=== PATIENT | female | born 1940 | race Caucasian/White ===

== ENCOUNTER 2016-10-02 08:35 | Emergency (ER) | payer OTHER ==
[~2016-10-02] VITALS: Ht 160 cm; Wt 60.5 kg
[~2016-10-02 08:35] MED LIST: CALC-354 PO; OMEG10007 PO; VITA400C15 PO
[2016-10-02 08:39] VITALS: PULSE 110; TEMP 36.5; O2SAT 97; Ht 160 cm; Wt 60.5 kg
[2016-10-02] MEDS ORDERED: VITA1TAB4 PO (09:39)
[2016-10-02] MEDS ORDERED: CINN1CAP2 PO (09:41)
[2016-10-02] MEDS ORDERED: ASPI81TA28 PO (09:42)
[2016-10-02] MEDS ORDERED: MULT-506 PO (09:42)
[2016-10-02 10:16] LABS: BASO % 0.1 %; BASO ABS # 0.01 K/uL (0-0.2); COMPLETE YES; EOS % 0.8 %; HEMATOCRIT 39.7 % (37-47); IG% 0.1 %; LYMPH % 15.5 %; LYMPH ABS # 1.24 K/uL (1.2-3.4); MEAN CELL VOLUME 89.8 fL (80-100); MEAN CORPUSCULAR HEMOGLOBIN 29.9 pg (25-34); MEAN CORPUSCULAR HGB CONC 33.2 g/dl (32-36); MEAN PLATELET VOLUME 9.7 fL (7.4-10.4); MONO % 8.8 %; NEUT % 74.7 %; PLATELET COUNT 236 K/uL (130-400); RED BLOOD COUNT 4.42 M/uL (4.2-5.4); WHITE BLOOD COUNT 7.98 K/uL (4.8-10.8)
[2016-10-02 10:24] LABS: PROTHROMBIN TIME (PATIENT) 10.5 SECONDS (9.0-12.0)
[2016-10-02 10:36] LABS: BUN/CREATININE RATIO 21.9 (10-20); C-REACTIVE PROTEIN 1.18 mg/dl (0-0.29); CALCIUM 9.6 mg/dl (8.5-10.1); POTASSIUM 4.1 mmol/L (3.5-5.1)
[2016-10-02 10:38] LABS: ALB/GLOB RATIO 1.1 (0.9-2)
--- NOTE | 2016-10-02 10:49 | DIAGNOSTIC IMAGING REPORT ---
LEFT KNEE 3 VIEWS CLINICAL HISTORY: LEFT, POPLITEAL RASH AND PAIN X WEEKS pain COMPARISON: None. DISCUSSION: Considerable degenerative change all major joint compartments. Reactive osteophytic change throughout. There is no significant joint effusion. There is no fracture or dislocation. IMPRESSION: Considerable degenerative change. No acute process. Electronically signed by: Ortega Borjas M.D. 10/02/2016 10:48 AM Dictated Date/Time: 10/02/2016 10:33 AM
[2016-10-02 11:43] LABS: LYME DISEASE AB IGM NEG (NEG)
[2016-10-02 11:47] LABS: LYME DISEASE AB IGG POS (NEG)
[2016-10-02] MEDS ORDERED: CEFTRIAXONE SOD INJ 1 GM ADDVIAL IV STA (11:58)
[2016-10-02] MEDS ORDERED: DOXY100C76 PO (12:29)
--- NOTE | 2016-10-02 12:29 | EMERGENCY ROOM VISIT NOTE ---
History First contact with patient: 08:52 Chief Complaint: KNEEPAIN Stated Complaint: LEFT KNEE History of Present Illness Patient is a 76-year-old white female who presents emergency department for evaluation of a red rash behind her left knee. She's had symptoms for about 2 or 3 weeks. She states it was initially a small, round, red rash, which has progressively enlarged, and is wrapping around medially and laterally towards the anterior aspect of the knee. She notes that it is warm, and slightly swollen. She has a history of chronic knee pain, with a remote history of a knee sprain a couple of years ago, but denies any increase in pain. She denies any fever or chills. She is outside in her garden a lot. Her is presently being treated for Lyme disease. She denies any nausea, vomiting, chest pain, shortness of breath, other joint pain or swelling, fever, chills or other skin rashes. She reports that her tetanus is up-to-date. She reports that she can still walk and bend and bear weight on the leg normally. She denies any other joint pain or swelling. Review of Systems Review of systems as per HPI. All other systems reviewed were negative. 10 systems reviewed. Past Medical/Surgical History Medical Problems: (1) Abdominal pain (2) Diabetes Surgical Problems: (1) History of ventral hernia repair Electronic medical records are reviewed and summarized as above/below. See Problem List. Social History Smoking Status: Never Smoker Marital Status: Housing Status: lives with family Occupation Status: retired Current/Historical Medications Scheduled Aspirin (Aspirin Ec), 81 MG PO DAILY Calcium Carbonate-Cholecalcife (Caltrate 600+D), 1 TAB PO DAILY Cinnamon (Cinnamon), 500 MG PO DAILY Doxycycline Monohydrate (Monodox), 100 MG PO BID Fish Oil ([place]-3), 1 CAP PO DAILY Multivitamin (Multivitamin), 1 TAB PO DAILY Vitamin E (Vitamin E), 400 UNITS PO DAILY Allergies Coded Allergies: Amoxicillin (Verified Allergy, Unknown, blisters, 10/02/16) Clavulanic Acid (Verified Allergy, Unknown, blisters, 10/02/16) Physical Exam Vital Signs Date Time Temp Pulse Resp B/P (MAP) Pulse Ox O2 Delivery O2 Flow Rate FiO2 10/02/16 12:57 142/80 10/02/16 11:08 145/84 10/02/16 08:39 36.5 110 18 154/92 97 Room Air Physical Exam CONSTITUTIONAL: Patient is a pleasant, well-appearing 76-year-old white female who is awake and alert and in no acute distress. HEENT: Normocephalic, atraumatic. Pupils equal, round, reactive to light and accommodation. EOMs intact without nystagmus. Sclera are anicteric. Tympanic membranes intact, with normal landmarks. External canals are clear. Oral and nasopharynx are clear. Mucous membranes are moist. CARDIOVASCULAR: Regular rate and rhythm, with normal S1 and S2, no murmur or gallop or rub is heard. No carotid bruits auscultated. No JVD. Peripheral pulses easily palpable. RESPIRATORY: Breath sounds equal and clear to auscultation without wheezes, rales, or rhonchi heard. Full and equal chest expansion without accessory muscle use or retractions. INTEGUMENTARY: Erythematous, non-blanchable oval-shaped rash, noted in the right popliteal space, extending medially and laterally almost circumferential around the entire knee. There is no petechiae, vesicles noted. Slightly warm, no induration appreciated. There is no lymphangitic streaking. MUSCULOSKELETAL: Examination of the left knee notes the skin changes as above, primarily in the popliteal space. Skin is otherwise intact. There is no prepatellar soft tissue swelling or effusion. Joint effusion is palpable. The knee is nontender to palpation. Range of motion is full. Normal gait. No ligamentous instability is appreciated. The calf is soft and nontender. No palpable cords. Negative Homans sign. LYMPH: No lymphadenopathy. Medical Decision & Procedures ER Provider Diagnostic Interpretation: LEFT KNEE 3 VIEWS CLINICAL HISTORY: LEFT, POPLITEAL RASH AND PAIN X WEEKS pain COMPARISON: None. DISCUSSION: Considerable degenerative change all major joint compartments. Reactive osteophytic change throughout. There is no significant joint effusion. There is no fracture or dislocation. IMPRESSION: Considerable degenerative change. No acute process. Laboratory Results 10/02/16 09:50 Red Blood Count 4.42, Mean Corpuscular Volume 89.8, Mean Corpuscular Hemoglobin 29.9, Mean Corpuscular Hemoglobin Concent 33.2, Mean Platelet Volume 9.7, Neutrophils (%) (Auto) 74.7, Lymphocytes (%) (Auto) 15.5, Monocytes (%) (Auto) 8.8, Eosinophils (%) (Auto) 0.8, Basophils (%) (Auto) 0.1, Neutrophils # (Auto) 5.96, Lymphocytes # (Auto) 1.24, Monocytes # (Auto) 0.70, Eosinophils # (Auto) 0.06, Basophils # (Auto) 0.01 10/02/16 09:50 Test 10/02/16 09:50 White Blood Count 7.98 K/uL (4.8-10.8) Red Blood Count 4.42 M/uL (4.2-5.4) Hemoglobin 13.2 g/dL (12.0-16.0) Hematocrit 39.7 % (37-47) Mean Corpuscular Volume 89.8 fL (80-100) Mean Corpuscular Hemoglobin 29.9 pg (25-34) Mean Corpuscular Hemoglobin Concent 33.2 g/dl (32-36) Platelet Count 236 K/uL (130-400) Mean Platelet Volume 9.7 fL (7.4-10.4) Neutrophils (%) (Auto) 74.7 % Lymphocytes (%) (Auto) 15.5 % Monocytes (%) (Auto) 8.8 % Eosinophils (%) (Auto) 0.8 % Basophils (%) (Auto) 0.1 % Neutrophils # (Auto) 5.96 K/uL (1.4-6.5) Lymphocytes # (Auto) 1.24 K/uL (1.2-3.4) Monocytes # (Auto) 0.70 K/uL (0.11-0.59) Eosinophils # (Auto) 0.06 K/uL (0-0.5) Basophils # (Auto) 0.01 K/uL (0-0.2) RDW Standard Deviation 43.7 fL (36.4-46.3) RDW Coefficient of Variation 13.2 % (11.5-14.5) Immature Granulocyte % (Auto) 0.1 % Immature Granulocyte # (Auto) 0.01 K/uL (0.00-0.02) Erythrocyte Sedimentation Rate 34 mm/hr (0-21) Prothrombin Time 10.5 SECONDS (9.0-12.0) Prothromb Time International Ratio 1.0 (0.9-1.1) Activated Partial Thromboplast Time 25.6 SECONDS (21.0-31.0) Partial Thromboplastin Ratio 1.0 Anion Gap 6.0 mmol/L (3-11) Est Creatinine Clear Calc Drug Dose 39.6 ml/min Estimated GFR () 63.4 Estimated GFR (Non- 54.7 BUN/Creatinine Ratio 21.9 (10-20) Calcium Level 9.6 mg/dl (8.5-10.1) Total Bilirubin 0.7 mg/dl (0.2-1) Aspartate Amino Transf (AST/SGOT) 17 U/L (15-37) Alanine Aminotransferase (ALT/SGPT) 23 U/L (12-78) Alkaline Phosphatase 91 U/L (45-117) C-Reactive Protein 1.18 mg/dl (0-0.29) Total Protein 7.2 gm/dl (6.4-8.2) Albumin 3.7 gm/dl (3.4-5.0) Globulin 3.5 gm/dl (2.5-4.0) Albumin/Globulin Ratio 1.1 (0.9-2) Lyme Disease IgG Antibody POS (NEG) Medications Administered Medications (Trade) Dose Ordered Sig/Kacy Route Start Time Stop Time Status Last Admin Dose Admin Ceftriaxone Sodium (Rocephin Inj) 1 gm NOW STAT IV 10/02/16 11:58 10/02/16 11:59 DC 10/02/16 12:51 1 GM ED Course The patient was seen and assessed as above. Old records were reviewed. IV lock was initiated and laboratory studies were collected including CBC with differential are, CRP, coags and CMP. Lyme screen was also drawn. Knee x-rays were obtained, and noted degenerative changes, without evidence for acute pathology. Laboratory studies noted a normal white count. Slight elevation of her sedimentation rate and CRP. Coags, electrolytes, liver and renal functions are within normal limits. Lyme IgG was positive, Western blot is pending. Clinically, the patient rash does appear consistent with an erythema migrans. She has had progressively worsening symptoms for about 2-3 weeks. She was given Rocephin 1 g IV. Differential diagnoses also entertained included septic joint, Lyme arthritis, DVT, superficial thrombophlebitis, cellulitis, among others. Patient was also independently evaluated by Dr. Myers, who concurred. The patient will be placed on doxycycline for presumed Lyme disease. She was educated only worrisome signs or symptoms for which they should return to the emergency department. She should otherwise follow up with her primary care provider next week. She is discharged home in good condition. Vital signs were stable. Medication reconciliation: I attest that I have personally reviewed the patient' s current medication list. Blood pressure screening: Patient was found to have a slightly elevated blood pressure due to circumstances. I do not believe that the patient requires hypertension monitoring. Medical Decision See Emergency Department course. Impression Primary Impression: Erythema migrans (Lyme disease) Departure Information Prescriptions Doxycycline Monohydrate (Monodox) 100 Mg Cap 100 MG PO BID, #21 CAP Prov: Pamella Romero PA 10/02/16 Referrals Neyda Moyer M.D. (PCP) Patient Instructions My [facility] Additional Instructions Doxycycline 100mg: Take one pill twice daily for 21 days for your infection. Take with food, but avoid dairy. Avoid prolonged sun exposure since this medication makes you temporarily more susceptible to sunburns. All antibiotics can cause diarrhea. If this occurs and you feel worse or it does not resolve in 1-2 days follow up with your doctor or return to the Emergency Department as this could be signs of serious underlying problems. Any medication can cause an allergic reaction, stop the pills immediately and return to the ER for rash, hives, breathing difficulties, or swelling. Ibuprofen(Motrin, Advil) may be used for fever or pain. Use 600mg every six hours as needed. Take with food. Avoid using more than 2400mg in a 24 hour period. Do not use 2400mg per day for more than three consecutive days without physician direction. Prolonged inappropriate use can lead to stomach upset or ulcers. This is available over the counter and typically comes in 200mg tablets. (AND/OR) Acetaminophen(Tylenol) may be used for fever or pain. Use 1000mg every eight hours as needed. Avoid using more than 3000mg in a 24 hour period. This is available over the counter. Rest and drink plenty of fluids. Continue current medications. Return to the ER for severe pain, persistent fevers, spreading redness, headache , vomiting, neck pain or stiffness, chest pain, palpitations or any worsening of your condition. Follow up with your primary physician within 2-3 days for a recheck of the current condition.
[2016-10-02 12:57] VITALS: BP 142/80
--- NOTE | 2016-10-02 15:20 | EMERGENCY ROOM VISIT NOTE ---
ED Visit Note First contact with patient: 08:52 I have personally evaluated this patient examined her and reviewed the pertinent labs and data. I have discussed the case with Luz Romero, the physician assistant drafter and agree with the plan. Please refer to the PA note. This patient comes in and has redness behind the left knee radiating around. It is circular. It may be consistent with Lyme/erythema migrans. The knee itself is not rare red or warm. X-rays of the knee are unremarkable. Her Lyme titer was positive for the IgG . Her is being treated for Lyme. We will cover her with antibiotics for possible Lyme disease or cellulitis. At this point she is neurologically and neurovascularly intact and there is nothing to suggest DVT or septic joint.
[2016-10-05 08:33] LABS: 18KDIGG BAND NONREACTIVE (NONREACTIVE); 23KDIGG BAND NONREACTIVE (NONREACTIVE); 23KDIGM BAND NONREACTIVE (NONREACTIVE); 28KDIGG BAND NONREACTIVE (NONREACTIVE); 30KDIGG BAND REACTIVE (NONREACTIVE); 39KDIGG BAND NONREACTIVE (NONREACTIVE); 39KDIGM BAND NONREACTIVE (NONREACTIVE); 41KDIGG BAND REACTIVE (NONREACTIVE); 41KDIGM BAND REACTIVE (NONREACTIVE); 45KDIGG BAND REACTIVE (NONREACTIVE); 58KDIGG BAND REACTIVE (NONREACTIVE); 66KDIGG BAND REACTIVE (NONREACTIVE); 93KDIGG BAND NONREACTIVE (NONREACTIVE)
== END 2016-10-02 13:45 | disposition home or self-care (01) ==
LOC: C.EDB 08:36
DX: A26.0 Cutaneous erysipeloid (principal); E11.9 Type 2 diabetes mellitus without complications; Z79.82 Long term (current) use of aspirin

== ENCOUNTER 2021-12-17 15:41 | Inpatient (IN) ==
[2021-12-17] MEDS ORDERED: SODIUM CHLORIDE 0.9% 1000ML 1,000 ML IV SCH (16:15)
[2021-12-17] MEDS ORDERED: SODIUM CHLORIDE 0.9% 500 ML IV SCH (16:15)
[2021-12-17 16:33] LABS: Basophils # (auto) 0.02 K/uL (0-0.2); Basophils % (auto) 0.1 %; Eosinophils # (auto) 0.01 K/uL (0-0.50); Eosinophils % (auto) 0.1 %; Hematocrit (blood only) 40.5 % (34.1-44.9); Hemoglobin 13.4 g/dl (12.0-16.0); Immature Granulocytes # (auto) 0.03 K/uL (0.00-0.02); Immature Granulocytes % (auto) 0.2 %; Lymphocytes # (auto) 1.32 K/uL (1.2-3.4); Lymphocytes % (auto) 9.7 %; Mean Corpuscular Hgb Conc 33.1 g/dL (32.0-36.0); Mean Corpuscular Volume 90.6 fL (80.0-100.0); Mean Platelet Volume 10.8 fL (9.4-12.3); Monocytes # (auto) 1.16 K/uL (0.24-0.82); Monocytes % (auto) 8.5 %; Neutrophils # (auto) 11.03 K/uL (1.4-6.5); Neutrophils % (auto) 81.4 %; Platelet Count 225 K/uL (130-400); RDW Coefficient of Variation 13.1 % (11.5-14.5); Red Blood Count 4.47 M/uL (3.93-5.22); White Blood Count 13.57 K/ul (4.8-10.8)
--- NOTE | 2021-12-17 16:38 | XRay Report ---
XR chest 1V portable HISTORY: weakness COMPARISON: Chest and abdominal series 06/12/2014. FINDINGS: Slightly rotated study. No pneumothorax. No pleural effusions. The cardiac silhouette remai ns borderline enlarged. There are low lung volumes. Mild diffuse interstitial thickening which is lik shanelle chronic. No new focal lung consolidations to suggest pneumonia. No evidence for pulmonary edema. IMPRESSION: No acute process. ACT 112: Negative or not required by law. Electronically signed by: Tristan Flynn M.D. 12/17/2021 4:37 PM
[2021-12-17 16:51] LABS: Albumin Globulin Ratio 1.7 (0.9-2); Albumin Level 3.9 gm/dl (3.4-5.0); BUN Creatinine Ratio 23.1 (10-20); Bilirubin,Total 0.9 mg/dl (0.2-1.0); Calcium 9.3 mg/dl (8.5-10.1); Creatinine Clr Calc Pharmacy 29.8 ml/min; Est GFR (African American) 50.6 ml/min; Est GFR (Non-African American) 43.7 ml/min; Globulin 2.3 gm/dl (2.5-4.0); Magnesium 1.9 mg/dl (1.7-2.4); Potassium 4.3 mmol/L (3.5-5.1); Total Protein 6.2 gm/dl (6.0-8.3)
[2021-12-17 16:56] LABS: Troponin I High Sensitivity 8.8 pg/ml (0-14)
[2021-12-17 17:00] LABS: Appearance Urine Clear (Clear); Bacteria Urine Automated Negative (Negative); Blood Urine Negative (Negative); Color Urine Dark Yellow; Epithelial Cell Urine Auto >30 /lpf (0-5); Glucose Urine UA 3+ (Negative); Ketones Urine Trace (Negative); Leukocyte Esterase Urine Trace (Negative); Nitrite Urine Negative (Negative); Protein Urine Trace (Negative); Specific Gravity Urine 1.031 (1.000-1.030); Urobilinogen Urine Negative (Negative)
[2021-12-17] MEDS ORDERED: ACETAMINOPHEN 1,000 MG/100 ML VIAL IV STA (17:01)
[2021-12-17 17:04] LABS: Bilirubin Urine 1+ (Negative)
--- NOTE | 2021-12-17 17:07 | Emergency Department Note ---
Impression & Plan Nausea, vomiting, and diarrhea, Retrosternal chest pain, Generalized weakness, Generalized abdominal pain, Colitis ED Provider Note INFORMANT: Patient and family ED PROVIDER(S): Armen Duvall MD CHIEF COMPLAINT: Nausea and vomiting PLAN: Disposition: Admitted Condition: Good Outpatient prescription management: none Referral: None MEDICAL DECISION MAKING: Patient presented because of nausea, vomiting, diarrhea and generalized weakness. A work-up was initiated. The patient was found to have a mild leukocytosis on CBC. Chemistry panel revealed dehydration. Urinalysis did lyons se some concerns for infection. Chest x-ray was negative. CT scan of the abdomen pelvis was performed and did reveal a nonspecific colitis. The patient was given a dose of IV Rocephin. She also treated with IV Tylenol. I discussed further management in the hospital with the family and they were in agreement. Consultation was made with Dr. Watson Cohen of the [facility] service. Patient was evaluated in the ER for further management. Triage Nursing notes reviewed and agree them. Vital Signs: reviewed and remarkable for no significant abnormalities Differential diagnosis: Etiologies such as gastroenteritis, food borne illness, infections, appendicitis, diverticulitis, inflammatory bowel disease, GI bleed, biliary pa thology, as well as others were entertained. Diagnostics interpreted by me: EC Lead ECG performed and revealed sinus tachycardic rhythm at 113, normal [place], QRS normal. No elevation or depression. No PACs or PVCs Cardiac Monitoring: Cardiac monitoring ordered by me: The patient was placed on continuous cardiac monitoring and observed. It revealed a normal sinus rhythm at 97 beats per minute without ectopy or evidence of dysrhythmia. Imaging studies: CT scan as noted above Chest x-ray. Findings: A chest x-ray was performed and revealed no pneumothorax, effusion, infiltrate, pulmonary edema, free air under the diaphragm, or wide mediastinum. Impression: No acute disease. HPI: The patient is a 81year old female who presents to the Emergency Room with complaints of nausea vomiting. This started last night at 10 PM and is resolved however the patient also had multiple episodes of diarrhea. The patient also notes the following associated symptoms, generalized abdominal pain, substernal chest pain which has resolved. The patient has tried Pepto for relieving factors. Patient has dementia and is unable to rate her pain levels. He denies any recent illnesses. is present and helps with history. He states that he has been in good health. No COVID contacts. Pt denies LOC, headache, fevers, chills, diaphoresis, visual changes, neck pain, breathing difficulties, back pain, melena, hematochezia, urinary symptoms, numbness, weakness, lymphadenopathy, rash, or other complaints. ROS: See above HPI for pertinent positives & negatives. A total of 10 systems reviewed and were otherwise negative. PAST MEDICAL HISTORY:See Below , dementia PAST SURGICAL HISTORY:See Below, FAMILY HISTORY:See Below SOCIAL HISTORY:See Below, lives with HOME MEDICATIONS:See Below ALLERGIES:See Below VITALS:See Below PHYSICAL EXAMINATION: GENERAL: Awake, tired appearing, in no distress HENT: Normocephalic, atraumatic. Oropharynx unremarkable. EYES: Normal conjunctiva. Sclera non-icteric. NECK: Inspection normal. Non-tender. Supple. No nuchal rigidity. FROM. No masses. RESPIRATORY: Clear to auscultation. No wheezes. No rales. Normal respiratory effort. CARDIAC: Tachycardic rate. Normal rhythm. No murmurs. No rubs. Extremities warm and well perfused. Pulses equal. No JVD. GI: Soft, non-distended. Mild generalized tenderness to palpation. No rebound or guarding. No masses. RECTAL: Deferred. MUSCULOSKELETAL: Atraumatic. Chest examination reveals no tenderness. The back is symmetrical on inspection without obvious abnormality. There is no CVA tenderness to palpation. No joint edema. LOWER EXTREMITIES: Calves are equal size bilaterally and non-tender. No edema. No discoloration. NEURO: Demented sensorium. No sensory or motor deficits noted. SKIN: No rash or jaundice noted. Armen Duvall MD Past Med/Surg History Medical History (Updated 12/18/21 @ 01:02 by Armen Duvall MD) Alzheimer's dementia No pertinent family history No pertinent past medical history Surgical History (Updated 12/12/19 @ 23:26 by Aram Melendez) No pertinent past surgical history Family History (Updated 12/17/21 @ 20:20 by ZAHRA Cox) Other Family history non-contributory Social History Smoking Status: Never smoker Preferred Language: Persian Feels Safe at Home: Yes Allergies Allergies Allergy/AdvReac Type Severity Reaction Status Date / Time amoxicillin Allergy Unknown blisters Verified 10/02/16 09:37 clavulanic acid Allergy Unknown blisters Verified 10/02/16 09:37 Home Meds Home Medications Medication Instructions Recorded Confirmed CALCIUM CARBONATE-CHOLECALCIFE 1 tab PO DAILY ##0 06/12/14 (CALTRATE 600+D) Fish Oil ([place]-3) 1 cap PO DAILY #0 caps 06/12/14 ASPIRIN (ASPIRIN EC) 81 mg PO DAILY ##0 10/02/16 CINNAMON 500 mg PO DAILY ##0 10/02/16 Multivitamin 1 tab PO DAILY #0 tabs 10/02/16 VITAMIN E 400 unit PO DAILY ##0 10/02/16 Results & Data (ED) Vital Signs Vital Signs - 24 hr 12/17/21 15:58 12/17/21 16:03 12/17/21 16:19 Temperature 36.9 C Temperature Source Oral Pulse Rate 102 H Pulse Rate [Right Finger] 103 H Respiratory Rate 26 H 26 H Respiratory Effort / Characteristics Non-Labored Respiratory Depth Normal Blood Pressure 131/76 Blood Pressure [Right Arm] 131/76 Blood Pressure Mean 94 Blood Pressure Mean [Right Arm] 94 Pulse Oximetry 96 95 96 Oxygen Delivery Method Room Air Room Air Room Air Sepsis Recent Fever Within 48 Hours Yes Sepsis New/Unexplained Change in Mental Status No Sepsis Action Taken by Nursing No Action Required 12/17/21 18:28 Temperature Temperature Source Pulse Rate Pulse Rate [Right Finger] 85 Respiratory Rate 16 Respiratory Effort / Characteristics Respiratory Depth Blood Pressure Blood Pressure [Right Arm] 118/69 Blood Pressure Mean Blood Pressure Mean [Right Arm] 85 Pulse Oximetry 95 Oxygen Delivery Method Room Air Sepsis Recent Fever Within 48 Hours Sepsis New/Unexplained Change in Mental Status Sepsis Action Taken by Nursing Laboratory Data Result diagrams: 12/17/21 15:12 12/17/21 15:12 Lab Results 12/17/21 12/17/21 12/17/21 Range/Units 15:12 15:12 15:12 WBC 13.57 H (4.8-10.8) K/ul RBC 4.47 (3.93-5.22) M/uL Hgb 13.4 (12.0-16.0) g/dl Hct 40.5 (34.1-44.9) % MCV 90.6 (80.0-100.0) fL MCH 30.0 (25.0-34.0) pg MCHC 33.1 (32.0-36.0) g/dL RDW Std Deviation 43.0 (36.4-46.3) fL RDW Coeff of Dash 13.1 (11.5-14.5) % Plt Count 225 (130-400) K/uL MPV 10.8 (9.4-12.3) fL Immature Gran % (Auto) 0.2 % Neut % (Auto) 81.4 % Lymph % (Auto) 9.7 % [place] % (Auto) 8.5 % Eos % (Auto) 0.1 % Baso % (Auto) 0.1 % Neut # (Auto) 11.03 H (1.4-6.5) K/uL Lymph # (Auto) 1.32 (1.2-3.4) K/uL [place] # (Auto) 1.16 H (0.24-0.82) K/uL Eos # (Auto) 0.01 (0-0.50) K/uL Baso # (Auto) 0.02 (0-0.2) K/uL Immature Gran # (Auto) 0.03 H (0.00-0.02) K/uL Sodium 138 (136-145) mmol/L Potassium 4.3 (3.5-5.1) mmol/L Chloride 103 (98-107) mmol/L Carbon Dioxide 25 (21-32) mmol/L Anion Gap 10 (3-11) BUN 27 H (6-23) mg/dl Creatinine 1.17 (0.6-1.2) mg/dl Est Cr Clr Drug Dosing 29.8 ml/min Est GFR ( Amer) 50.6 ml/min Est GFR (Non-Af Amer) 43.7 ml/min BUN/Creatinine Ratio 23.1 H (10-20) Glucose 290 H (70-99(Fasting)) mg/dl Calcium 9.3 (8.5-10.1) mg/dl Magnesium 1.9 (1.7-2.4) mg/dl Total Bilirubin 0.9 (0.2-1.0) mg/dl AST 18 (13-39) U/L ALT 15 (7-52) U/L Alkaline Phosphatase 103 (34-104) U/L Troponin I High Sens 8.8 (0-14) pg/ml Total Protein 6.2 (6.0-8.3) gm/dl Albumin 3.9 (3.4-5.0) gm/dl Globulin 2.3 L (2.5-4.0) gm/dl Albumin/Globulin Ratio 1.7 (0.9-2) TSH 2.407 (0.300-4.500) uIu/ml Urine Color Urine Appearance (Clear) Urine pH (4.5-7.5) Ur Specific Gray (1.000-1.030) Urine Protein (Negative) Urine Glucose (UA) (Negative) Urine Ketones (Negative) Urine Blood (Negative) Urine Nitrite (Negative) Urine Bilirubin (Negative) Urine Urobilinogen (Negative) Ur Leukocyte Esterase (Negative) Urine WBC (Auto) (0-5) /hpf Urine RBC (Auto) (0-4) /hpf U Hyaline Cast (Auto) (0-5) /lpf U Epithel Cells (Auto) (0-5) /lpf Urine Bacteria (Auto) (Negative) Ur Renal Epithelial Cell SARS-CoV-2 (PCR) SARS-CoV-2, RNA, NAAT (NEGATIVE) 12/17/21 12/17/21 12/17/21 Range/Units 16:21 16:21 16:30 WBC (4.8-10.8) K/ul RBC (3.93-5.22) M/uL Hgb (12.0-16.0) g/dl Hct (34.1-44.9) % MCV (80.0-100.0) fL MCH (25.0-34.0) pg MCHC (32.0-36.0) g/dL RDW Std Deviation (36.4-46.3) fL RDW Coeff of Dash (11.5-14.5) % Plt Count (130-400) K/uL MPV (9.4-12.3) fL Immature Gran % (Auto) % Neut % (Auto) % Lymph % (Auto) % [place] % (Auto) % Eos % (Auto) % Baso % (Auto) % Neut # (Auto) (1.4-6.5) K/uL Lymph # (Auto) (1.2-3.4) K/uL [place] # (Auto) (0.24-0.82) K/uL Eos # (Auto) (0-0.50) K/uL Baso # (Auto) (0-0.2) K/uL Immature Gran # (Auto) (0.00-0.02) K/uL Sodium (136-145) mmol/L Potassium (3.5-5.1) mmol/L Chloride (98-107) mmol/L Carbon Dioxide (21-32) mmol/L Anion Gap (3-11) BUN (6-23) mg/dl Creatinine (0.6-1.2) mg/dl Est Cr Clr Drug Dosing ml/min Est GFR ( Amer) ml/min Est GFR (Non-Af Amer) ml/min BUN/Creatinine Ratio (10-20) Glucose (70-99(Fasting)) mg/dl Calcium (8.5-10.1) mg/dl Magnesium (1.7-2.4) mg/dl Total Bilirubin (0.2-1.0) mg/dl AST (13-39) U/L ALT (7-52) U/L Alkaline Phosphatase (34-104) U/L Troponin I High Sens (0-14) pg/ml Total Protein (6.0-8.3) gm/dl Albumin (3.4-5.0) gm/dl Globulin (2.5-4.0) gm/dl Albumin/Globulin Ratio (0.9-2) TSH (0.300-4.500) uIu/ml Urine Color Dark Yellow Urine Appearance Clear (Clear) Urine pH 5.0 (4.5-7.5) Ur Specific Gray 1.031 H (1.000-1.030) Urine Protein Trace H (Negative) Urine Glucose (UA) 3+ H (Negative) Urine Ketones Trace H (Negative) Urine Blood Negative (Negative) Urine Nitrite Negative (Negative) Urine Bilirubin 1+ H (Negative) Urine Urobilinogen Negative (Negative) Ur Leukocyte Esterase Trace H (Negative) Urine WBC (Auto) 10-30 H (0-5) /hpf Urine RBC (Auto) 0-4 (0-4) /hpf U Hyaline Cast (Auto) 5-10 H (0-5) /lpf U Epithel Cells (Auto) >30 H (0-5) /lpf Urine Bacteria (Auto) Negative (Negative) Ur Renal Epithelial Cell Not Reportable SARS-CoV-2 (PCR) Cancelled SARS-CoV-2, RNA, NAAT NEGATIVE (NEGATIVE) Administered Medications Heparin Sodium (Porcine) (Heparin Sod 5,000 Unit/0.5 Ml Vial) 5,000 units SQ Q12 MANJEET Stop: 01/16/22 21:34 Last Admin: 12/17/21 22:42 Dose: 5,000 units Documented By: EW Potassium Chloride/Sodium Chloride (Normal Saline W/20 Meq Kcl) 20 meq in 1,000 mls @ 80 mls/hr IV .[id number] MANJEET; Protocol Stop: 01/16/22 21:34 Last Admin: 12/18/21 00:15 Dose: 80 mls/hr Documented By: EW Famotidine 20 mg/ Syringe 5 mls @ 2.5 mls/min IV Q12 MANJEET Stop: 01/16/22 21:34 Last Admin: 12/17/21 22:41 Dose: 2.5 mls/min Documented By: REYNOLD Metronidazole (Flagyl) 500 mg in 100 mls @ 100 mls/hr IV Q8H MANJEET Stop: 12/27/21 21:34 Last Admin: 12/18/21 00:15 Dose: 100 mls/hr Documented By: REYNOLD Insulin Aspart (Insulin Aspart Per Unit) 0 units SC ACHS MANJEET Stop: 01/16/22 21:34 Last Admin: 12/17/21 22:47 Dose: 2 units Documented By: REYNOLD Co-signed By: RASHAWN Olanzapine (Olanzapine 5 Mg Tablet) 5 mg PO Q6 MANJEET Stop: 01/16/22 22:59 Last Admin: 12/18/21 00:16 Dose: 5 mg Documented By: EW Discontinued Medications Sodium Chloride (Nss) 500 mls @ 999 mls/hr IV .Q31M MANJEET Stop: 12/17/21 16:45 Last Infusion: 12/17/21 17:03 Dose: 0 mls/hr Documented By: Admin: 12/17/21 16:32 Dose: 999 mls/hr Documented By: KATERIN Sodium Chloride (Nss 1000ml) 1,000 mls @ 125 mls/hr IV .Q8H MANJEET Stop: 12/18/21 00:14 Last Infusion: 12/17/21 21:50 Dose: 0 mls/hr Documented By: Admin: 12/17/21 18:34 Dose: 125 mls/hr Documented By: MES Acetaminophen (Ofirmev) 1,000 mg in 100 mls @ 400 mls/hr IV NOW STA Stop: 12/17/21 17:15 Last Infusion: 12/17/21 17:53 Dose: 0 mls/hr Documented By: Admin: 12/17/21 17:13 Dose: 400 mls/hr Documented By: MES Ceftriaxone Sodium (Rocephin) 1,000 mg in 50 mls @ 100 mls/hr IV NOW STA Stop: 12/17/21 19:42 Last Infusion: 12/17/21 21:41 Dose: 0 mls/hr Documented By: Admin: 12/17/21 20:14 Dose: 100 mls/hr Documented By: MED Imaging Data Radiologist's Impression: Chest X-Ray 12/17/21 16:10 XR chest 1V portable HISTORY: weakness COMPARISON: Chest and abdominal series 06/12/2014. FINDINGS: Slightly rotated study. No pneumothorax. No pleural effusions. The cardiac silhouette remains borderline enlarged. There are low lung volumes. Mild diffuse interstitial thickening which is likely chronic. No new focal lung c onsolidations to suggest pneumonia. No evidence for pulmonary edema. IMPRESSION: No acute process. ACT 112: Negative or not required by law. Electronically signed by: Tristan Flynn M.D. 12/17/2021 4:37 PM Abdomen/Pelvis CT 12/17/21 17:[address] WITHOUT CONTRAST CT DOSE: 304.17 mGy.cm HISTORY: vomiting, generalized abd pain TECHNIQUE: Multiaxial CT images of the abdomen and pelvis were performed without contrast. A dose lowering technique was utilized adhering to the principles of ALARA. COMPARISON STUDY: Abdomen and pelvis CT 06/12/2014. FINDINGS: Mild dependent changes seen at the lung bases. No pneumoperitoneum. No pneumatosis. Levoscoliosis and degenerative changes seen within the lumbar spine. There is a small to moderate hiatus hernia. The gallbladder is distended. This has slightly progressed. However, there is no gallbladder wall thickening. The unenhanced liver, pancreas, spleen, adrenal glands, and kidneys are unremarkable. The common bile duct measures up to 8 mm in diameter. This is considered to be top normal in size for the patient's age. No retroperitoneal lymphadenopathy. Moderate calcified plaque within the normal caliber abdominal aorta. The bladder, uterus, and bilateral adnexa are within normal limits. No significant pelvic free fluid. Suboptimal evaluation for bowel pathology due to the lack of intravenous and oral contrast. Moderate well-formed stool seen within the colon. No evidence for bowel obstruction. There is iijm-ol-chfdhjge bowel wall thickening involving the majority of the descending colon and pr oximal to mid sigmoid colon consistent with a nonspecific colitis. There is associated pericolonic fat stranding at this location. There are multiple colonic diverticula. IMPRESSION: 1. Aljs-lr-qtmnzqse bowel wall thickening involving the majority of the descending colon and sigmoid colon with associated pericolonic fat stranding. This is consistent with a nonspecific colitis. 2. The common bile duct is at the upper limits of normal for age measuring 8 mm. The gallbladder is mildly distended which has slightly progressed. However, there is no gallbladder wall thickening. Recommend correlation with LFTs to exclude the possibility of an underlying obstructive process. 3. Colonic diverticulosis. No evidence for acute diverticulitis. 4. No evidence for bowel obstruction. 5. Moderate well-formed stool seen within the colon. 6. Small to moderate hiatus hernia. ACT 112: Negative or not required by law. Electronically signed by: Tristan Flynn M.D. 12/17/2021 7:02 PM Discharge Plan Visit Data Chief Complaint: Illness Stated Complaint: CHEST PAIN ED Provider: Armen Duvall Discharge Problem: Nausea, vomiting, and diarrhea, Retrosternal chest pain, Generalized weakness, Generalized abdominal pain, Colitis Patient Disposition: Admitted As Inpatient Discharge Instructions Interventions: ED Discharge Assessment Last Done: 12/17/21 21:03
[2021-12-17 17:38] LABS: RBC Urine Automated 0-4 /hpf (0-4)
--- NOTE | 2021-12-17 19:03 | CT Scan Report ---
ABDOMEN AND PELVIS CT WITHOUT CONTRAST CT DOSE: 304.17 mGy.cm HISTORY: vomiting, generalized abd pain TECHNIQUE: Multiaxial CT images of the abdomen and pelvis were performed without contrast. A dose lo wering technique was utilized adhering to the principles of ALARA. COMPARISON STUDY: Abdomen and pelvis CT 06/12/2014. FINDINGS: Mild dependent changes seen at the lung bases. No pneumoperitoneum. No pneumatosis. Levosco liosis and degenerative changes seen within the lumbar spine. There is a small to moderate hiatus her eunice. The gallbladder is distended. This has slightly progressed. However, there is no gallbladder wal l thickening. The unenhanced liver, pancreas, spleen, adrenal glands, and kidneys are unremarkable. T he common bile duct measures up to 8 mm in diameter. This is considered to be top normal in size for the patient's age. No retroperitoneal lymphadenopathy. Moderate calcified plaque within the normal ca liber abdominal aorta. The bladder, uterus, and bilateral adnexa are within normal limits. No signifi cant pelvic free fluid. Suboptimal evaluation for bowel pathology due to the lack of intravenous and oral contrast. Moderate well-formed stool seen within the colon. No evidence for bowel obstruction. T here is euwj-gf-lhganuxn bowel wall thickening involving the majority of the descending colon and pro ximal to mid sigmoid colon consistent with a nonspecific colitis. There is associated pericolonic fat stranding at this location. There are multiple colonic diverticula. IMPRESSION: 1. Ddwv-au-dengellc bowel wall thickening involving the majority of the descending colon and sigmoid colon with associated pericolonic fat stranding. This is consistent with a nonspecific colitis. 2. The common bile duct is at the upper limits of normal for age measuring 8 mm. The gallbladder is m ildly distended which has slightly progressed. However, there is no gallbladder wall thickening. Stuart mmend correlation with LFTs to exclude the possibility of an underlying obstructive process. 3. Colonic diverticulosis. No evidence for acute diverticulitis. 4. No evidence for bowel obstruction. 5. Moderate well-formed stool seen within the colon. 6. Small to moderate hiatus hernia. ACT 112: Negative or not required by law. Electronically signed by: Tristan Flynn M.D. 12/17/2021 7:02 PM
[2021-12-17] MEDS ORDERED: cefTRIAXone SODIUM 1,000 MG/50 ML BAG IV STA (19:13)
--- NOTE | 2021-12-17 20:04 | History & Physical Report ---
Date of Service December 17, 2021 Assessment & Plan (1) Colitis: Plan: Patient presents with one day history of diarrhea and nausea/vomiting and diarrhea with fever reported at home. - SIRS- 1, qSOFA- 0 - no evidence of organ dysfunction - WBC 13.2 - hydrate overnight, Flagyl IV - hold on further Rocephin dosing if worsening picture change to zosyn - follow cultures (2) Abnormal gall bladder diagnostic imaging: Plan: Enlarged bile duct and mildly distended gallbladder without thickening and normal LFTS and t.bili - RUQUS - Negative buchanan's sign - follow clinically (3) Alzheimer's dementia: Plan: Continue Olanzapine 5mg q6 hours - dose now - she has PRN Ativan at home and rarely uses per - fall precautions - high (4) Nausea, vomiting, and diarrhea: Plan: Supportive care as above - Famotidine added - NPO overnight (5) Hyperglycemia: Plan: Hyperglycemia without diagnosis of diabetes - insulin sliding scale - A1C in the morning (6) Hypovolemia: Plan: Replete with maintanenece fluids overnight - NPO until morning History of Present Illness Primary Care Provider: Otto Ko, DO 81 YOF with medical history of: Alzheimer's, osteopetrosis, GERD. Patient comes to the EMD today for complaints of abdominal pain, upper chest pain, and diarrhea. Son states that this started around 11 Pm last night and that she was weak and confused this morning and reports having multiple bouts of diarrhea overnight. She is able to talk and answer questions appropriately after some stimulating. She reports that she had some lower quadrant abdominal pain with this and that her upper chest discomfort has resolved. She is also accompanied by her , but he is out at the moment and son states that the is not having any symptoms. Son states that they called EMS and she had a fever when they got there. In the EMD the patient had routine labs performed to include UA, CT abd/pelvis, CXR completed. CT scan of abd/pelvis with bowel wall thickening and fat stranding, likely consistent with nonspecific colitis. She was given dose of Tylenol in the EMD. Patient will be admitted with abx follow cultures and WBC curve. She is non-toxic appearing and no other evidence of organ dysfunction. COVID test on admission is: NEGATIVE Allergies Allergy/AdvReac Type Severity Reaction Status Date / Time amoxicillin Allergy Unknown blisters Verified 10/02/16 09:37 clavulanic acid Allergy Unknown blisters Verified 10/02/16 09:37 Home Medications Medication Instructions Recorded Confirmed Type CALCIUM CARBONATE-CHOLECALCIFE 1 tab PO DAILY ##0 06/12/14 History (CALTRATE 600+D) Fish Oil ([place]-3) 1 cap PO DAILY #0 caps 06/12/14 History ASPIRIN (ASPIRIN EC) 81 mg PO DAILY ##0 10/02/16 History CINNAMON 500 mg PO DAILY ##0 10/02/16 History Multivitamin 1 tab PO DAILY #0 tabs 10/02/16 History VITAMIN E 400 unit PO DAILY ##0 10/02/16 History Past Med/Surg History Medical History Alzheimer's dementia No pertinent family history No pertinent past medical history Surgical History No pertinent past surgical history Family History (Updated 12/17/21 @ 20:20 by ZAHRA Cox) Other Family history non-contributory Social History Smoking Status: Former smoker Hx Alcohol Use: No Hx Substance Use: No Preferred Language: [place] [employer]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 Beliefs That Will Affect Care: None Current Living Situation: Spouse Other Information That Helps Us Care for You: No Feels Safe at Home: Yes Safety Concerns: Feels Safe At This Time Assistive Devices: Glasses Review of Systems Review of Systems: REVIEW OF SYSTEMS: Constitutional: (+) fever, sweats or chills Eyes: No diplopia, no worsening or blurred vision ENT: normal hearing, no trouble swallowing Respiratory: No cough, sputum, dyspnea at rest or on exertion Cardiovascular: No chest pain, tightness or palpitations Abdomen: (+) vomiting, diarrhea No pain, nausea, poor constipation Musculoskeletal: No joint pain, calf pain, swelling Neurologic: No weakness, numbness/tingling, or balance problems Psychiatric: No anxiety or depression Skin: No rash or itch Physical Exam Physical Exam: PHYSICAL EXAM: General: awake, alert, no apparent distress Head: Normocephalic, atraumatic ENT: PERRLA, EOMI, no pharyngeal exudate, mucous membranes dry Neuro: AAO x 3, speech clear and appropriate, strength intact bilaterally 5/5, sensation intact and equal all extremities and dermatomes, no pronator drift, awakens with stimuli and is appropriate Chest: equal rise and fall of the chest, no accessory muscle use, no heaves or thrills, Clear to auscultation, on room air, Cardiac: Regular rate and rhythm, telemetry reviewed, skin warm dry, cap refill <3 seconds, peripheral pulses +2 no JVD, no murmur, no edema GI: hyperactive bowel sounds, quadrants, soft, tender to palpation bilateral lower quad, no rebound, guarding or tenderness, no epigastric tenderness : Spontaneously voiding, no pain, no CVA tenderness, Extremities: Normal inspection, no peripheral edema or erythema, calfs nontender to palpation Psych: Normal mood and affect Skin: no rash or erythema Results & Data Results & Data ([facility]) Vital Signs (Past 12 Hours) Vital Signs Temp Pulse Pulse Resp BP BP Pulse Ox 12/17/21 18:28 85 16 118/69 95 12/17/21 16:19 96 12/17/21 16:03 103 H 26 H 131/76 95 12/17/21 15:58 36.9 C 102 H 26 H 131/76 96 O2 Del Method 12/17/21 18:28 Room Air 12/17/21 16:19 Room Air 12/17/21 16:03 Room Air 12/17/21 15:58 Room Air Laboratory Results Abnormal lab results 12/17/21 12/17/21 12/17/21 Range/Units 15:12 15:12 16:30 WBC 13.57 H (4.8-10.8) K/ul Neut # (Auto) 11.03 H (1.4-6.5) K/uL [place] # (Auto) 1.16 H (0.24-0.82) K/uL Immature Gran # (Auto) 0.03 H (0.00-0.02) K/uL BUN 27 H (6-23) mg/dl BUN/Creatinine Ratio 23.1 H (10-20) Glucose 290 H (70-99(Fasting)) mg/dl Globulin 2.3 L (2.5-4.0) gm/dl Ur Specific [place] 1.031 H (1.000-1.030) Urine Protein Trace H (Negative) Urine Glucose (UA) 3+ H (Negative) Urine Ketones Trace H (Negative) Urine Bilirubin 1+ H (Negative) Ur Leukocyte Esterase Trace H (Negative) Urine WBC (Auto) 10-30 H (0-5) /hpf U Hyaline Cast (Auto) 5-10 H (0-5) /lpf U Epithel Cells (Auto) >30 H (0-5) /lpf Diagnostic Findings Chest X-Ray 12/17/21 16:10 XR chest 1V portable HISTORY: weakness COMPARISON: Chest and abdominal series 06/12/2014. FINDINGS: Slightly rotated study. No pneumothorax. No pleural effusions. The cardiac silhouette remains borderline enlarged. There are low lung volumes. Mild diffuse interstitial thickening which is likely chronic. No new focal lung consolidations to suggest pneumonia. No evidence for pulmonary edema. IMPRESSION: No acute process. ACT 112: Negative or not required by law. Electronically signed by: Tristan Flynn M.D. 12/17/2021 4:37 PM Abdomen/Pelvis CT 12/17/21 17:[address] WITHOUT CONTRAST CT DOSE: 304.17 mGy.cm HISTORY: vomiting, generalized abd pain TECHNIQUE: Multiaxial CT images of the abdomen and pelvis were performed without contrast. A dose lowering technique was utilized adhering to the principles of ALARA. COMPARISON STUDY: Abdomen and pelvis CT 06/12/2014. FINDINGS: Mild dependent changes seen at the lung bases. No pneumoperitoneum. No pneumatosis. Levoscoliosis and degenerative changes seen within the lumbar spine. There is a small to moderate hiatus hernia. The gallbladder is distended. This has slightly progressed. However, there is no gallbladder wall thickening. The unenhanced liver, pancreas, spleen, adrenal glands, and kidneys are unremarkable. The common bile duct measures up to 8 mm in diameter. This is considered to be top normal in size for the patient's age. No retroperitoneal lymphadenopathy. Moderate calcified plaque within the normal caliber abdominal aorta. The bladder, uterus, and bilateral adnexa are within normal limits. No significant pelvic free fluid. Suboptimal evaluation for bowel pathology due to the lack of intravenous and oral contrast. Moderate well-formed stool seen within the colon. No evidence for bowel obstruction. There is [id number] bowel wall thickening involving the majority of the descending colon and proximal to mid sigmoid colon consistent with a nonspecific colitis. There is associated pericolonic fat stranding at this location. There are multiple colonic diverticula. IMPRESSION: 1. [id number] bowel wall thickening involving the majority of the descending colon and sigmoid colon with associated pericolonic fat stranding. This is consistent with a nonspecific colitis. 2. The common bile duct is at the upper limits of normal for age measuring 8 mm. The gallbladder is mildly distended which has slightly progressed. However, there is no gallbladder wall thickening. Recommend correlation with LFTs to exclude the possibility of an underlying obstructive process. 3. Colonic diverticulosis. No evidence for acute diverticulitis. 4. No evidence for bowel obstruction. 5. Moderate well-formed stool seen within the colon. 6. Small to moderate hiatus hernia. ACT 112: Negative or not required by law. Electronically signed by: Tristan Flynn M.D. 12/17/2021 7:02 PM Medications Administered Home Medications CALCIUM CARBONATE-CHOLECALCIFE (CALTRATE 600+D) 1 tab PO DAILY ##0 06/12/14 [History] Fish Oil ([place]-3) 1 cap PO DAILY #0 caps 06/12/14 [History] ASPIRIN (ASPIRIN EC) 81 mg PO DAILY ##0 10/02/16 [History] CINNAMON 500 mg PO DAILY ##0 10/02/16 [History] Multivitamin 1 tab PO DAILY #0 tabs 10/02/16 [History] VITAMIN E 400 unit PO DAILY ##0 10/02/16 [History] Active Medications Sodium Chloride (Nss 1000ml) 1,000 mls @ 125 mls/hr IV .Q8H MANJEET Stop: 12/18/21 00:14 Last Admin: 12/17/21 18:34 Dose: 125 mls/hr Sodium Chloride (Nss 1000ml) 1,000 mls @ 125 mls/hr IV .Q8H MANJEET Stop: 12/18/21 00:14 Last Admin: 12/17/21 18:34 Dose: 125 mls/hr Documented By: MES Discontinued Medications Sodium Chloride (Nss) 500 mls @ 999 mls/hr IV .Q31M MANJEET Stop: 12/17/21 16:45 Last Infusion: 12/17/21 17:03 Dose: 0 mls/hr Documented By: Admin: 12/17/21 16:32 Dose: 999 mls/hr Documented By: MES Acetaminophen (Ofirmev) 1,000 mg in 100 mls @ 400 mls/hr IV NOW STA Stop: 12/17/21 17:15 Last Infusion: 12/17/21 17:53 Dose: 0 mls/hr Documented By: Admin: 12/17/21 17:13 Dose: 400 mls/hr Documented By: KATERIN Ceftriaxone Sodium (Rocephin) 1,000 mg in 50 mls @ 100 mls/hr IV NOW STA Stop: 12/17/21 19:42 Last Admin: 12/17/21 20:14 Dose: 100 mls/hr Documented By: MED ECG Additional Comments: none Code Status & VTE Plan Code Status CODE: FULL VTE: SCDS, Heparin 5000 units subq q12 VTE Prophylaxis Plan VTE Prophylaxis will be ordered: Yes Supervising Physician Co-Signing Physician Notes Attending addendum: I have physically seen this patient, have supervised the SINAN's activities, and agree with the H&P unless as otherwise noted. Assessment and Plan: Colitis involving descending and sigmoid colon- N.p.o. Flagyl 5 mg IV every 8 hours Given ceftriaxone 1 g IV in ED, will hold on any additional at this time Follow cultures and sensitivities Famotidine 20 mg IV every 12 hours Abnormal gallbladder on CT imaging- Gallbladder mildly distended, with common bile duct 8 mm Follow-up right upper quadrant ultrasound ordered If persistent symptoms and unclear etiology, will consider HIDA scan SDAT- Continue olanzapine and as needed Ativan Remaining orders and notations as noted PG Care Time/CCT Total # of Minutes Spent Total Time Spent with Patient: Total time spent is greater than 50% in coordination of care (as documented) at patient's floor/unit and/or counseling patient: Coding Level of Care Code INT OBSERVATION CARE 70M LVL 3 Diagnoses Colitis K52.9 Abnormal gall bladder diagnostic imaging R93.2 Alzheimer's dementia G30.9; F02.80 Nausea, vomiting, and diarrhea R11.2; R19.7 Hyperglycemia R73.9 Hypovolemia E86.1
[2021-12-17] MEDS ORDERED: ONDANSETRON INJ 2 MG/ML 2 ML VIAL IV PRN (21:35)
[2021-12-17] MEDS ORDERED: GLUCOSE 40% GEL 15 GM TUBE PO PRN (21:35)
[2021-12-17] MEDS ORDERED: GLUCOSE 10 TAB/TUBE PO PRN (21:35)
[2021-12-17] MEDS ORDERED: GLUCAGON FOR INJ 1 MG VIAL SQ PRN (21:35)
[2021-12-17] MEDS ORDERED: INSULIN ASPART PER UNIT SC SCH (21:35)
[2021-12-17] MEDS ORDERED: ACETAMINOPHEN 1000 MG/100 ML IV IV PRN (21:35)
[2021-12-17] MEDS ORDERED: DEXTROSE 50% 50 ML SYRINGE IV PRN (21:35)
[2021-12-17] MEDS ORDERED: CARBOHYDRATES FOR HYPOGLYCEMIA PO PRN (21:35)
[2021-12-17] MEDS: FAMOTIDINE 20 MG in SYRINGE 3 ML IV SCH (22:41)
[2021-12-17] MEDS: HEPARIN SOD 5,000 UNIT/0.5 ML VIAL SQ SCH (22:42)
[2021-12-18] MEDS: NSS + 20MEQ KCL 20 MEQ/1,000 ML BAG IV SCH ×2 (00:15→12:29)
[2021-12-18] MEDS: metroNIDAZOLE 500 MG/100 ML BAG IV SCH ×2 (00:15→06:37)
[2021-12-18] MEDS: OLANZapine 5 MG TABLET PO SCH ×6 (00:16→21:10)
[2021-12-18] MEDS ORDERED: Nursing to Pharmacy Communication SCH ×2 (06:45→14:30)
[2021-12-18] MEDS: INSULIN ASPART PER UNIT SC SCH ×2 (06:50→12:18)
[2021-12-18 07:18] LABS: Basophils # (auto) 0.02 K/uL (0-0.2); Basophils % (auto) 0.2 %; Eosinophils # (auto) 0.15 K/uL (0-0.50); Eosinophils % (auto) 1.5 %; Hemoglobin 11.2 g/dl (12.0-16.0); Immature Granulocytes # (auto) 0.02 K/uL (0.00-0.02); Immature Granulocytes % (auto) 0.2 %; Lymphocytes % (auto) 25.2 %; Mean Corpuscular Hemoglobin 29.9 pg (25.0-34.0); Mean Corpuscular Hgb Conc 32.9 g/dL (32.0-36.0); Mean Corpuscular Volume 90.7 fL (80.0-100.0); Mean Platelet Volume 10.2 fL (9.4-12.3); Monocytes # (auto) 0.84 K/uL (0.24-0.82); Monocytes % (auto) 8.1 %; Neutrophils # (auto) 6.69 K/uL (1.4-6.5); Neutrophils % (auto) 64.8 %; Platelet Count 148 K/uL (130-400); RDW Coefficient of Variation 13.2 % (11.5-14.5); RDW Standard Deviation 44.1 fL (36.4-46.3); Red Blood Count 3.75 M/uL (3.93-5.22); White Blood Count 10.32 K/ul (4.8-10.8)
[2021-12-18 08:14] LABS: Albumin Globulin Ratio 1.6 (0.9-2); Albumin Level 3.1 gm/dl (3.4-5.0); Bilirubin,Total 0.6 mg/dl (0.2-1.0); Calcium 8.3 mg/dl (8.5-10.1); Creatinine Clr Calc Pharmacy 41.5 ml/min; Est GFR (African American) 75.5 ml/min; Est GFR (Non-African American) 65.2 ml/min; Magnesium 1.8 mg/dl (1.7-2.4); Potassium 3.9 mmol/L (3.5-5.1); Total Protein 5.1 gm/dl (6.0-8.3)
[2021-12-18] MEDS: HEPARIN SOD 5,000 UNIT/0.5 ML VIAL SQ SCH ×2 (09:51→20:40)
[2021-12-18] MEDS: FAMOTIDINE 20 MG in SYRINGE 3 ML IV SCH ×2 (09:52→21:58)
--- NOTE | 2021-12-18 12:01 | Ultrasound Report ---
US abdomen limited CLINICAL HISTORY: eval gallbladder with distention and vomiting TECHNIQUE: Multiple real-time sonographic images of the right upper quadrant were obtained. Comparison: Comparison is made to CT abdomen pelvis 12/17/2021 FINDINGS: The liver is diffusely homogenous with normal contour and echogenicity. No focal mass lesions are see n. No intrahepatic ductal dilatation is seen. There is a 3.2 cm slightly mobile stone. The gallbl adder wall is thickened measuring up to 7 mm. A small amount of pericholecystic fluid is noted. A son ographic Brown's sign was not elicited by the thermal engineer. The common duct measures 0.9 cm in diam eter at the level of the hepatic artery. The distal pancreas is not visualized due to overlying lainey l gas. The visualized portions of the pancreas are unremarkable. The right kidney shows normal echogenicity, cortical thickness and renal contour. The right kidney sh ows no evidence of hydronephrosis or mass. No ascites or free fluid is seen in Rascon's pouch. IMPRESSION: Gallbladder wall thickening is seen with a large gallstone. Brown's sign is negative. Correlation wi th medication regimen recommended to exclude pain medication. Overall findings are equivocal for chol ecystitis. The thickening of the gallbladder may be secondary to previously noted colitis. If clinica l concern remains, nuclear medicine HIDA scan can be performed. ACT 112: Negative or not required by law. Electronically signed by: Kade Lovett M.D. 12/18/2021 11:59 AM
--- NOTE | 2021-12-18 12:24 | Electrocardiogram Report ---
Test Reason : Blood Pressure : / mmHG Vent. Rate : 113 BPM Atrial Rate : 113 BPM P-R Int : 192 ms QRS Dur : 078 ms QT Int : 326 ms P-R-T Axes : 060 -27 043 degrees QTc Int : 447 ms Poor data quality, interpretation may be adversely affected Sinus tachycardia Otherwise normal ECG No previous ECGs available Confirmed by Yoandy Herndon ([id number]) on 12/18/2021 12:23:58 PM Referred By: REFERRED SELF Confirmed By:Yoandy Herndon
--- NOTE | 2021-12-18 14:02 | Hospitalist Progress Note ---
Date of Service December 18, 2021 Assessment & Plan (1) Colitis: Plan: Patient presents with one day history of diarrhea and nausea/vomiting and diarrhea with fever reported at home. - non-specific colitis, unlikely ischemic given lack of pain. Stool PCR pending. - advance to clear liquids. continue IV fluids (2) Abnormal gall bladder diagnostic imaging: Plan: LFTs normal and no RUQ pain on exam. Do not suspect acute cholecystitis at this time. Will d/c antibiotics. (3) Alzheimer's dementia: Plan: Continue Olanzapine 5mg QID - she has PRN Ativan at home and rarely uses per - fall precautions - high (4) Nausea, vomiting, and diarrhea: Plan: Supportive care as above - Famotidine added - advance to clear liquids (5) Hyperglycemia: Plan: Hyperglycemia without diagnosis of diabetes - pt declining insulin - A1C pending (6) Hypovolemia: Plan: Continue IV fluids Plan VTE Prophylaxis - heparin 5000 units SQ BID Diet - clear liquids, T2DM Disposition - continued admission to med/surg Admission and Anticipated Discharge Date Admission Date: December 17, 2021 Subjective Patient pleasantly confused. Unable to contribute any history. Clarified Zyprexa dosing with her . No abdominal pain, nausea or vomiting. Review of Systems Review of Systems: Unobtainable due to cognitive status Physical Exam Constitutional: WD/WN, vitals as above ENMT: external ear and nose normal, oropharynx normal Respiratory: normal respiratory effort, lungs clear to auscultation Cardiovascular: RRR, no murmur, no edema Gastrointestinal (Abdomen): normal bowel sounds, soft, nontender, no hepatosplenomegaly Musculoskeletal: no cyanosis or clubbing, extremities motor strength 5/5 Skin: no rashes, warm and dry Neurologic: moves all extremities and awake; not confused Psychiatric: Orientation: alert; + not oriented x 3 Genitourinary: no CVA tenderness Results & Data Results & Data ([facility]) Vital Signs (Past 12 Hours) Vital Signs Temp Pulse Resp BP Pulse Ox O2 Del Method 12/18/21 07:27 36.6 C 86 16 121/70 95 12/18/21 06:35 36.8 C 79 16 149/67 H 97 Room Air PG Care Time/CCT Total # of Minutes Spent Total Time Spent with Patient: Total time spent is greater than 50% in coordination of care (as documented) at patient's floor/unit and/or counseling patient: Coding Level of Care Code 82008 Subseq Hosp Care Lvl 2 Diagnoses Colitis K52.9 Abnormal gall bladder diagnostic imaging R93.2 Alzheimer's dementia G30.9; F02.80 Nausea, vomiting, and diarrhea R11.2; R19.7 Hyperglycemia R73.9 Hypovolemia E86.1
[2021-12-18] MEDS ORDERED: OLANZapine 5 MG TABLET PO SCH (16:00)
[2021-12-18] MEDS ORDERED: INSULIN ASPART PER UNIT SC SCH (16:30)
[2021-12-18] MEDS ORDERED: cefTRIAXone SODIUM 1,000 MG in DEXTROSE 5% 50 ML IV SCH (19:00)
[2021-12-18] MEDS ORDERED: MELATONIN 3 MG TAB PO PRN (23:54)
[2021-12-19] MEDS: NSS + 20MEQ KCL 20 MEQ/1,000 ML BAG IV SCH (00:19)
[2021-12-19] MEDS: OLANZapine 5 MG TABLET PO SCH (06:50)
[2021-12-19 06:56] LABS: Basophils # (auto) 0.02 K/uL (0-0.2); Basophils % (auto) 0.3 %; Eosinophils # (auto) 0.17 K/uL (0-0.50); Eosinophils % (auto) 2.5 %; Hematocrit (blood only) 35.4 % (34.1-44.9); Hemoglobin 11.5 g/dl (12.0-16.0); Immature Granulocytes # (auto) 0.02 K/uL (0.00-0.02); Immature Granulocytes % (auto) 0.3 %; Lymphocytes # (auto) 1.82 K/uL (1.2-3.4); Lymphocytes % (auto) 27.3 %; Mean Corpuscular Hemoglobin 29.5 pg (25.0-34.0); Mean Corpuscular Hgb Conc 32.5 g/dL (32.0-36.0); Mean Corpuscular Volume 90.8 fL (80.0-100.0); Mean Platelet Volume 10.6 fL (9.4-12.3); Monocytes # (auto) 0.64 K/uL (0.24-0.82); Monocytes % (auto) 9.6 %; Platelet Count 175 K/uL (130-400); RDW Standard Deviation 43.4 fL (36.4-46.3); White Blood Count 6.67 K/ul (4.8-10.8)
[2021-12-19 07:22] LABS: Albumin Globulin Ratio 1.7 (0.9-2); Albumin Level 3.6 gm/dl (3.4-5.0); BUN Creatinine Ratio 15.5 (10-20); Bilirubin,Total 0.6 mg/dl (0.2-1.0); Calcium 8.6 mg/dl (8.5-10.1); Creatinine Clr Calc Pharmacy 41.5 ml/min; Est GFR (African American) 75.5 ml/min; Est GFR (Non-African American) 65.2 ml/min; Globulin 2.1 gm/dl (2.5-4.0); Magnesium 1.7 mg/dl (1.7-2.4); Potassium 3.9 mmol/L (3.5-5.1); Total Protein 5.7 gm/dl (6.0-8.3)
[2021-12-19 08:15] LABS: Estimated Average Glucose 194 mg/dl; Hemoglobin A1C 8.4 % (4.5-5.6)
[2021-12-19] MEDS: FAMOTIDINE 20 MG in SYRINGE 3 ML IV SCH (08:28)
[2021-12-19] MEDS: HEPARIN SOD 5,000 UNIT/0.5 ML VIAL SQ SCH (08:40)
--- NOTE | 2021-12-19 12:02 | Discharge Summary ---
Date of Service December 19, 2021 Admission HPI Per Admitting Provider 81 YOF with medical history of: Alzheimer's, osteopetrosis, GERD. Patient comes to the EMD today for complaints of abdominal pain, upper chest pain, and diarrhea. Son states that this started around 11 Pm last night and that she was weak and confused this morning and reports having multiple bouts of diarrhea overnight. She is able to talk and answer questions appropriately after some stimulating. She reports that she had some lower quadrant abdominal pain with this and that her upper chest discomfort has resolved. She is also accompanied by her , but he is out at the moment and son states that the is not having any symptoms. Son states that they called EMS and she had a fever when they got there. In the EMD the patient had routine labs performed to include UA, CT abd/pelvis, CXR completed. CT scan of abd/pelvis with bowel wall thickening and fat stranding, likely consistent with nonspecific colitis. She was given dose of Tylenol in the EMD. Patient will be admitted with abx follow cultures and WBC curve. She is non-toxic appearing and no other evidence of organ dysfunction. COVID test on admission is: NEGATIVE Principal Diagnosis Non-specific colitis Discharge Exam Constitutional WD/WN, vitals as above ENMT external ear and nose normal, oropharynx normal Respiratory normal respiratory effort, lungs clear to auscultation Cardiovascular RRR, no murmur, no edema Gastrointestinal (Abdomen) normal bowel sounds, soft, nontender, no hepatosplenomegaly Musculoskeletal no cyanosis or clubbing, extremities motor strength 5/5 Skin no rashes, warm and dry Neurologic moves all extremities and awake; not confused Psychiatric Orientation: alert; + not oriented x 3 Discharge Data Allergies Allergy/AdvReac Type Severity Reaction Status Date / Time amoxicillin Allergy Unknown blisters Verified 10/02/16 09:37 clavulanic acid Allergy Unknown blisters Verified 10/02/16 09:37 Consultations 12/17/21 20:52 ED Decision to Admit Stat Ordered Studies 12/17/21 17:01 CT Abd and Pelvis [CT abd pelvis wo con] Stat IMPRESSION: 1. Wkrs-kz-mishjmqm bowel wall thickening involving the majority of the descending colon and sigmoid colon with associated pericolonic fat stranding. This is consistent with a nonspecific colitis. 2. The common bile duct is at the upper limits of normal for age measuring 8 mm. The gallbladder is mildly distended which has slightly progressed. However, there is no gallbladder wall thickening. Recommend correlation with LFTs to exclude the possibility of an underlying obstructive process. 3. Colonic diverticulosis. No evidence for acute diverticulitis. 4. No evidence for bowel obstruction. 5. Moderate well-formed stool seen within the colon. 6. Small to moderate hiatus hernia. 12/18/21 US abdomen limited Routine IMPRESSION: Gallbladder wall thickening is seen with a large gallstone. Brown's sign is negative. Correlation with medication regimen recommended to exclude pain medication. Overall findings are equivocal for cholecystitis. The thickening of the gallbladder may be secondary to previously noted colitis. If clinical concern remains, nuclear medicine HIDA scan can be performed. Hospital Course (1) Colitis: Divya Anglin is an 82 year old female admitted to [facility] from December 17 - 2021 due to abdominal pain and diarrhea. She was diagnosed with a non-specific colitis which now appears resolved. No further diarrhea and eating and drinking well on discharge. On discussion with her she appears to be back to her baseline self. Recommend taking Imodium as needed for ongoing diarrhea. There was some concern for acute cholecystitis on CT and ultrasound but given normal LFTs and no pain on exam this appears to be related to her colitis. She was treated with 24 hours of antibiotics because of this concern but they were subsequently discontinued. She was also incidentally diagnosed with type 2 diabetes mellitus with HbA1C 8.4 and glucosuria. On discussion with her he reports normal glucose levels at home therefore recommended taking morning fasting glucose levels and follow up with their PCP following this. No changes to her regular medications were made. (2) Abnormal gall bladder diagnostic imaging: (3) Alzheimer's dementia: (4) Nausea, vomiting, and diarrhea: (5) Hyperglycemia: (6) Hypovolemia: Total Time Total Time Spent Total Time Spent (In Minutes): 40 Discharge Plan Discharge Items Patient Disposition: Home - Self-Care Reason For Visit: COLITIS Discharge Diagnosis: Non-specific colitis Activity: Resume your previous activity Non-emergency contact: Primary Care Provider Call non-emergency contact if: you have any medication questions and your symptoms worsen Follow-up/Referrals: Otto Ko DO [Primary Care Provider] - 12/26/21 9:30 am Diet: Carb Consistent or DM2 Addtl Attending Provider Instructions: You were admitted to [facility] from December 17 - 2021 due to abdominal pain and diarrhea. You were diagnosed with a non-specific colitis which now appears resolved. Recommend taking Imodium as needed for ongoing diarrhea. You were also diagnosed with type 2 diabetes mellitus with HbA1C 8.4. Please follow up with your primary care physician for ongoing management for this. No changes to your usual medications were made. Pending Studies at Discharge: No Stand-Alone Forms: My [facility], Smoking Cessation Medications and DC Order Prescriptions: Continued CALCIUM CARBONATE-CHOLECALCIFE (CALTRATE 600+D) 1 TAB tablet 1 tab PO DAILY Qty: 0 Fish Oil ([place]-3) 1 EA capsule 1 cap PO DAILY Qty: 0 VITAMIN E 400 UNIT tablet 400 unit PO DAILY Qty: 0 CINNAMON 500 MG capsule 500 mg PO DAILY Qty: 0 ASPIRIN (ASPIRIN EC) 81 MG tablet 81 mg PO DAILY Qty: 0 Multivitamin tablet 1 tab PO DAILY Qty: 0 olanzapine [Zyprexa] 5 mg Tablet 5 mg PO QID metoprolol succinate 25 mg tablet extended release 24 hr 25 mg PO DAILY Discharge Orders: Discharge Order (Routine); Ordered 12/19/21 Ordered By: Wes Reeves/Other Patient Handouts: Type 2 Diabetes Admission Data Admit Date/Time: 12/17/21 19:52 Attending Provider: Wes Sarmiento Admit Provider: Watson Cohen Primary Care Provider: Otto Ko Other Providers: Watson Cohen Other Interventions: Discharge Summary Assessment (RN) Last Done: 12/19/21 12:23 Coding Level of Care Code D/C DAY MANAGEMENT >30 MINS Diagnoses Colitis K52.9 Abnormal gall bladder diagnostic imaging R93.2 Alzheimer's dementia G30.9; F02.80 Nausea, vomiting, and diarrhea R11.2; R19.7 Hyperglycemia R73.9 Hypovolemia E86.1
== END 2021-12-19 13:10 | disposition home or self-care (01) | DRG 392 ==
LOC: ED 15:41 → SUATTDRO 19:52 → 3W 19:52

== ENCOUNTER 2021-12-28 05:02 | Inpatient (IN) ==
[2021-12-28] MEDS ORDERED: SODIUM CHLORIDE 0.9% 1000ML 1,000 ML IV SCH (05:15)
[2021-12-28] MEDS ORDERED: SODIUM CHLORIDE 0.9% 250 ML IV ONE (05:20)
[2021-12-28] MEDS ORDERED: ACETAMINOPHEN 1,000 MG/100 ML VIAL IV STA (05:20)
--- NOTE | 2021-12-28 05:25 | Emergency Department Note ---
Impression & Plan COVID-19, Generalized weakness, DVT (deep venous thrombosis), Dehydration ED Provider Note CHIEF COMPLAINT: COVID-positive, weakness HISTORY OF PRESENT ILLNESS: This 81 yo female patient presents to the emergency department with complaints of weakness, dehydration, bleeding mouth from home. Patient was evaluated in the emergency department 36 hours ago and noted to be COVID-positive. Incidentally on CT imaging she was found to have a DVT and placed on Lovenox as she was felt to be too high risk for Eliquis. Patient's family wants to take her home. She does have a history of dementia. She was placed on Paxlovid for COVID. REVIEW OF SYSTEMS: A review of systems was performed with positives and pertinent negatives listed in the history of present illness. 10 systems were reviewed and are otherwise negative. ALLERGIES: see below MEDICATIONS: see below PMH: see below SOCIAL HISTORY: see below DDx: COVID, dehydration, metabolic abnormality, hypo/hyperglycemia, electrolyte disturbance, anemia, hypoxia, cardiac sources, intracerebral event, toxicologic, neurologic, as well as other pathologies. PHYSICAL EXAM: Vital signs reviewed. Febrile and hypertensive. General: Well-appearing 81 yo female, in no significant distress. HEENT: No scleral icterus, PERRLA, neck supple. Dry MM, no active bleeding. Cardiovascular: Regular rate and rhythm, no extra sounds. Pulmonary: Clear to auscultation bilaterally, normal work of breathing. Abdomen: Soft, nontender, nondistended, positive bowel sounds. Musculoskeletal: Atraumatic, no peripheral edema. Neurologic: Patient awake, confused, pleasant. Follows commands. Skin: Warm, dry, no rash EMERGENCY DEPARTMENT COURSE/MDM: This pt was evaluated and appears to be in no distress. IV access was obtained and lab work was drawn. Pt was hydrated with IV NSS. CXR reveals no focal infiltrate. Laboratory work is fairly reassuring, urinalysis reveals elevated specific gravity however BUN/creatinine are not significantly elevated. Patient is mildly leukopenic, likely secondary to her COVID-positive status. Given her DVT, recent COVID diagnosis and Lovenox therapy with Paxil would, the patient situation is likely multilayered. Hospitalist service has been consulted for admission and further management. RADS: see below MONITORING: An order for cardiac monitoring was placed and the patient is noted to be in a NSR at 90 beats per minute. EKG: NSR at 91 bpm, QTc [address] changes. When compared to Dec 26, 2021, no significant changes. DISPOSITION: Admit. Past Med/Surg History Medical History Alzheimer's dementia No pertinent family history No pertinent past medical history Surgical History No pertinent past surgical history Family History Other Family history non-contributory Social History Smoking Status: Never smoker Hx Alcohol Use: No Hx Substance Use: No Preferred Language: Spanish Pancake Professional Required: No Beliefs That Will Affect Care: None Current Living Situation: Spouse Feels Safe at Home: Yes Assistive Devices: Glasses Allergies Allergies Allergy/AdvReac Type Severity Reaction Status Date / Time amoxicillin Allergy Unknown blisters Verified 10/02/16 09:37 clavulanic acid Allergy Unknown blisters Verified 10/02/16 09:37 Home Meds Home Medications Medication Instructions Recorded Confirmed CALCIUM CARBONATE-CHOLECALCIFE 1 tab PO DAILY ##0 06/12/14 (CALTRATE 600+D) Fish Oil (Hudson-3) 1 cap PO DAILY #0 caps 06/12/14 ASPIRIN (ASPIRIN EC) 81 mg PO DAILY ##0 10/02/16 CINNAMON 500 mg PO DAILY ##0 10/02/16 Multivitamin 1 tab PO DAILY #0 tabs 10/02/16 VITAMIN E 400 unit PO DAILY ##0 10/02/16 metoprolol succinate 25 mg 25 mg PO DAILY 12/19/21 12/19/21 tablet,extended release 24 hr olanzapine 5 mg tablet (Zyprexa) 5 mg PO QID 12/19/21 12/19/21 Previous Rx's Medication Instructions Recorded enoxaparin 80 mg/0.8 mL 80 mg (0.8 mL) subcut DAILY #8 mL 12/26/21 subcutaneous syringe (Lovenox) nirmatrelvir 300 mg (150 mg See Rx Instructions PO .COMPLEX 12/26/21 x2)-ritonavir 100 mg tablet,dose #30 tabs pack(EUA) (Paxlovid) Results & Data (ED) Vital Signs Vital Signs - 24 hr 12/28/21 05:03 12/28/21 05:11 12/28/21 05:03 Temperature 38.3 C H Temperature Source Oral Pulse Rate 90 Pulse Rate from SpO2 Sensor Respiratory Rate 20 Respiratory Effort / Characteristics Non-Labored Non-Labored Respiratory Depth Normal Normal Blood Pressure 168/107 H Blood Pressure Mean 127 Pulse Oximetry 97 97 Oxygen Delivery Method Room Air Room Air Sepsis Recent Fever Within 48 Hours Yes Sepsis New/Unexplained Change in Mental Status No Sepsis Action Taken by Nursing No Action Required 12/28/21 05:14 12/28/21 05:20 12/28/21 05:30 Temperature Temperature Source Pulse Rate 89 88 Pulse Rate from SpO2 Sensor 91 H 88 Respiratory Rate 17 22 Respiratory Effort / Characteristics Respiratory Depth Blood Pressure 158/84 H Blood Pressure Mean 108 Pulse Oximetry 99 97 Oxygen Delivery Method Sepsis Recent Fever Within 48 Hours Sepsis New/Unexplained Change in Mental Status Sepsis Action Taken by Nursing 12/28/21 05:30 12/28/21 05:40 12/28/21 05:50 Temperature Temperature Source Pulse Rate 91 H 95 H 91 H Pulse Rate from SpO2 Sensor 91 H 94 H 91 H Respiratory Rate 23 25 H 19 Respiratory Effort / Characteristics Respiratory Depth Blood Pressure Blood Pressure Mean Pulse Oximetry 98 97 96 Oxygen Delivery Method Sepsis Recent Fever Within 48 Hours Sepsis New/Unexplained Change in Mental Status Sepsis Action Taken by Nursing 12/28/21 06:14 12/28/21 06:14 Temperature Temperature Source Pulse Rate 87 Pulse Rate from SpO2 Sensor 87 Respiratory Rate 22 Respiratory Effort / Characteristics Respiratory Depth Blood Pressure 144/82 H Blood Pressure Mean 102 Pulse Oximetry 96 Oxygen Delivery Method Sepsis Recent Fever Within 48 Hours Sepsis New/Unexplained Change in Mental Status Sepsis Action Taken by Detention Medications Current Medication List: was personally reviewed by me Laboratory Data Attestation: I reviewed the patient's lab results. Result diagrams: 12/28/21 05:30 12/28/21 05:30 Lab Results 12/28/21 12/28/21 12/28/21 Range/Units 05:30 05:30 05:30 WBC 4.43 L (4.8-10.8) K/ul RBC 3.89 L (3.93-5.22) M/uL Hgb 11.5 L (12.0-16.0) g/dl Hct 35.2 (34.1-44.9) % MCV 90.5 (80.0-100.0) fL MCH 29.6 (25.0-34.0) pg MCHC 32.7 (32.0-36.0) g/dL RDW Std Deviation 44.6 (36.4-46.3) fL RDW Coeff of Dash 13.4 (11.5-14.5) % Plt Count 183 (130-400) K/uL MPV 10.0 (9.4-12.3) fL Immature Gran % (Auto) 0.2 % Neut % (Auto) 66.0 % Lymph % (Auto) 21.4 % Freeborn % (Auto) 12.2 % Eos % (Auto) 0.0 % Baso % (Auto) 0.2 % Neut # (Auto) 2.92 (1.4-6.5) K/uL Lymph # (Auto) 0.95 L (1.2-3.4) K/uL Freeborn # (Auto) 0.54 (0.24-0.82) K/uL Eos # (Auto) 0.00 (0-0.50) K/uL Baso # (Auto) 0.01 (0-0.2) K/uL Immature Gran # (Auto) 0.01 (0.00-0.02) K/uL PT 11.9 (9.0-12.0) Seconds INR 1.1 (0.9-1.1) Sodium 140 (136-145) mmol/L Potassium 3.6 (3.5-5.1) mmol/L Chloride 107 (98-107) mmol/L Carbon Dioxide 25 (21-32) mmol/L Anion Gap 8 (3-11) BUN 20 (6-23) mg/dl Creatinine 0.92 (0.6-1.2) mg/dl Est Cr Clr Drug Dosing Not Reportable Est GFR ( Amer) 67.7 ml/min Est GFR (Non-Af Amer) 58.4 ml/min BUN/Creatinine Ratio 21.7 H (10-20) Glucose 117 H (70-99(Fasting)) mg/dl Calcium 8.2 L (8.5-10.1) mg/dl Magnesium 1.8 (1.7-2.4) mg/dl Total Bilirubin 0.5 (0.2-1.0) mg/dl AST 60 H (13-39) U/L ALT 46 (7-52) U/L Alkaline Phosphatase 59 (34-104) U/L Total Protein 6.0 (6.0-8.3) gm/dl Albumin 3.5 (3.4-5.0) gm/dl Globulin 2.5 (2.5-4.0) gm/dl Albumin/Globulin Ratio 1.4 (0.9-2) TSH (0.300-4.500) uIu/ml Urine Color Urine Appearance (Clear) Urine pH (4.5-7.5) Ur Specific Schwertner (1.000-1.030) Urine Protein (Negative) Urine Glucose (UA) (Negative) Urine Ketones (Negative) Urine Blood (Negative) Urine Nitrite (Negative) Urine Bilirubin (Negative) Urine Urobilinogen (Negative) Ur Leukocyte Esterase (Negative) Urine WBC (Auto) (0-5) /hpf Urine RBC (Auto) (0-4) /hpf U Hyaline Cast (Auto) (0-5) /lpf U Epithel Cells (Auto) (0-5) /lpf Urine Bacteria (Auto) (Negative) SARS-CoV-2, RNA, NAAT (NEGATIVE) 12/28/21 12/28/21 12/28/21 Range/Units 05:30 05:30 05:42 WBC (4.8-10.8) K/ul RBC (3.93-5.22) M/uL Hgb (12.0-16.0) g/dl Hct (34.1-44.9) % MCV (80.0-100.0) fL MCH (25.0-34.0) pg MCHC (32.0-36.0) g/dL RDW Std Deviation (36.4-46.3) fL RDW Coeff of Dash (11.5-14.5) % Plt Count (130-400) K/uL MPV (9.4-12.3) fL Immature Gran % (Auto) % Neut % (Auto) % Lymph % (Auto) % Freeborn % (Auto) % Eos % (Auto) % Baso % (Auto) % Neut # (Auto) (1.4-6.5) K/uL Lymph # (Auto) (1.2-3.4) K/uL Freeborn # (Auto) (0.24-0.82) K/uL Eos # (Auto) (0-0.50) K/uL Baso # (Auto) (0-0.2) K/uL Immature Gran # (Auto) (0.00-0.02) K/uL PT (9.0-12.0) Seconds INR (0.9-1.1) Sodium (136-145) mmol/L Potassium (3.5-5.1) mmol/L Chloride (98-107) mmol/L Carbon Dioxide (21-32) mmol/L Anion Gap (3-11) BUN (6-23) mg/dl Creatinine (0.6-1.2) mg/dl Est Cr Clr Drug Dosing Est GFR ( Amer) ml/min Est GFR (Non-Af Amer) ml/min BUN/Creatinine Ratio (10-20) Glucose (70-99(Fasting)) mg/dl Calcium (8.5-10.1) mg/dl Magnesium (1.7-2.4) mg/dl Total Bilirubin (0.2-1.0) mg/dl AST (13-39) U/L ALT (7-52) U/L Alkaline Phosphatase (34-104) U/L Total Protein (6.0-8.3) gm/dl Albumin (3.4-5.0) gm/dl Globulin (2.5-4.0) gm/dl Albumin/Globulin Ratio (0.9-2) TSH 1.362 (0.300-4.500) uIu/ml Urine Color Dark Yellow Urine Appearance Clear (Clear) Urine pH 5.5 (4.5-7.5) Ur Specific Schwertner 1.033 H (1.000-1.030) Urine Protein 1+ H (Negative) Urine Glucose (UA) 1+ H (Negative) Urine Ketones Trace H (Negative) Urine Blood Trace H (Negative) Urine Nitrite Negative (Negative) Urine Bilirubin Negative (Negative) Urine Urobilinogen Negative (Negative) Ur Leukocyte Esterase Negative (Negative) Urine WBC (Auto) 1-5 (0-5) /hpf Urine RBC (Auto) 5-10 H (0-4) /hpf U Hyaline Cast (Auto) 5-10 H (0-5) /lpf U Epithel Cells (Auto) 10-20 H (0-5) /lpf Urine Bacteria (Auto) Negative (Negative) SARS-CoV-2, RNA, NAAT POSITIVE A* (NEGATIVE) Administered Medications Sodium Chloride (Nss 1000ml) 1,000 mls @ 125 mls/hr IV .Q8H MANJEET Stop: 12/28/21 13:14 Last Admin: 12/28/21 05:53 Dose: 125 mls/hr Documented By: SABINO Discontinued Medications Acetaminophen (Ofirmev) 1,000 mg in 100 mls @ 400 mls/hr IV NOW STA Stop: 12/28/21 05:34 Last Infusion: 12/28/21 06:30 Dose: 0 mls/hr Documented By: Admin: 12/28/21 05:53 Dose: 400 mls/hr Documented By: SABINO Sodium Chloride (Nss) 250 mls @ 999 mls/hr IV .Q16M ONE Stop: 12/28/21 05:35 Last Infusion: 12/28/21 06:31 Dose: 0 mls/hr Documented By: Admin: 12/28/21 05:53 Dose: 999 mls/hr Documented By: SABINO Metoprolol Tartrate (Metoprolol Tartrate 1 Mg/Ml Vial) 5 mg IV NOW STA Stop: 12/28/21 06:19 Last Admin: 12/28/21 06:59 Dose: Not Given Documented By: Imaging Data Radiologist's Impression: Head CT 12/28/21 05:12 CT OF THE HEAD WITHOUT CONTRAST CLINICAL HISTORY: weakness, ambulatory diff, COVID, anticoag COMPARISON STUDY: Head CT December 26, 2021. CT DOSE: 1228.24 mGy.cm TECHNIQUE: Helical axial images of the head were obtained without IV contrast. Automated exposure control was utilized for the study. A dose lowering technique was utilized adhering to the principles of ALARA. FINDINGS: No acute intracranial hemorrhage, midline shift or mass effect is present. White matter hypodensities are unchanged and favor small vessel disease. The ventricular system is unremarkable. The basal cisterns are patent. No extra-axial collections are present. There are no findings to suggest acute dural sinus thrombosis or acute territorial infarct. No significant calvarial abnormalities are present. There is mild sinus mucosal thickening. IMPRESSION: No acute intracranial findings. No change in appearance of the brain. ACT 112: Negative or not required by law. Electronically signed by: Leonidas Sheffield M.D. 12/28/2021 6:29 AM Blood Pressure Blood Pressure Findings: Elevated blood pressure Blood Pressure Disposition: further management by hospitalist Discharge Plan Visit Data Chief Complaint: Dehydration Stated Complaint: Covid Positive, Dehydrated ED Provider: Shyann Leigh Discharge Problem: COVID-19, Generalized weakness, DVT (deep venous thrombosis), Dehydration Forms Stand Alone Forms: [facility] [employer] Prescriptions Prescriptions: No Action CALCIUM CARBONATE-CHOLECALCIFE (CALTRATE 600+D) 1 TAB tablet 1 tab PO DAILY Qty: 0 Fish Oil (Hudson-3) 1 EA capsule 1 cap PO DAILY Qty: 0 VITAMIN E 400 UNIT tablet 400 unit PO DAILY Qty: 0 CINNAMON 500 MG capsule 500 mg PO DAILY Qty: 0 ASPIRIN (ASPIRIN EC) 81 MG tablet 81 mg PO DAILY Qty: 0 Multivitamin tablet 1 tab PO DAILY Qty: 0 olanzapine [Zyprexa] 5 mg Tablet 5 mg PO QID metoprolol succinate 25 mg tablet extended release 24 hr 25 mg PO DAILY enoxaparin [Lovenox] 80 mg/0.8 mL syringe 80 mg subcut DAILY Qty: 8 1RF Paxlovid (EUA) 300 mg (150 mg x 2)-100 mg tablet See Rx Instructions .ROUTE .COMPLEX Qty: 30 0RF Rx Instructions: take TWO 150 mg tablets of nirmatrelvir with ONE 100 mg tablet of ritonavir twice daily for 5 days Referrals Referrals: Otto Ko DO [Primary Care Provider] -
[2021-12-28] MEDS ORDERED: METOPROLOL TARTRATE 1 MG/ML VIAL IV STA (06:18)
[2021-12-28 06:25] LABS: Basophils # (auto) 0.01 K/uL (0-0.2); Basophils % (auto) 0.2 %; Hematocrit (blood only) 35.2 % (34.1-44.9); Hemoglobin 11.5 g/dl (12.0-16.0); Immature Granulocytes # (auto) 0.01 K/uL (0.00-0.02); Immature Granulocytes % (auto) 0.2 %; Lymphocytes # (auto) 0.95 K/uL (1.2-3.4); Lymphocytes % (auto) 21.4 %; Mean Corpuscular Hemoglobin 29.6 pg (25.0-34.0); Mean Corpuscular Hgb Conc 32.7 g/dL (32.0-36.0); Mean Corpuscular Volume 90.5 fL (80.0-100.0); Monocytes # (auto) 0.54 K/uL (0.24-0.82); Monocytes % (auto) 12.2 %; Neutrophils # (auto) 2.92 K/uL (1.4-6.5); Platelet Count 183 K/uL (130-400); RDW Coefficient of Variation 13.4 % (11.5-14.5); RDW Standard Deviation 44.6 fL (36.4-46.3); Red Blood Count 3.89 M/uL (3.93-5.22); White Blood Count 4.43 K/ul (4.8-10.8)
[2021-12-28 06:27] LABS: Alanine Aminotransferase 46 U/L (7-52); Albumin Globulin Ratio 1.4 (0.9-2); Albumin Level 3.5 gm/dl (3.4-5.0); Alkaline Phosphatase 59 U/L (34-104); Anion Gap 8 (3-11); Aspartate Aminotransferase 60 U/L (13-39); BUN Creatinine Ratio 21.7 (10-20); Bilirubin,Total 0.5 mg/dl (0.2-1.0); Blood Urea Nitrogen 20 mg/dl (6-23); Calcium 8.2 mg/dl (8.5-10.1); Carbon Dioxide 25 mmol/L (21-32); Chloride 107 mmol/L (98-107); Est GFR (African American) 67.7 ml/min; Est GFR (Non-African American) 58.4 ml/min; Globulin 2.5 gm/dl (2.5-4.0); Glucose 117 mg/dl (70-99(Fasting)); Magnesium 1.8 mg/dl (1.7-2.4); Potassium 3.6 mmol/L (3.5-5.1); Sodium 140 mmol/L (136-145)
[2021-12-28 06:30] LABS: INR 1.1 (0.9-1.1); Prothrombin Time 11.9 Seconds (9.0-12.0)
--- NOTE | 2021-12-28 06:32 | CT Scan Report ---
CT OF THE HEAD WITHOUT CONTRAST CLINICAL HISTORY: weakness, ambulatory diff, COVID, anticoag COMPARISON STUDY: Head CT December 26, 2021. CT DOSE: 1228.24 mGy.cm TECHNIQUE: Helical axial images of the head were obtained without IV contrast. Automated exposure con trol was utilized for the study. A dose lowering technique was utilized adhering to the principles o f ALARA. FINDINGS: No acute intracranial hemorrhage, midline shift or mass effect is present. White matter hyp odensities are unchanged and favor small vessel disease. The ventricular system is unremarkable. The basal cisterns are patent. No extra-axial collections are present. There are no findings to suggest a cute dural sinus thrombosis or acute territorial infarct. No significant calvarial abnormalities are present. There is mild sinus mucosal thickening. IMPRESSION: No acute intracranial findings. No change in appearance of the brain. ACT 112: Negative or not required by law. Electronically signed by: Leonidas Sheffield M.D. 12/28/2021 6:29 AM
[2021-12-28 06:54] LABS: Appearance Urine Clear (Clear); Bacteria Urine Automated Negative (Negative); Bilirubin Urine Negative (Negative); Blood Urine Trace (Negative); Color Urine Dark Yellow; Glucose Urine UA 1+ (Negative); Ketones Urine Trace (Negative); Leukocyte Esterase Urine Negative (Negative); Nitrite Urine Negative (Negative); Protein Urine 1+ (Negative); Specific Gravity Urine 1.033 (1.000-1.030); Urobilinogen Urine Negative (Negative); pH Urine 5.5 (4.5-7.5)
[2021-12-28] MEDS ORDERED: METOPROLOL SUCC 25MG EXT REL TAB PO STA (06:57)
--- NOTE | 2021-12-28 07:08 | XRay Report ---
XR chest 1V portable CLINICAL HISTORY: weakness TECHNIQUE: Single frontal radiograph of the chest was obtained. Comparison: Comparison is made to chest radiograph 12/26/2021 FINDINGS: No lines and tubes are seen. The cardiomediastinal silhouette is normal. Reticular interstitial opaci ties are seen. No evidence of pleural effusion or pneumothorax. IMPRESSION: Interstitial opacities, similar to prior exam, without evidence of airspace opacity. ACT 112: Negative or not required by law. Electronically signed by: Kade Lovett M.D. 12/28/2021 7:07 AM
--- NOTE | 2021-12-28 07:37 | History & Physical Report ---
Date of Service December 28, 2021 Assessment & Plan (1) COVID-19: Plan: has mild reticular opacities on cxr today. uncertain if that is mild COVID pneumonia or a chronic finding. per has not had any respiratory symptoms but is febrile, etc. plan for CTA chest - r/o pneumonia and r/o PE in light of #2. symptomatic care. IV fluids. serial labs. strongly consider IV Remdesivir. low threshold for IV dexamethasone if CTA chest shows definitive pneumonia and if O2 sats meet criteria. stop the Paxlovid since she has had disease progression over the last 2-3 days and is now being hospitalized. (2) Iliac DVT (deep venous thrombosis): Plan: seen on CT abd/pelvis on 12/26. continue lovenox 1mg/kg BID first dose tonight. CTA chest r/o PE. Doppler RLE to assess extent of DVT in the leg itself. I assume that her DVT is COVID-related from hypercoagulable state. (3) Type 2 diabetes mellitus: Plan: new diagnosis made during prior hospital stay earlier this month with HbA1C >8%. DM diet. Check BSGs ac/hs. May need basal-bolus insulin while here. (4) Colitis: Plan: as seen on CT earlier this month. radiographically resolved on 12/26 CT and clinically resolved. ischemic? infectious? either way is resolved. (5) Alzheimer's dementia: Plan: advanced. anticipate acute delirium while here in setting of her illness. cont home olanzapine QID. unusual dosing regimen but confirms this is how she takes it at home. if she cannot take the olanzapine by mouth then switch to IM formulation. (6) Rhabdomyolysis due to COVID-19: Plan: CPK 1911. Had a reported fall on 12/26 but CPK then was wnl. Rhabdomyolysis likely due to COVID infection itself. Isotonic fluids, repeat CPK in am. Mild AST elevation likely from the elevated CPK. (7) Chronic renal failure, stage 3b: Plan: baseline CrCl 30-45 repeat BMP in am for stability Plan updated by phone at time of admission she will need PT/OT consults while here History of Present Illness Chief Complaint: weakness Primary Care Provider: Otto Ko, 81yo female with advanced dementia - hospitalized at [facility] from 12/17/21 to 12/19/21 for colitis - presents from home due to ongoing weakness, fatigue, poor oral intake, and simply not feeling well. Was seen in the ER on 12/26/21 for a fall. During that ER visit she tested positive for COVID-19 (was febrile in the ER at time of evaluation) and underwent CT a/p showing a right iliac vein and common femoral vein DVT. Paxlovid was advised along with lovenox 1.5mg/kg/day for the DVT. She was discharged home with her . The patient herself was unable to give any history during my bedside visit. After finishing with an examination I called the who reported the following - 12/27/21 - patient was "weak, tired, and slept all day." Only took a few bites of pudding and a few ounces of gatorade. She "couldn't walk" because of the weakness. did not note any cough, dyspnea, chest pain, abd pain, vomiting or diarrhea. He isn't sure if she had any fever yesterday. 12/27/21 - received a lovenox injection by her son in the evening hours. Also took Paxlovid yesterday only. Has not had any lovenox or Paxlovid today. With respect to dementia - knows her and his name. At baseline she walks and feeds herself. She does have tendencies towards agitation hence the zyprexa 4 times daily. reports he is COVID+ and has been sick for about 4 days with severe cough/congestion. Allergies Allergy/AdvReac Type Severity Reaction Status Date / Time amoxicillin Allergy Unknown blisters Verified 12/28/21 18:38 clavulanic acid Allergy Unknown blisters Verified 12/28/21 18:38 Home Medications Medication Instructions Recorded Confirmed Type metoprolol succinate 25 mg 25 mg PO DAILY 12/19/21 12/28/21 History tablet,extended release 24 hr olanzapine 5 mg tablet (Zyprexa) 5 mg PO QID 12/19/21 12/28/21 History enoxaparin 80 mg/0.8 mL 80 mg (0.8 mL) subcut DAILY #8 mL 12/26/21 12/28/21 Rx subcutaneous syringe (Lovenox) nirmatrelvir 300 mg (150 mg See Rx Instructions PO .COMPLEX 12/26/21 12/28/21 Rx x2)-ritonavir 100 mg tablet,dose #30 tabs pack(EUA) (Paxlovid) aspirin 81 mg tablet,delayed 81 mg PO DAILY 12/28/21 12/28/21 History release calcium carbonate 500 mg-vitamin 1 tab PO DAILY 12/28/21 12/28/21 History D3 10 mcg (400 unit) tablet lorazepam 0.5 mg tablet 0.5 mg PO DAILY PRN Anxiety 12/28/21 12/28/21 History multivitamin 1 tab PO DAILY 12/28/21 12/28/21 History omega 4-lhx-ssc-fish oil 1,000 mg 1 cap PO DAILY 12/28/21 12/28/21 History (120 mg-180 mg) capsule (Fish Oil) trazodone 50 mg tablet 50 mg PO HS PRN Sleep 12/28/21 12/28/21 History vitamin E 268 mg (400 unit) capsule 268 mg PO DAILY 12/28/21 12/28/21 History Past Med/Surg History Medical History (Updated 12/28/21 @ 21:51 by Wes Carpio) Alzheimer's dementia Colitis COVID-19 Iliac DVT (deep venous thrombosis) Type 2 diabetes mellitus Surgical History (Updated 12/28/21 @ 08:54 by Wes Carpio) H/O umbilical hernia repair Family History Father Dementia Mother Cancer Social History (Updated 12/28/21 @ 08:55 by Wes Carpio) Smoking Status: Former smoker Tobacco Type: Cigarettes Smoking End Date: 1950s; smoked briefly at that time; Hx Alcohol Use: No Hx Substance Use: No Preferred Language: Turkish Engineering Project Manager Required: No Beliefs That Will Affect Care: None marital status: Current Living Situation: Spouse Current Living Situation Comment: lives in [place] with current occupation: was a beautician How many Children do You have: 4 How many Children do You have Comment: 1 child is Feels Safe at Home: Yes Assistive Devices: Glasses Review of Systems Review of Systems: Unobtainable due to cognitive status Physical Exam Physical Exam: gen - thin, looks dehydrated, very confused, NAD eyes - PERRL HENT/mouth - MM severely dry neck - no JVD, no masses lymph - no cervical lymph nodes palpated heart - RRR, s1 s2, no murmur lungs - CTA b/l except for mild rales L base abd - soft NT ND BS+; no HSM skin - bruises on abdominal wall; fingernail clubbing ext - right thigh is larger than left thigh, trace edema right ankle, none on left; pulses 2+ b/l neuro - moves all 4 limbs symmetrically; muscle atrophy of arms/legs psych - a/o to person only Results & Data Results & Data ([facility]) Vital Signs (Past 12 Hours) Vital Signs Temp Pulse Pulse Resp BP BP Pulse Ox 12/28/21 07:10 82 18 134/70 98 12/28/21 06:14 144/82 H 12/28/21 06:14 87 22 96 12/28/21 05:50 91 H 19 96 12/28/21 05:40 95 H 25 H 97 12/28/21 05:30 91 H 23 98 12/28/21 05:30 158/84 H 12/28/21 05:20 88 22 97 12/28/21 05:14 89 17 99 12/28/21 05:11 97 12/28/21 05:03 38.3 C H 90 20 168/107 H 97 O2 Del Method O2 Flow Rate 12/28/21 07:10 Nasal Cannula 2 12/28/21 06:14 12/28/21 06:14 12/28/21 05:50 12/28/21 05:40 12/28/21 05:30 12/28/21 05:30 12/28/21 05:20 12/28/21 05:14 12/28/21 05:11 Room Air 12/28/21 05:03 Room Air Laboratory Results Laboratory Results - last 24 hr 12/28/21 12/28/21 12/28/21 05:30 05:30 05:30 WBC 4.43 L RBC 3.89 L Hgb 11.5 L Hct 35.2 MCV 90.5 MCH 29.6 MCHC 32.7 RDW Std Deviation 44.6 RDW Coeff of Dash 13.4 Plt Count 183 MPV 10.0 Immature Gran % (Auto) 0.2 Neut % (Auto) 66.0 Lymph % (Auto) 21.4 Meigs % (Auto) 12.2 Eos % (Auto) 0.0 Baso % (Auto) 0.2 Neut # (Auto) 2.92 Lymph # (Auto) 0.95 L Meigs # (Auto) 0.54 Eos # (Auto) 0.00 Baso # (Auto) 0.01 Immature Gran # (Auto) 0.01 PT 11.9 INR 1.1 Sodium 140 Potassium 3.6 Chloride 107 Carbon Dioxide 25 Anion Gap 8 BUN 20 Creatinine 0.92 Est Cr Clr Drug Dosing Not Reportable Est GFR ( Amer) 67.7 Est GFR (Non-Af Amer) 58.4 BUN/Creatinine Ratio 21.7 H Glucose 117 H Calcium 8.2 L Magnesium 1.8 Total Bilirubin 0.5 AST 60 H ALT 46 Alkaline Phosphatase 59 Total Creatine Kinase Total Protein 6.0 Albumin 3.5 Globulin 2.5 Albumin/Globulin Ratio 1.4 TSH Urine Color Urine Appearance Urine pH Ur Specific Palmer Urine Protein Urine Glucose (UA) Urine Ketones Urine Blood Urine Nitrite Urine Bilirubin Urine Urobilinogen Ur Leukocyte Esterase Urine WBC (Auto) Urine RBC (Auto) U Hyaline Cast (Auto) U Epithel Cells (Auto) Urine Bacteria (Auto) SARS-CoV-2, RNA, NAAT 12/28/21 12/28/21 12/28/21 05:30 05:30 05:30 WBC RBC Hgb Hct MCV MCH MCHC RDW Std Deviation RDW Coeff of Dash Plt Count MPV Immature Gran % (Auto) Neut % (Auto) Lymph % (Auto) Meigs % (Auto) Eos % (Auto) Baso % (Auto) Neut # (Auto) Lymph # (Auto) Meigs # (Auto) Eos # (Auto) Baso # (Auto) Immature Gran # (Auto) PT INR Sodium Potassium Chloride Carbon Dioxide Anion Gap BUN Creatinine Est Cr Clr Drug Dosing Est GFR ( Amer) Est GFR (Non-Af Amer) BUN/Creatinine Ratio Glucose Calcium Magnesium Total Bilirubin AST ALT Alkaline Phosphatase Total Creatine Kinase Pending Total Protein Albumin Globulin Albumin/Globulin Ratio TSH 1.362 Urine Color Urine Appearance Urine pH Ur Specific Palmer Urine Protein Urine Glucose (UA) Urine Ketones Urine Blood Urine Nitrite Urine Bilirubin Urine Urobilinogen Ur Leukocyte Esterase Urine WBC (Auto) Urine RBC (Auto) U Hyaline Cast (Auto) U Epithel Cells (Auto) Urine Bacteria (Auto) SARS-CoV-2, RNA, NAAT POSITIVE A* 12/28/21 05:42 WBC RBC Hgb Hct MCV MCH MCHC RDW Std Deviation RDW Coeff of Dash Plt Count MPV Immature Gran % (Auto) Neut % (Auto) Lymph % (Auto) Meigs % (Auto) Eos % (Auto) Baso % (Auto) Neut # (Auto) Lymph # (Auto) Meigs # (Auto) Eos # (Auto) Baso # (Auto) Immature Gran # (Auto) PT INR Sodium Potassium Chloride Carbon Dioxide Anion Gap BUN Creatinine Est Cr Clr Drug Dosing Est GFR ( Amer) Est GFR (Non-Af Amer) BUN/Creatinine Ratio Glucose Calcium Magnesium Total Bilirubin AST ALT Alkaline Phosphatase Total Creatine Kinase Total Protein Albumin Globulin Albumin/Globulin Ratio TSH Urine Color Dark Yellow Urine Appearance Clear Urine pH 5.5 Ur Specific Palmer 1.033 H Urine Protein 1+ H Urine Glucose (UA) 1+ H Urine Ketones Trace H Urine Blood Trace H Urine Nitrite Negative Urine Bilirubin Negative Urine Urobilinogen Negative Ur Leukocyte Esterase Negative Urine WBC (Auto) 1-5 Urine RBC (Auto) 5-10 H U Hyaline Cast (Auto) 5-10 H U Epithel Cells (Auto) 10-20 H Urine Bacteria (Auto) Negative SARS-CoV-2, RNA, NAAT Diagnostic Findings Chest X-Ray 12/28/21 05:11 XR chest 1V portable CLINICAL HISTORY: weakness TECHNIQUE: Single frontal radiograph of the chest was obtained. Comparison: Comparison is made to chest radiograph 12/26/2021 FINDINGS: No lines and tubes are seen. The cardiomediastinal silhouette is normal. Reticular interstitial opacities are seen. No evidence of pleural effusion or pneumothorax. IMPRESSION: Interstitial opacities, similar to prior exam, without evidence of airspace opacity. ACT 112: Negative or not required by law. Electronically signed by: Kade Lovett M.D. 12/28/2021 7:[address] 12/28/21 05:12 CT OF THE HEAD WITHOUT CONTRAST CLINICAL HISTORY: weakness, ambulatory diff, COVID, anticoag COMPARISON STUDY: Head CT December 26, 2021. CT DOSE: 1228.24 mGy.cm TECHNIQUE: Helical axial images of the head were obtained without IV contrast. Automated exposure control was utilized for the study. A dose lowering techniq ue was utilized adhering to the principles of ALARA. FINDINGS: No acute intracranial hemorrhage, midline shift or mass effect is present. White matter hypodensities are unchanged and favor small vessel disease. The ventricular system is unremarkable. The basal cisterns are patent. No extra-axial collections are present. There are no findings to suggest acute dural sinus thrombosis or acute territorial infarct. No significant calvarial abnormalities are present. There is mild sinus mucosal thickening. IMPRESSION: No acute intracranial findings. No change in appearance of the brain. ACT 112: Negative or not required by law. Electronically signed by: Leonidas Sheffield M.D. 12/28/2021 6:29 AM Code Status & VTE Plan Code Status full code - but states no prolonged resuscitative efforts or prolonged mech ventilation PG Care Time/CCT Total # of Minutes Spent Total Time Spent with Patient: Total time spent is greater than 50% in coordination of care (as documented) at patient's floor/unit and/or counseling patient: Coding Level of Care Code 88222 Initial Inpt Care Lvl 3 Diagnoses COVID-19 U07.1 Iliac DVT (deep venous thrombosis) I82.429 Type 2 diabetes mellitus E11.9 Colitis K52.9 Alzheimer's dementia G30.9; F02.80 Rhabdomyolysis due to COVID-19 U07.1; M62.82 Chronic renal failure, stage 3b N18.32
[2021-12-28] MEDS ORDERED: OPTIRAY 300 500mL IV ONE (09:55)
--- NOTE | 2021-12-28 10:11 | Ultrasound Report ---
US venous doppler LE RT CLINICAL HISTORY: right iliac vein DVT; eval DVT of R leg TECHNIQUE: Right lower extremity real-time compression venous ultrasound with Color Doppler imaging. Utilizing real-time ultrasonic imaging multiple real time high-resolution ultrasonic images with comp ression and noncompression maneuvers of the deep venous system in addition to color doppler imaging w ere performed from the common femoral vein through the proximal calf veins. COMPARISON: None available at the time of this dictation. FINDINGS: Currently there is normal compressibility of the deep venous system from the common femoral vein thro ugh the proximal calf veins. The internal iliac artery could not be visualized. No superficial venou s thrombosis is identified. Impression: No evidence of deep venous thrombus. ACT 112: Negative or not required by law. Electronically signed by: Kade Lovett M.D. 12/28/2021 10:09 AM
--- NOTE | 2021-12-28 10:11 | CT Scan Report ---
CT ANGIOGRAPHY OF THE CHEST, PULMONARY EMBOLUS PROTOCOL CLINICAL HISTORY: COVID, DVT, check for PE/pneumonia COMPARISON STUDY: Chest radiograph December 26, 2021 and December 28, 2021. TECHNIQUE: Following IV administration of 120 mL of Optiray, helical axial images of the chest were o btained utilizing the pulmonary embolus protocol. Maximal intensity projections and sagittal and cor onal reformats were viewed on an independent 3D workstation. IV contrast was administered without co mplication. Automated exposure control was utilized for the study. A dose lowering technique was ut ilized adhering to the principles of ALARA. CT DOSE: 338.23 mGycm FINDINGS: No pulmonary emboli are identified. Mild cardiomegaly is noted. There is no thoracic aorti c dissection. No enlarged axillary, mediastinal or hilar lymph nodes are present. A small hiatal jens ia is noted. There is mild circumferential wall thickening of the mid to distal esophagus. No pneumot horax or pleural effusion is present. There is no consolidation to suggest pneumonia. Subpleural opac ities reflect atelectasis. There may be subtle interlobular septal thickening. No acute fracture or s uspicious lesion is identified within the visualized bony thorax. Visualized portions of the upper ab domen are unremarkable. IMPRESSION: 1. No pulmonary emboli identified. 2. No consolidation to suggest pneumonia. 3. Possible mild interstitial pulmonary edema. Mild cardiomegaly. 4. Small hiatal hernia with circumferential wall thickening of the esophagus. This is nonspecific but may reflect esophagitis. ACT 112: Negative or not required by law. Electronically signed by: Leonidas Sheffield M.D. 12/28/2021 10:09 AM
[2021-12-28] MEDS ORDERED: ONDANSETRON INJ 2 MG/ML 2 ML VIAL IV PRN (11:39)
[2021-12-28] MEDS ORDERED: REMDESIVIR 200 MG in SODIUM CHLORIDE 0.9% 210 ML IV ONE (12:15)
[2021-12-28] MEDS ORDERED: OLANZapine 10 MG/2.1 ML SDV IM STA (12:34)
[2021-12-28] MEDS: PANTOprazole 40 MG TAB PO SCH (12:36)
[2021-12-28] MEDS: OLANZapine 5 MG TABLET PO SCH ×2 (12:48→13:00)
[2021-12-28] MEDS: NSS + 20MEQ KCL 20 MEQ/1,000 ML BAG IV SCH (14:26)
[2021-12-28] MEDS: OLANZapine 10 MG/2.1 ML SDV IM SCH ×2 (18:00→23:15)
[2021-12-28] MEDS: ENOXAPARIN INJ 60 MG/0.6 ML SYR SQ SCH (20:51)
[2021-12-28] MEDS: MELATONIN 3 MG TAB PO SCH (23:15)
[2021-12-29] MEDS: ACETAMINOPHEN 325 MG TAB PO PRN (03:09)
[2021-12-29] MEDS: OLANZapine 10 MG/2.1 ML SDV IM SCH ×2 (05:32→12:21)
--- NOTE | 2021-12-29 05:48 | Electrocardiogram Report ---
Test Reason : Blood Pressure : / mmHG Vent. Rate : 091 BPM Atrial Rate : 091 BPM P-R Int : 146 ms QRS Dur : 080 ms QT Int : 348 ms P-R-T Axes : 037 -20 048 degrees QTc Int : 428 ms Normal sinus rhythm Normal ECG When compared with ECG of 26-DEC-2021 20:02, No significant change was found Confirmed by Yohannes Victoria ([id number]) on 12/29/2021 5:48:00 AM Referred By: REFERRED SELF Confirmed By:Yohannes Victoria
[2021-12-29 07:11] LABS: Hematocrit (blood only) 33.7 % (34.1-44.9); Hemoglobin 11.3 g/dl (12.0-16.0); Mean Corpuscular Hemoglobin 29.9 pg (25.0-34.0); Mean Corpuscular Hgb Conc 33.5 g/dL (32.0-36.0); Mean Corpuscular Volume 89.2 fL (80.0-100.0); Mean Platelet Volume 10.2 fL (9.4-12.3); Platelet Count 178 K/uL (130-400); RDW Coefficient of Variation 13.5 % (11.5-14.5); RDW Standard Deviation 44.3 fL (36.4-46.3); Red Blood Count 3.78 M/uL (3.93-5.22); White Blood Count 4.98 K/ul (4.8-10.8)
[2021-12-29 07:42] LABS: BUN Creatinine Ratio 26.7 (10-20); Calcium 7.8 mg/dl (8.5-10.1); Creatinine Clr Calc Pharmacy 50.8 ml/min; Est GFR (African American) 86.6 ml/min; Est GFR (Non-African American) 74.8 ml/min; Potassium 3.6 mmol/L (3.5-5.1)
[2021-12-29] MEDS: ENOXAPARIN INJ 60 MG/0.6 ML SYR SQ SCH ×2 (08:35→21:37)
[2021-12-29] MEDS: PANTOprazole 40 MG TAB PO SCH (08:35)
[2021-12-29] MEDS: NSS + 20MEQ KCL 20 MEQ/1,000 ML BAG IV SCH (10:59)
[2021-12-29] MEDS: REMDESIVIR 100 MG in SODIUM CHLORIDE 0.9% 230 ML IV SCH (12:05)
[2021-12-29] MEDS: OLANZapine 5 MG TABLET PO SCH ×2 (18:05→21:25)
--- NOTE | 2021-12-29 20:20 | Hospitalist Progress Note ---
Date of Service December 29, 2021 Assessment & Plan (1) COVID-19: Plan: day #2 Remdesivir. CTA chest with mild "pulm edema" but suspect these are pulmonary infiltrates - perhaps pneumonia. if O2 sats worsen will add dexamethasone - hold off for now. treat rhabdomyolysis with IV fluids. supportive care. (2) Iliac DVT (deep venous thrombosis): Plan: seen on CT abd/pelvis on 12/26. continue lovenox 1mg/kg BID. CTA chest with PEs. formal Doppler RLE negative for DVT. I assume that her DVT is COVID-related from hypercoagulable state. (3) Type 2 diabetes mellitus: Plan: new diagnosis made during prior hospital stay earlier this month with HbA1C >8%. DM diet. BSGs remain stable. (4) Colitis: Plan: as seen on CT earlier this month. radiographically resolved on 12/26 CT and clinically resolved. ischemic? infectious? either way is resolved. (5) Alzheimer's dementia: Plan: advanced. ongoing acute delirium while here in setting of her illness. cont home olanzapine QID either IM or PO - former if unable or unwilling to take orally. unusual dosing regimen but confirms this is how she takes it at home. (6) Rhabdomyolysis due to COVID-19: Plan: Peak CPK 1911. Had a reported fall on 12/26 but CPK then was wnl. Rhabdomyolysis likely due to COVID infection itself. Cont Isotonic fluids, repeat CPK in am. Mild AST elevation likely from the elevated CPK. AST is stable. (7) Chronic renal failure, stage 3b: Plan: baseline CrCl 30-45 repeat BMP stable today (8) Acute metabolic encephalopathy: Plan: 2nd to COVID infection this is in the setting of advanced dementia cont zyprexa per home dosing Plan updated by phone this evening Admission and Anticipated Discharge Date Admission Date: December 28, 2021 Subjective tele stable overnight pt very confused - cannot offer any meaningful history multiple times overnight and today has pulled off tele leads, pulled at her IV and removed such, aggressive with staff, etc eating is poor Review of Systems Review of Systems: Unobtainable due to cognitive status Physical Exam Physical Exam: gen - thin, confused - but NAD mouth - MM still dry neck - no JVD, no masses heart - RRR, s1 s2, no murmur lungs - CTA b/l abd - soft NT ND BS+; no HSM ext - pulses 2+ b/l neuro - moves all 4 limbs symmetrically psych - a/o to person only Results & Data Results & Data ([facility]) Vital Signs (Past 12 Hours) Vital Signs Temp Pulse Pulse Resp BP Pulse Ox O2 Del Method 12/29/21 18:34 87 12/29/21 14:12 Room Air 12/29/21 12:10 36.7 C 88 19 129/74 96 Room Air 12/29/21 09:07 93 H Laboratory Results Laboratory Results - last 24 hr 12/28/21 12/29/21 12/29/21 22:25 06:36 06:36 WBC 4.98 RBC 3.78 L Hgb 11.3 L Hct 33.7 L MCV 89.2 MCH 29.9 MCHC 33.5 RDW Std Deviation 44.3 RDW Coeff of Dash 13.5 Plt Count 178 MPV 10.2 Sodium 138 Potassium 3.6 Chloride 107 Carbon Dioxide 21 Anion Gap 10 BUN 20 Creatinine 0.75 Est Cr Clr Drug Dosing 50.8 Est GFR ( Amer) 86.6 Est GFR (Non-Af Amer) 74.8 BUN/Creatinine Ratio 26.7 H Glucose 122 H POC Glucose 130 H Calcium 7.8 L AST 62 H ALT 41 Total Creatine Kinase 1781 H 12/29/21 12/29/21 12/29/21 07:57 11:59 16:42 WBC RBC Hgb Hct MCV MCH MCHC RDW Std Deviation RDW Coeff of Dash Plt Count MPV Sodium Potassium Chloride Carbon Dioxide Anion Gap BUN Creatinine Est Cr Clr Drug Dosing Est GFR ( Amer) Est GFR (Non-Af Amer) BUN/Creatinine Ratio Glucose POC Glucose 127 H 123 H 157 H Calcium AST ALT Total Creatine Kinase PG Care Time/CCT Total # of Minutes Spent Total Time Spent with Patient: Total time spent is greater than 50% in coordination of care (as documented) at patient's floor/unit and/or counseling patient: Coding Level of Care Code 23588 Subseq Hosp Care Lvl 2 Diagnoses COVID-19 U07.1 Iliac DVT (deep venous thrombosis) I82.429 Type 2 diabetes mellitus E11.9 Colitis K52.9 Alzheimer's dementia G30.9; F02.80 Rhabdomyolysis due to COVID-19 U07.1; M62.82 Chronic renal failure, stage 3b N18.32 Acute metabolic encephalopathy G93.41
[2021-12-29] MEDS: MELATONIN 3 MG TAB PO SCH (21:25)
[2021-12-30 07:44] LABS: Alanine Aminotransferase 41 U/L (7-52); Aspartate Aminotransferase 56 U/L (13-39)
[2021-12-30 07:46] LABS: BUN Creatinine Ratio 32.3 (10-20); Calcium 8.1 mg/dl (8.5-10.1); Creatinine Clr Calc Pharmacy 61.5 ml/min; Est GFR (Non-African American) 84.6 ml/min
[2021-12-30] MEDS: ENOXAPARIN INJ 60 MG/0.6 ML SYR SQ SCH ×2 (09:43→20:41)
[2021-12-30] MEDS: OLANZapine 5 MG TABLET PO SCH ×4 (09:44→20:42)
[2021-12-30] MEDS: PANTOprazole 40 MG TAB PO SCH (10:27)
[2021-12-30] MEDS: REMDESIVIR 100 MG in SODIUM CHLORIDE 0.9% 230 ML IV SCH (13:00)
[2021-12-30] MEDS: MELATONIN 3 MG TAB PO SCH (20:41)
[2021-12-30] MEDS: NSS + 20MEQ KCL 20 MEQ/1,000 ML BAG IV SCH (20:41)
--- NOTE | 2021-12-30 23:00 | Hospitalist Progress Note ---
Date of Service December 30, 2021 Assessment & Plan (1) COVID-19: Plan: day #3 Remdesivir. CTA chest with mild "pulm edema" but suspect these are pulmonary infiltrates - perhaps pneumonia. despite such O2 sats remain robust/normal and thus cont to defer on dexamethas one therapy. . treat rhabdomyolysis with IV fluids. supportive care. (2) Iliac DVT (deep venous thrombosis): Plan: seen on CT abd/pelvis on 12/26. continue lovenox 1mg/kg BID. CTA chest without PEs. formal Doppler RLE negative for DVT. I assume that her DVT is COVID-related from hypercoagulable state. will need 6 months of Rx. suspect we can change her lovenox to Eliquis or similar. (3) Type 2 diabetes mellitus: Plan: new diagnosis made during prior hospital stay earlier this month with HbA1C >8%. DM diet. BSGs remain stable. cont to monitor. (4) Colitis: Plan: as seen on CT earlier this month. radiographically resolved on 12/26 CT and clinically resolved. ischemic? infectious? either way is resolved. (5) Alzheimer's dementia: Plan: advanced. ongoing acute delirium while here in setting of her illness. cont home olanzapine QID. unusual dosing regimen but confirms this is how she takes it at home. (6) Rhabdomyolysis due to COVID-19: Plan: Peak CPK 1910. Had a reported fall on 12/26 but CPK then was wnl. Rhabdomyolysis likely due to COVID infection itself. CPK cont to improve. AST cont to improve. Cont fluids with repeat CPK in am. Mild AST elevation likely from the elevated CPK and again recheck am. (7) Chronic renal failure, stage 3b: Plan: baseline CrCl 30-45 CrCl is about 60 today repeat BMP am (8) Acute metabolic encephalopathy: Plan: 2nd to COVID infection this is in the setting of advanced dementia cont zyprexa per home dosing ongoing issue with agitation and need for soft mitts restraints due to pulling at her IV, combativeness with staff, etc cont melatonin HS Plan updated by phone 12/29 update him again on 12/31 Admission and Anticipated Discharge Date Admission Date: December 28, 2021 Subjective per staff patient remains very confused needing ongoing use of soft mitts due to pulling at her IV, combativeness with staff during routine care, etc eating 25-33% of her meals by report did have bowel movement today incontinent of urine at baseline no new issues otherwise Review of Systems Review of Systems: Unobtainable due to cognitive status Physical Exam Physical Exam: gen - slept the entire visit mouth - MM still dry neck - no JVD, no masses heart - RRR, s1 s2, no murmur lungs - CTA b/l abd - soft NT ND BS+; no HSM ext - pulses 2+ b/l, no edema soft mitts in place on hands Results & Data Results & Data ([facility]) Vital Signs (Past 12 Hours) Vital Signs Temp Pulse Resp BP BP Pulse Ox O2 Del Method 12/30/21 22:30 Room Air 12/30/21 20:54 37.2 C 92 H 20 126/69 96 Room Air 12/30/21 16:00 36.8 C 81 16 157/71 H 95 Room Air 12/30/21 12:00 37 C 95 H 18 135/77 98 Room Air Laboratory Results Laboratory Results - last 24 hr 12/30/21 12/30/21 12/30/21 06:42 06:42 08:25 Sodium 138 Potassium 4.0 Chloride 108 H Carbon Dioxide 21 Anion Gap 9 BUN 20 Creatinine 0.62 Est Cr Clr Drug Dosing 61.5 Est GFR ( Amer) 98.0 Est GFR (Non-Af Amer) 84.6 BUN/Creatinine Ratio 32.3 H Glucose 137 H POC Glucose 130 H Calcium 8.1 L AST 56 H ALT 41 Total Creatine Kinase 1230 H 12/30/21 12/30/21 12/30/21 12:03 17:02 20:39 Sodium Potassium Chloride Carbon Dioxide Anion Gap BUN Creatinine Est Cr Clr Drug Dosing Est GFR ( Amer) Est GFR (Non-Af Amer) BUN/Creatinine Ratio Glucose POC Glucose 190 H 143 H 143 H Calcium AST ALT Total Creatine Kinase PG Care Time/CCT Total # of Minutes Spent Total Time Spent with Patient: Total time spent is greater than 50% in coordination of care (as documented) at patient's floor/unit and/or counseling patient: Coding Level of Care Code 14236 Subseq Hosp Care Lvl 2 Diagnoses COVID-19 U07.1 Iliac DVT (deep venous thrombosis) I82.429 Type 2 diabetes mellitus E11.9 Colitis K52.9 Alzheimer's dementia G30.9; F02.80 Rhabdomyolysis due to COVID-19 U07.1; M62.82 Chronic renal failure, stage 3b N18.32 Acute metabolic encephalopathy G93.41
[2021-12-31] MEDS: ACETAMINOPHEN 325 MG TAB PO PRN ×2 (02:20→16:40)
[2021-12-31 07:33] LABS: Alanine Aminotransferase 33 U/L (7-52); Aspartate Aminotransferase 40 U/L (13-39); Creatine Kinase 625 U/L (26-192)
[2021-12-31] MEDS: PANTOprazole 40 MG TAB PO SCH (08:20)
[2021-12-31] MEDS: OLANZapine 5 MG TABLET PO SCH ×4 (08:20→20:34)
[2021-12-31] MEDS: ENOXAPARIN INJ 60 MG/0.6 ML SYR SQ SCH ×2 (08:20→20:34)
[2021-12-31] MEDS: REMDESIVIR 100 MG in SODIUM CHLORIDE 0.9% 230 ML IV SCH (12:23)
--- NOTE | 2021-12-31 13:23 | Hospitalist Progress Note ---
Date of Service December 31, 2021 Assessment & Plan (1) COVID-19: Plan: day #4 Remdesivir. CTA chest with mild "pulm edema" but suspect these are pulmonary infiltrates - perhaps pneumonia. despite such O2 sats remain robust/normal and thus will cont to defer on dexamethasone therapy. COVID-induced rhabdomyolysis nearly resolved with IV fluids. supportive care. recheck CPK am. hopefully appetite improves soon. (2) Iliac DVT (deep venous thrombosis): Plan: seen on CT abd/pelvis on 12/26. continue lovenox 1mg/kg BID. CTA chest without PEs. formal Doppler RLE negative for DVT. I assume that her DVT is COVID-related from hypercoagulable state. will need 6 months of Rx. suspect we can change her lovenox to Eliquis or similar later in the stay. (3) Type 2 diabetes mellitus: Plan: new diagnosis made during prior hospital stay earlier this month with HbA1C >8%. DM diet. BSGs remain stable/controlled. cont to monitor. (4) Colitis: Plan: as seen on CT earlier this month. radiographically resolved on 12/26 CT and clinically resolved. ischemic? infectious? resolved. (5) Alzheimer's dementia: Plan: advanced. ongoing acute delirium while here in setting of her illness. modestly improved. cont home olanzapine QID. unusual dosing regimen but confirms this is how she takes it at home. (6) Rhabdomyolysis due to COVID-19: Plan: Peak CPK 1911. Had a reported fall on 12/26 but CPK then was wnl. Rhabdomyolysis likely due to COVID infection itself. CPK cont to improve. AST cont to improve. Cont fluids with repeat CPK in am. Mild AST elevation likely from the elevated CPK. (7) Chronic renal failure, stage 3b: Plan: baseline CrCl 30-45 repeat BMP am (8) Acute metabolic encephalopathy: Plan: 2nd to COVID infection this is in the setting of advanced dementia cont zyprexa per home dosing ongoing issue with agitation and need for soft mitts restraints due to pulling at her IV, combativeness with staff, etc cont melatonin HS Plan updated by phone 12/29 and again today 12/31 Admission and Anticipated Discharge Date Admission Date: December 28, 2021 Subjective ate little for breakfast still with Mitts in place for safety and to avoid pulling at IVs was sleeping upon arrival easily awoke when I called her name when I asked her where she was she said "dudu" she was not able to offer any meaningful history/ros Review of Systems Review of Systems: Unobtainable due to cognitive status Physical Exam Physical Exam: gen - thin, awake, calm, no agitation, altered mouth - MM dry neck - no JVD, no masses heart - RRR, s1 s2, no murmur lungs - CTA b/l; no rales abd - soft NT ND BS+; no HSM ext - pulses 2+ b/l, no edema soft mitts in place on hands psych - a/o x 1 (person) only Results & Data Results & Data ([facility]) Vital Signs (Past 12 Hours) Vital Signs Temp Pulse Resp BP Pulse Ox Pulse Ox O2 Del Method 12/31/21 10:12 98 12/31/21 08:17 36.6 C 77 14 136/72 96 Room Air O2 Del Method 12/31/21 10:12 Room Air 12/31/21 08:17 Laboratory Results Laboratory Results - last 24 hr 12/30/21 12/30/21 12/31/21 17:02 20:39 05:33 POC Glucose 143 H 143 H AST 40 H ALT 33 Total Creatine Kinase 625 H 12/31/21 12/31/21 08:19 12:19 POC Glucose 124 H 158 H AST ALT Total Creatine Kinase PG Care Time/CCT Total # of Minutes Spent Total Time Spent with Patient: Total time spent is greater than 50% in coordination of care (as documented) at patient's floor/unit and/or counseling patient: Coding Level of Care Code 49251 Subseq Hosp Care Lvl 2 Diagnoses COVID-19 U07.1 Iliac DVT (deep venous thrombosis) I82.429 Type 2 diabetes mellitus E11.9 Colitis K52.9 Alzheimer's dementia G30.9; F02.80 Rhabdomyolysis due to COVID-19 U07.1; M62.82 Chronic renal failure, stage 3b N18.32 Acute metabolic encephalopathy G93.41
[2021-12-31] MEDS ORDERED: HALOPERIDOL LACTATE 5 MG/ML 1 ML VIAL IM STA (16:45)
[2021-12-31] MEDS: NSS + 20MEQ KCL 20 MEQ/1,000 ML BAG IV SCH (17:04)
[2021-12-31] MEDS: MELATONIN 3 MG TAB PO SCH (20:34)
[2022-01-01 07:10] LABS: Hematocrit (blood only) 27.8 % (34.1-44.9); Hemoglobin 9.4 g/dl (12.0-16.0); Mean Corpuscular Hemoglobin 30.1 pg (25.0-34.0); Mean Corpuscular Hgb Conc 33.8 g/dL (32.0-36.0); Mean Corpuscular Volume 89.1 fL (80.0-100.0); Mean Platelet Volume 9.8 fL (9.4-12.3); Platelet Count 203 K/uL (130-400); RDW Coefficient of Variation 13.5 % (11.5-14.5); RDW Standard Deviation 44.1 fL (36.4-46.3); Red Blood Count 3.12 M/uL (3.93-5.22); White Blood Count 4.82 K/ul (4.8-10.8)
[2022-01-01] MEDS: PANTOprazole 40 MG TAB PO SCH (07:29)
[2022-01-01] MEDS: ACETAMINOPHEN 325 MG TAB PO PRN (07:30)
[2022-01-01] MEDS: ENOXAPARIN INJ 60 MG/0.6 ML SYR SQ SCH ×2 (07:30→20:07)
[2022-01-01] MEDS: OLANZapine 5 MG TABLET PO SCH ×4 (07:31→20:07)
[2022-01-01 07:32] LABS: BUN Creatinine Ratio 29.1 (10-20); Calcium 7.7 mg/dl (8.5-10.1); Creatinine Clr Calc Pharmacy 63.4 ml/min
[2022-01-01] MEDS: REMDESIVIR 100 MG in SODIUM CHLORIDE 0.9% 230 ML IV SCH (11:53)
--- NOTE | 2022-01-01 13:30 | Hospitalist Progress Note ---
Date of Service January 01, 2022 Assessment & Plan (1) COVID-19: Plan: 5th and final day of Remdesivir course today. CTA chest with mild "pulm edema" but suspect these are pulmonary infiltrates - perhaps pneumonia. I have deferred on dexamethasone because o2 sats have been stable and her pulmonary status has been fine. COVID-induced rhabdomyolysis nearly resolved with IV fluids. cont supportive care. appetite seems a little better today. PT, OT. (2) Iliac DVT (deep venous thrombosis): Plan: seen on CT abd/pelvis on 12/26. continue lovenox 1mg/kg BID. CTA chest without PEs. formal Doppler RLE negative for DVT. I assume that her DVT is COVID-related from hypercoagulable state. will need 6 months of Rx. suspect we can change her lovenox to Eliquis or similar later in the stay. (3) Type 2 diabetes mellitus: Plan: new diagnosis made during prior hospital stay earlier this month with HbA1C >8%. DM diet. BSGs remain acceptable. cont to monitor. (4) Colitis: Plan: as seen on CT earlier this month. radiographically resolved on 12/26 CT and clinically resolved. ischemic? infectious? resolved. (5) Alzheimer's dementia: Plan: advanced. ongoing acute delirium while here in setting of her illness. modestly improved. cont home olanzapine QID. unusual dosing regimen but confirms this is how she takes it at home. (6) Rhabdomyolysis due to COVID-19: Plan: Peak CPK 1911. Had a reported fall on 12/26 but CPK then was wnl. Rhabdomyolysis likely due to COVID infection itself. CPK down <500 today. AST now normal. Cont fluids. (7) Chronic renal failure, stage 3b: Plan: baseline CrCl 30-45 repeat BMP am (8) Acute metabolic encephalopathy: Plan: 2nd to COVID infection this is in the setting of advanced dementia cont zyprexa per home dosing hopefully we can leave the mitts off for the rest of the day cont melatonin HS (9) Urinary retention: Plan: s/p straight cath this am if she has another episode of retention simply place torres, check u/a and urine cx monitor with bladder scans prn Plan updated by phone 12/29 and again 12/31 will call him later today Admission and Anticipated Discharge Date Admission Date: December 28, 2021 Subjective per nursing staff she had a restless night just before my arrival she had worked with OT and we removed the soft mitts patient was able to feed herself some lunch yesterday had pulled out several IVs - has not done this today remains confused but no agitation or combativeness she did have urinary retention this am - bladder scan showed 1000cc, I/O straight cath yielded 800cc during my visit she was calm and pleasant; no agitation but confused denied pain in any location Review of Systems Review of Systems: Unobtainable due to cognitive status Physical Exam Physical Exam: gen - thin, awake, calm, pleasant confusion mouth - MM more moist today neck - no JVD, no masses heart - RRR, s1 s2, no murmur lungs - CTA b/l; no rales abd - soft NT ND BS+; no HSM ext - pulses 2+ b/l, no edema; soft mitts have been removed psych - a/o x 1 (person) only neuro - mild tremors of arms noted Results & Data Results & Data ([facility]) Vital Signs (Past 12 Hours) Vital Signs Temp Pulse Resp BP Pulse Ox Pulse Ox O2 Del Method 01/01/22 10:23 98 01/01/22 09:41 Room Air 01/01/22 07:42 36.7 C 105 H 16 134/75 98 Room Air O2 Del Method 01/01/22 10:23 Room Air 01/01/22 09:41 01/01/22 07:42 Laboratory Results Laboratory Results - last 24 hr 12/31/21 12/31/21 01/01/22 16:38 20:31 06:47 WBC RBC Hgb Hct MCV MCH MCHC RDW Std Deviation RDW Coeff of Dash Plt Count MPV Sodium 139 Potassium 4.0 Chloride 109 H Carbon Dioxide 25 Anion Gap 5 BUN 16 Creatinine 0.55 L Est Cr Clr Drug Dosing 63.4 Est GFR ( Amer) 102.0 Est GFR (Non-Af Amer) 88.0 BUN/Creatinine Ratio 29.1 H Glucose 159 H POC Glucose 168 H 153 H Calcium 7.7 L AST 35 ALT 32 Total Creatine Kinase 450 H 01/01/22 01/01/22 01/01/22 06:47 07:28 11:45 WBC 4.82 RBC 3.12 L Hgb 9.4 L Hct 27.8 L MCV 89.1 MCH 30.1 MCHC 33.8 RDW Std Deviation 44.1 RDW Coeff of Dash 13.5 Plt Count 203 MPV 9.8 Sodium Potassium Chloride Carbon Dioxide Anion Gap BUN Creatinine Est Cr Clr Drug Dosing Est GFR ( Amer) Est GFR (Non-Af Amer) BUN/Creatinine Ratio Glucose POC Glucose 135 H 172 H Calcium AST ALT Total Creatine Kinase PG Care Time/CCT Total # of Minutes Spent Total Time Spent with Patient: Total time spent is greater than 50% in coordination of care (as documented) at patient's floor/unit and/or counseling patient: Coding Level of Care Code 15465 Subseq Hosp Care Lvl 2 Diagnoses COVID-19 U07.1 Iliac DVT (deep venous thrombosis) I82.429 Type 2 diabetes mellitus E11.9 Colitis K52.9 Alzheimer's dementia G30.9; F02.80 Rhabdomyolysis due to COVID-19 U07.1; M62.82 Chronic renal failure, stage 3b N18.32 Acute metabolic encephalopathy G93.41 Urinary retention R33.9
[2022-01-01] MEDS: NSS + 20MEQ KCL 20 MEQ/1,000 ML BAG IV SCH (15:25)
[2022-01-01] MEDS ORDERED: HALOPERIDOL LACTATE 5 MG/ML 1 ML VIAL IM STA (17:10)
[2022-01-01 17:27] LABS: Appearance Urine Cloudy (Clear); Bacteria Urine Automated 4+ (Negative); Bilirubin Urine Negative (Negative); Blood Urine Negative (Negative); Color Urine Yellow; Epithelial Cell Urine Auto 20-30 /lpf (0-5); Glucose Urine UA Negative (Negative); Ketones Urine 1+ (Negative); Leukocyte Esterase Urine 1+ (Negative); Nitrite Urine Negative (Negative); Protein Urine Trace (Negative); RBC Urine Automated 0-4 /hpf (0-4); Specific Gravity Urine 1.025 (1.000-1.030); Urobilinogen Urine Negative (Negative)
[2022-01-01] MEDS ORDERED: cefTRIAXone SODIUM 1,000 MG in DEXTROSE 5% 50 ML IV SCH (18:15)
[2022-01-01] MEDS: MELATONIN 3 MG TAB PO SCH (20:07)
[2022-01-01] MEDS ORDERED: HALOPERIDOL LACTATE 5 MG/ML 1 ML VIAL IM PRN (20:39)
[2022-01-02 07:59] LABS: Basophils # (auto) 0.01 K/uL (0-0.2); Basophils % (auto) 0.2 %; Eosinophils # (auto) 0.02 K/uL (0-0.50); Eosinophils % (auto) 0.4 %; Hematocrit (blood only) 25.3 % (34.1-44.9); Hemoglobin 8.6 g/dl (12.0-16.0); Immature Granulocytes # (auto) 0.03 K/uL (0.00-0.02); Immature Granulocytes % (auto) 0.5 %; Lymphocytes # (auto) 1.11 K/uL (1.2-3.4); Lymphocytes % (auto) 20.2 %; Mean Corpuscular Hemoglobin 29.7 pg (25.0-34.0); Mean Corpuscular Volume 87.2 fL (80.0-100.0); Mean Platelet Volume 11.3 fL (9.4-12.3); Monocytes # (auto) 0.55 K/uL (0.24-0.82); Neutrophils # (auto) 3.78 K/uL (1.4-6.5); Neutrophils % (auto) 68.7 %; Platelet Count 174 K/uL (130-400); RDW Coefficient of Variation 13.2 % (11.5-14.5); RDW Standard Deviation 42.5 fL (36.4-46.3)
[2022-01-02] MEDS: NSS + 20MEQ KCL 20 MEQ/1,000 ML BAG IV SCH (08:17)
[2022-01-02] MEDS: LANTUS PER UNIT CHARGE SQ SCH (08:19)
[2022-01-02] MEDS: ENOXAPARIN INJ 60 MG/0.6 ML SYR SQ SCH (08:20)
[2022-01-02 08:21] LABS: BUN Creatinine Ratio 24.5 (10-20); Calcium 7.7 mg/dl (8.5-10.1); Creatinine Clr Calc Pharmacy 65.8 ml/min; Est GFR (African American) 103.2 ml/min; Potassium 3.8 mmol/L (3.5-5.1)
[2022-01-02] MEDS: OLANZapine 10 MG TAB PO SCH ×2 (11:00→21:38)
--- NOTE | 2022-01-02 11:12 | CT Scan Report ---
CT OF THE ABDOMEN AND PELVIS WITHOUT CONTRAST CLINICAL HISTORY: acute blood loss; r/o retroperitoneal hematoma COMPARISON STUDY: CT of the abdomen and pelvis December 26, 2021. TECHNIQUE: Axial images of the abdomen and pelvis were obtained without IV contrast. Images were revi ewed in the axial, sagittal, and coronal planes. Automated exposure control was utilized for the margy dy. A dose lowering technique was utilized adhering to the principles of ALARA. FINDINGS: This exam is compromised given difficulty positioning. No significant abnormality is noted within the visualized lung bases. No pneumatosis, free air or portal venous gas is present. There is mild gallbladder distention. There is no pericholecystic stranding. Unenhanced images of the liver, s pleen, adrenal glands, kidneys and pancreas are unremarkable. There is no hydronephrosis. No evidence for a bowel obstruction. Presacral stranding is noted. There is colonic diverticulosis without evide nce for acute diverticulitis. A Boyd balloon within the bladder is noted as well as gas. There is no retroperitoneal hematoma. No hemoperitoneum is noted. Note is made of a partially visualized acute i ntramuscular hematoma within the left adductor musculature which measures at least 8.9 x 8.2 cm. Stra nding within the left thigh and groin is noted. No acute fracture within the visualized skeletal stru ctures is present. Asymmetric enlargement and subtle hyperdensity of the right internal iliac vein re presents deep venous thrombus better depicted on contrast enhanced CT of December 26, 2021. Subcutan eous injection sites within the anterior abdominal wall are incidentally noted. IMPRESSION: 1. Partially visualized acute intramuscular hematoma within the left adductor musculature which measu res at least 8.9 x 8.2 cm. This finding will be called/faxed to ordering provider at time of dictatio n. 2. No retroperitoneal hematoma. 3. Mild gallbladder distention. No pericholecystic stranding. 4. Redemonstration of deep venous thrombus within the right internal iliac vein, better depicted on C T of December 26, 2021. ACT 112: Negative or not required by law. Electronically signed by: Leonidas Sheffield M.D. 01/02/2022 11:10 AM
--- NOTE | 2022-01-02 13:22 | Hospitalist Progress Note ---
Date of Service January 02, 2022 Assessment & Plan (1) Acute blood loss anemia: Plan: 2nd to #2 below. STOP lovenox. Serial H/H. Will need IVC filter. See below. Fortunately urine output and blood pressures are satisfactory at this time. (2) Intramuscular hematoma: Plan: LEFT adductor musculature. As seen on CT today and on exam. Suspect she probably had muscular injury in the left thigh from trauma from her prior fall on 12/26/21. Once on therapeutic lovenox any pre-existing scant bruising probably then bled. Nothing to do for this except STOP lovenox. Follow H/H's. The bleeding should tamponade once lovenox works out of her system. She has not had any aspirin since admission (was on such at home). (3) COVID-19: Plan: s/p 5-day course of Remdesivir completed. CTA chest day of admission with mild "pulm edema" but suspect these were pulmonary infiltrates / pneumonia. Dexamethasone was deferred -- o2 sats stable and her pulmonary status has been fine since admission. COVID-induced rhabdomyolysis and traumatic rhabdo resolved with IV fluids. cont supportive care. PT, OT when able. see below re: IVC filter. overall has done poorly on multiple levels. (4) Iliac DVT (deep venous thrombosis): Plan: seen on CT abd/pelvis on 12/26. had been started on lovenox at that time in ER and d/c home. upon admission on 12/28 lovenox was continued. CTA chest without PEs. formal Doppler RLE negative for DVT. I assume that her DVT was COVID-related from hypercoagulable state. unfortunately has developed #1 and #2. STOP LOVENOX. Consult vascular surgery - Dr Rich. Will need IVC filter. (5) Type 2 diabetes mellitus: Plan: new diagnosis made during prior hospital stay earlier this month with HbA1C >8%. DM diet. BSGs mildly high. added lantus 5 units daily. (6) Colitis: Plan: as seen on CT earlier this month. radiographically resolved on 12/26 CT and clinically resolved. ischemic? infectious? regardless of etiology - resolved. (7) Alzheimer's dementia: Plan: advanced. ongoing acute delirium while here in setting of her illness. takes olanzapine 5mg QID. unusual dosing regimen but confirms this is how she takes it at home. she has required IM haldol 2 days in a row despite the large dose of baseline zyprexa. I spoke with psych - we changed the zyprexa to 10mg BID - dose at noon, and dose at bedtime. unfortunately the 10mg dose at noon today made her lethargic thus will cut back the noon dose to 5mg. re-eval tomorrow. (8) Rhabdomyolysis due to COVID-19: Plan: Peak CPK 1. Had a reported fall on 12/26. Rhabdomyolysis likely due to COVID infection itself and the fall. last CPK down <500. mild elevation in AST was likely due to rhabdomyolysis. AST now normal. Cont fluids. (9) Chronic renal failure, stage 3b: Plan: baseline CrCl 30-45 repeat BMP am (10) Acute metabolic encephalopathy: Plan: 2nd to COVID infection, hospital psychosis, UTI, etc. this is in the setting of advanced dementia see above RE: zyprexa soft mitts restraints due to constant pulling out IVs, pulling at torres, etc cont melatonin HS (11) Urinary retention: Plan: likely 2nd to UTI s/p torres placement treat the UTI (12) UTI (urinary tract infection): Plan: had been on rocephin, but is growing GPC change rocephin to IV vanco today follow culture Plan updated by phone 12/29, 12/31, and twice today aware of anemia, hematoma in L thigh, and need for IVC filter which is planned for tomorrow Admission and Anticipated Discharge Date Admission Date: December 28, 2021 Subjective due to drop in H/H this am I obtained stat CT a/p to r/o retroperitoneal hemorrhage negative for retroperitoneal hemorrhage HOWEVER shows left adductor musculature hematoma following such I spoke with vascular who can perform IVC filter tomorrow I then called and spoke with pt's he wishes to proceed forward with the filter device lovenox placed on hold once the hematoma was detected on CT patient was awake this am for breakfast (ate poorly) was awake for her CT at lunch-time took minimal amount of food once again then received lunch-time zyprexa since then has been sleeping I saw patient mid-afternoon and she was fast asleep I could not wake her up Review of Systems Review of Systems: Unobtainable due to cognitive status (sleeping) Physical Exam Physical Exam: gen - thin, sleeping, NAD mouth - MM still dry neck - no JVD heart - RRR, s1 s2, no murmur lungs - CTA b/l; no rales abd - soft NT ND BS+; no HSM ext - pulses 2+ b/l, soft mitts in place musculo/skin - blotchy ecchymoses in the L groin and medial thigh; there is notable swelling and slight warmth in the proximal thigh Results & Data Results & Data ([facility]) Vital Signs (Past 12 Hours) Vital Signs Temp Pulse Resp BP Pulse Ox Pulse Ox O2 Del Method 01/02/22 11:00 94 01/02/22 08:58 Room Air 01/02/22 08:11 36.8 C 88 20 131/67 96 Room Air 01/02/22 05:12 36.9 C 98 H 20 131/67 96 Room Air O2 Del Method 01/02/22 11:00 Room Air 01/02/22 08:58 01/02/22 08:11 01/02/22 05:12 Laboratory Results Laboratory Results - last 24 hr 01/01/22 01/01/22 01/01/22 16:54 20:04 Unknown WBC RBC Hgb Hct MCV MCH MCHC RDW Std Deviation RDW Coeff of Dash Plt Count MPV Immature Gran % (Auto) Neut % (Auto) Lymph % (Auto) Dawson % (Auto) Eos % (Auto) Baso % (Auto) Neut # (Auto) Lymph # (Auto) Dawson # (Auto) Eos # (Auto) Baso # (Auto) Immature Gran # (Auto) Sodium Potassium Chloride Carbon Dioxide Anion Gap BUN Creatinine Est Cr Clr Drug Dosing Est GFR ( Amer) Est GFR (Non-Af Amer) BUN/Creatinine Ratio Glucose POC Glucose 167 H 198 H Calcium AST ALT Urine Color Yellow Urine Appearance Cloudy A Urine pH 5.0 Ur Specific [place] 1.025 Urine Protein Trace H Urine Glucose (UA) Negative Urine Ketones 1+ H Urine Blood Negative Urine Nitrite Negative Urine Bilirubin Negative Urine Urobilinogen Negative Ur Leukocyte Esterase 1+ H Urine WBC (Auto) 10-30 H Urine RBC (Auto) 0-4 U Hyaline Cast (Auto) 1-5 U Epithel Cells (Auto) 20-30 H Urine Bacteria (Auto) 4+ H 01/02/22 01/02/22 01/02/22 07:21 07:21 08:16 WBC 5.50 RBC 2.90 L Hgb 8.6 L Hct 25.3 L MCV 87.2 MCH 29.7 MCHC 34.0 RDW Std Deviation 42.5 RDW Coeff of Dash 13.2 Plt Count 174 MPV 11.3 Immature Gran % (Auto) 0.5 Neut % (Auto) 68.7 Lymph % (Auto) 20.2 Dawson % (Auto) 10.0 Eos % (Auto) 0.4 Baso % (Auto) 0.2 Neut # (Auto) 3.78 Lymph # (Auto) 1.11 L Dawson # (Auto) 0.55 Eos # (Auto) 0.02 Baso # (Auto) 0.01 Immature Gran # (Auto) 0.03 H Sodium 136 Potassium 3.8 Chloride 106 Carbon Dioxide 25 Anion Gap 5 BUN 13 Creatinine 0.53 L Est Cr Clr Drug Dosing 65.8 Est GFR ( Amer) 103.2 Est GFR (Non-Af Amer) 89.0 BUN/Creatinine Ratio 24.5 H Glucose 158 H POC Glucose 161 H Calcium 7.7 L AST 30 ALT 28 Urine Color Urine Appearance Urine pH Ur Specific [place] Urine Protein Urine Glucose (UA) Urine Ketones Urine Blood Urine Nitrite Urine Bilirubin Urine Urobilinogen Ur Leukocyte Esterase Urine WBC (Auto) Urine RBC (Auto) U Hyaline Cast (Auto) U Epithel Cells (Auto) Urine Bacteria (Auto) 01/02/22 10:57 WBC RBC Hgb Hct MCV MCH MCHC RDW Std Deviation RDW Coeff of Dash Plt Count MPV Immature Gran % (Auto) Neut % (Auto) Lymph % (Auto) Dawson % (Auto) Eos % (Auto) Baso % (Auto) Neut # (Auto) Lymph # (Auto) Dawson # (Auto) Eos # (Auto) Baso # (Auto) Immature Gran # (Auto) Sodium Potassium Chloride Carbon Dioxide Anion Gap BUN Creatinine Est Cr Clr Drug Dosing Est GFR ( Amer) Est GFR (Non-Af Amer) BUN/Creatinine Ratio Glucose POC Glucose 132 H Calcium AST ALT Urine Color Urine Appearance Urine pH Ur Specific [place] Urine Protein Urine Glucose (UA) Urine Ketones Urine Blood Urine Nitrite Urine Bilirubin Urine Urobilinogen Ur Leukocyte Esterase Urine WBC (Auto) Urine RBC (Auto) U Hyaline Cast (Auto) U Epithel Cells (Auto) Urine Bacteria (Auto) Diagnostic Findings Abdomen/Pelvis CT 01/02/22 09:26 CT OF THE ABDOMEN AND PELVIS WITHOUT CONTRAST CLINICAL HISTORY: acute blood loss; r/o retroperitoneal hematoma COMPARISON STUDY: CT of the abdomen and pelvis December 26, 2021. TECHNIQUE: Axial images of the abdomen and pelvis were obtained without IV contrast. Images were reviewed in the axial, sagittal, and coronal planes. Automated exposure control was utilized for the study. A dose lowering technique was utilized adhering to the principles of ALARA. FINDINGS: This exam is compromised given difficulty positioning. No significant abnormality is noted within the visualized lung bases. No pneumatosis, free air or portal venous gas is present. There is mild gallbladder distention. There is no pericholecystic stranding. Unenhanced images of the liver, spleen, adrenal glands, kidneys and pancreas are unremarkable. There is no hydronephrosis. No evidence for a bowel obstruction. Presacral stranding is noted. There is colonic diverticulosis without evidence for acute diverticulitis. A Torres balloon within the bladder is noted as well as gas. There is no retroperitoneal hematoma. No hemoperitoneum is noted. Note is made of a partially visualized acute intramuscular hematoma within the left adductor musculature which measures at least 8.9 x 8.2 cm. Stranding within the left thigh and groin is noted. No acute fracture within the visualized skeletal structures is present. Asymmetric enlargement and subtle hyperdensity of the right internal iliac vein represents deep venous thrombus better depicted on contrast enhanced CT of December 26, 2021. Subcutaneous injection sites within the anterior abdominal wall are incidentally noted. IMPRESSION: 1. Partially visualized acute intramuscular hematoma within the left adductor musculature which measures at least 8.9 x 8.2 cm. This finding will be called/faxed to ordering provider at time of dictation. 2. No retroperitoneal hematoma. 3. Mild gallbladder distention. No pericholecystic stranding. 4. Redemonstration of deep venous thrombus within the right internal iliac vein, better depicted on CT of December 26, 2021. ACT 112: Negative or not required by law. Electronically signed by: Leonidas Sheffield M.D. 01/02/2022 11:10 AM PG Care Time/CCT Total # of Minutes Spent Total Time Spent with Patient: Total time spent is greater than 50% in coordination of care (as documented) at patient's floor/unit and/or counseling patient: Coding Level of Care Code 72838 Subseq Hosp Care Lvl 3 Diagnoses Acute blood loss anemia D62 Intramuscular hematoma T14.8XXA COVID-19 U07.1 Iliac DVT (deep venous thrombosis) I82.429 Type 2 diabetes mellitus E11.9 Colitis K52.9 Alzheimer's dementia G30.9; F02.80 Rhabdomyolysis due to COVID-19 U07.1; M62.82 Chronic renal failure, stage 3b N18.32 Acute metabolic encephalopathy G93.41 Urinary retention R33.9 UTI (urinary tract infection) N39.0
[2022-01-02] MEDS ORDERED: VANCOMYCIN CONSULT ACTIVE PRN (16:58)
[2022-01-02] MEDS ORDERED: VANCOMYCIN HCL 1,250 MG in SODIUM CHLORIDE 0.9% 250 ML IV STA (17:03)
--- NOTE | 2022-01-02 18:18 | Pharmacy Report ---
Pharmacy PK ABX Note - Date of Service January 02, 2022 - Assessment and Plan Assessment 81 year old F receiving Vancomycin for treatment of UTI. * Day #2 of abx therapy (received ceftriaxone 1 g on 01/01/22). * 24 hr Tmax of 37.7 C. No leukocytosis. Renal fxn stable. * GPCs growing in urine culture from 01/01/22. Awaiting final identification and sensitivities. Plan Vancomycin * Loading dose: 1250 mg IV x 1 * Maintenance dose: 750 mg IV every 12 hours * Regimen is predicted to achieve target AUC/CARSON of 400-600 mg/L.hr * No level will be ordered unless therapy is to extend beyond 48 hours. Pharmacy will continue to follow and will adjust dose/frequency as necessary. Thank you. Pharmacy has transitioned to AUC monitoring for vancomycin. AUC/CARSON is the preferred PK/PD target and is associated with decreased risk of nephrotoxicity compared to traditional trough targets.
[2022-01-02] MEDS: MELATONIN 3 MG TAB PO SCH (21:38)
[2022-01-03] MEDS ORDERED: ACETAMINOPHEN 1,000 MG/100 ML VIAL IV ONE (00:47)
[2022-01-03] MEDS: VANCOMYCIN HCL 750 MG in SODIUM CHLORIDE 0.9% 250 ML IV SCH ×2 (05:47→17:37)
[2022-01-03] MEDS ORDERED: ACETAMINOPHEN 1,000 MG/100 ML VIAL IV PRN (07:35)
[2022-01-03] MEDS: LANTUS PER UNIT CHARGE SQ SCH (07:44)
[2022-01-03] MEDS ORDERED: CARBOHYDRATES FOR HYPOGLYCEMIA PO PRN (08:15)
[2022-01-03] MEDS ORDERED: DEXTROSE 50% 50 ML SYRINGE IV PRN (08:15)
[2022-01-03] MEDS ORDERED: GLUCOSE 10 TAB/TUBE PO PRN (08:15)
[2022-01-03] MEDS ORDERED: GLUCAGON FOR INJ 1 MG VIAL IM PRN (08:15)
[2022-01-03] MEDS ORDERED: GLUCOSE 40% GEL 15 GM TUBE PO PRN (08:15)
[2022-01-03 08:36] LABS: Hematocrit (blood only) 22.7 % (34.1-44.9); Hemoglobin 7.5 g/dl (12.0-16.0); Mean Corpuscular Hemoglobin 29.6 pg (25.0-34.0); Mean Corpuscular Volume 89.7 fL (80.0-100.0); Mean Platelet Volume 9.9 fL (9.4-12.3); Platelet Count 264 K/uL (130-400); RDW Coefficient of Variation 13.4 % (11.5-14.5); RDW Standard Deviation 44.1 fL (36.4-46.3); Red Blood Count 2.53 M/uL (3.93-5.22); White Blood Count 9.09 K/ul (4.8-10.8)
[2022-01-03] MEDS: NSS + 20MEQ KCL 20 MEQ/1,000 ML BAG IV SCH (09:13)
[2022-01-03 10:34] LABS: BUN Creatinine Ratio 22.4 (10-20); Calcium 7.7 mg/dl (8.5-10.1); Creatinine Clr Calc Pharmacy 65.9 ml/min; Est GFR (African American) 100.2 ml/min; Est GFR (Non-African American) 86.4 ml/min; Magnesium 1.5 mg/dl (1.7-2.4); Potassium 3.7 mmol/L (3.5-5.1)
[2022-01-03 10:35] LABS: Creatinine Clr Calc Pharmacy 63.7 ml/min; Est GFR (African American) 99.1 ml/min; Est GFR (Non-African American) 85.5 ml/min
--- NOTE | 2022-01-03 11:28 | Palliative Care Consultation ---
Date of Consultation January 03, 2022 Assessment & Plan (1) Palliative care encounter: Met with at pt bedside. reviewed course of pt illness for past few months. overall she has been "ok" at home but slowly declining. her father had severe dementia and they tried to care for him at home but his behav issues became too violent and needed placement. patient herself was "in denial, she would not even admit she had dementia and she wouldn't say it out loud. So we never talked about it because she'd get angry and walk off." They have never had goals of care or code status talks because she refused. He states "she would never want to live on a machine, she never wanted that." We then discussed code status specifically: he shared that he had some discussions with primary team and had shared this information. We spoke specifically about code status in the hospital. Mr. Anglin states eh would not wan t her to on machines. he shared a story about another family member who could not accept his was dying and kept her on life support for weeks, Mr Anglin noted this was prolonging suffering and not bringing anyone back. We spoke about the effects of stress on advanced dementia patient as well as the impact of environmental change as well. we discussed how Aggressive medical treatment for residents with advanced dementia is often inappropriate for medical reasons, has a low rate of success, and can have negative outcomes that hasten functional decline and . ([place] [employer] Ethics Committee and Clinical Practice and Models of Care Committee. J Am Geriatr Soc. 2014 Aug;62(8):1590-3 and Chago SL, Veena JM, Hong SC, Kenneth V. A national study of the location of for older persons with dementia. J Am Geriatr Soc 2005; 53(2):299-305.) We spoke about the changes he has been seeing: she is able to eat but appetite will change. She is drooling more when asleep and seems to have some more weakness in upper neck/jaw. We talked about how with progressive dementia you can see an eventual voluntary refusal of food and liquids and does not result in discomfort. The typical reaction to decreasing oral intake in advanced/end stage dementia may often be recommendation for feeding tubes however evidence based medicine shows us that tube feeding in residents with advanced dementia does not increase survival, nor does it not prevent aspiration pneumonia, malnutrition or pressure ulcers. It does not reduce the risk of infections or improve functional status or comfort of the patient. (from: Kevin LM, Lucy T Percutaneous endoscopic gastrostomy does not prolong survival in patients with dementia. Arch Optometric Assistant Med 2003; 163(11):4592-8123 AND Sylvain DE, Arnel PRASHANTH, Messi J, Isabella Beverly S, Abiodun RS. High short-term mortality in hospitalized patients with advanced dementia - Lack of benefit of tube feeding. Arch Optometric Assistant Med 2001; 161(4):594-599.) Simple strategies involving hands-on care by well-trained staff such as massage, oral hygiene, changes in diet, and hand-feeding can prevent infection and manage feeding problems without resort to tube-feeding. Hand feeding can be provided until the beginning of the dying process when all physiological processes shutdown, note that cognitively intact cancer patients indicate that dying residents do not feel hunger and thirst. Mr. Anglin does not want pt to go through prolonged life support and would want her to have a natural BUT he wants to be clear that he still wants things treated if he can make reasonable recovery to come back home, because he feels she still has good QOL at home with family. Code status will be DNR/DNI but I have advised waiting until AFTER the OR to change this, primary team notified. (2) Quality of life palliative care encounter: For dispo planning: Mr. Anglin is agreeable to home health and home based PT but he is very clear he will not allow SNF placement. Dementia patients do best in their familiar settings with known caregivers who do not rotate or change, th erefore this is a reasonable plan. I will defer to primary team and care mgt for coordinating this post dc but I suggest either an intensive home health program or a transitional care program, both with addition of home based PT. We did briefly discuss hospice and what is covers/services provided. I do not believe Mrs Anglin is hospice appropriate at this time. Her FAST score is not hospice eligible. (3) Dementia: See above discussions (4) COVID-19: Resolving, no resp distress (5) Agitation due to dementia: Managed with Zyprexa, recc continuing same (6) Dehydration: Managed by primary team (7) Generalized weakness: (8) Generalized abdominal pain: (9) Iliac DVT (deep venous thrombosis): History of Present Illness Reason for Consultation: "GOC Discussion" Requesting Physician: Shirin Attending Physician: Adele Ely MD History of Present Illness 81 yo female admitted 12/28/21 with further complication from 12/19/21 admission, new DVT, fall, worsening dementia, diarrhea, poor oral intake, growing weakness. Found to be COVID positive, and it is noted had been diagnosed with COVID in days prior to patient. Pt admitted, found to have rhabdo attributed to covid, new hematoma and DVT requiring IVC which is scheduled for today, time TBD. Due to her dementia, she is not able to engage in discussions re GOC. her is at the bedside. he is slowly recovering from COVID but denies acute symptoms at this time. he states that at home pt was ambulatory and easily directed for personal care needs/could still toilet herself/was not incontinent until the recent acute illnesses with colitis then diarrhea/weakness/COVID. He states she is not that verbal but could make her needs known. She was easily redirected but does not stay focused. She knows her most of the time but has trouble with other people. patient is cared for at home by her and 3 of their 4 adult children who live within 5 miles. Their son lives next door and a daughter in 2 miles away. They come by daily to help care for pt. does not feel he is having major problems caring for patient but notes she does need Zyprexa 4 times daily. Allergies Allergy/AdvReac Type Severity Reaction Status Date / Time amoxicillin Allergy Unknown blisters Verified 12/28/21 18:38 clavulanic acid Allergy Unknown blisters Verified 12/28/21 18:38 Home Medications Medication Instructions Recorded Confirmed Type metoprolol succinate 25 mg 25 mg PO DAILY 12/19/21 12/28/21 History tablet,extended release 24 hr olanzapine 5 mg tablet (Zyprexa) 5 mg PO QID 12/19/21 12/28/21 History enoxaparin 80 mg/0.8 mL 80 mg (0.8 mL) subcut DAILY #8 mL 12/26/21 12/28/21 Rx subcutaneous syringe (Lovenox) nirmatrelvir 300 mg (150 mg See Rx Instructions PO .COMPLEX 12/26/21 12/28/21 Rx x2)-ritonavir 100 mg tablet,dose #30 tabs pack(EUA) (Paxlovid) aspirin 81 mg tablet,delayed 81 mg PO DAILY 12/28/21 12/28/21 History release calcium carbonate 500 mg-vitamin 1 tab PO DAILY 12/28/21 12/28/21 History D3 10 mcg (400 unit) tablet lorazepam 0.5 mg tablet 0.5 mg PO DAILY PRN Anxiety 12/28/21 12/28/21 History multivitamin 1 tab PO DAILY 12/28/21 12/28/21 History omega 0-msm-ivc-fish oil 1,000 mg 1 cap PO DAILY 12/28/21 12/28/21 History (120 mg-180 mg) capsule (Fish Oil) trazodone 50 mg tablet 50 mg PO HS PRN Sleep 12/28/21 12/28/21 History vitamin E 268 mg (400 unit) capsule 268 mg PO DAILY 12/28/21 12/28/21 History Patient History Medical History Alzheimer's dementia Colitis COVID-19 Iliac DVT (deep venous thrombosis) Type 2 diabetes mellitus Surgical History H/O umbilical hernia repair Family History Father Dementia Mother Cancer Social History Smoking Status: Former smoker Tobacco Type: Cigarettes Smoking End Date: 1949s; smoked briefly at that time; Hx Alcohol Use: No Hx Substance Use: No Preferred Language: Mongolian Communication Ability: Unable Armhole Sewer Required: No Beliefs That Will Affect Care: None marital status: Current Living Situation: Spouse Current Living Situation Comment: lives in [place] with current occupation: was a beWrapMailician How many Children do You have: 4 How many Children do You have Comment: 1 child is Other Information That Helps Us Care for You: No Feels Safe at Home: Yes Safety Concerns: Feels Safe At This Time Assistive Devices: Cane, Glasses and Walker Review of Systems Review of Systems: Unable to Obtain/pt has advanced dementia Physical Exam Physical Exam: Limited exam, pt is very agitated and crying out, hands in mittens bilaterally, she is swinging them about a bit and crying out, her face is in a grimace and she appears distressed. at bedside, engaged in trying to soothe her. She does not appear to be in any resp distress, there is no use of accessory muscles, no stridor or wheezing. There are no audible wheezes noted. There is no JVD. NCAT but there is some bitemporal wasting noted. PERRLA. Dentition fair. Pharynx pink but slightly dry. Chest rise is symmetric, S1S2 noted. Abd soft, no rebound or guarding, BS+.Faint ecchymoses from prior Lovenox. Boyd noted. Her right thigh is more swollen than left but pulses are present equally. There is no gross erythema. Neurologically she is awake at times but not alert to person, place or time. She is confused and agitated, she is unable to follow commands and she is no verbally interactive. Results & Data ([facility]) Vital Signs (Past 12 Hours) Vital Signs Temp Pulse Pulse Resp BP BP Pulse Ox 01/03/22 07:00 01/03/22 07:53 36.4 C L 84 20 108/66 99 01/03/22 01:54 38.6 C H 01/03/22 00:29 38.8 C H 01/02/22 23:48 39.2 C H 109 H 18 106/56 L 96 O2 Del Method 01/03/22 07:00 Room Air 01/03/22 07:53 Room Air 01/03/22 01:54 01/03/22 00:29 01/02/22 23:48 Room Air Diagnostic Findings Labs and imaging reviewed Results CMP Results: Na 138 mmol/L (136-145) 01/03/22 K 3.7 mmol/L (3.5-5.1) 01/03/22 Cl 108 mmol/L (98-107) H 01/03/22 CO2 26 mmol/L (21-32) 01/03/22 Anion Gap 4 (3-11) 01/03/22 BUN 13 mg/dl (6-23) 01/03/22 Creatinine 0.60 mg/dl (0.6-1.2) 01/03/22 Estimated GFR ( Amer) 99.1 ml/min 01/03/22 Estimated GFR (Non-Af Amer) 85.5 ml/min 01/03/22 BUN/Creatinine Ratio 22.4 (10-20) H 01/03/22 Glu 165 mg/dl (70-99(Fasting)) H 01/03/22 Ca 7.7 mg/dl (8.5-10.1) L 01/03/22 Total Bilirubin 0.5 mg/dl (0.2-1.0) 12/28/21 Direct Bilirubin 0.1 mg/dl (0-0.2) 12/26/21 AST 30 U/L (13-39) 01/02/22 ALT 28 U/L (7-52) 01/02/22 Alkaline Phosphatase 59 U/L (34-104) 12/28/21 TP 6.0 gm/dl (6.0-8.3) 12/28/21 Albumin 3.5 gm/dl (3.4-5.0) 12/28/21 Globulin 2.5 gm/dl (2.5-4.0) 12/28/21 Albumin/Globulin Ratio 1.4 (0.9-2) 12/28/21 Results CBC w Diff Results: RBC 2.53 M/uL (3.93-5.22) L 01/03/22 WBC 9.09 K/ul (4.8-10.8) 01/03/22 Hgb 7.5 g/dl (12.0-16.0) L 01/03/22 Hct 22.7 % (34.1-44.9) L 01/03/22 MCV 89.7 fL (80.0-100.0) 01/03/22 MCH 29.6 pg (25.0-34.0) 01/03/22 MCHC 33.0 g/dL (32.0-36.0) 01/03/22 RDW Standard Deviation 44.1 fL (36.4-46.3) 01/03/22 RDW Coefficient of Variation 13.4 % (11.5-14.5) 01/03/22 Plt Count 264 K/uL (130-400) 01/03/22 MPV 9.9 fL (9.4-12.3) 01/03/22 Neutrophils (%) (Auto) 68.7 % 01/02/22 Lymphocytes (%) (Auto) 20.2 % 01/02/22 Monocytes # (Auto) 0.55 K/uL (0.24-0.82) 01/02/22 Eosinophils # (Auto) 0.02 K/uL (0-0.50) 01/02/22 Immature Granulocyte % (Auto) 0.5 % 01/02/22 Neutrophils # (Auto) 3.78 K/uL (1.4-6.5) 01/02/22 Lymphocytes # (Auto) 1.11 K/uL (1.2-3.4) L 01/02/22 Monocytes # (Auto) 0.55 K/uL (0.24-0.82) 01/02/22 Eosinophils # (Auto) 0.02 K/uL (0-0.50) 01/02/22 Basophils # (Auto) 0.01 K/uL (0-0.2) 01/02/22 Immature Granulocyte # (Auto) 0.03 K/uL (0.00-0.02) H 01/02 Results COVID-19 Adm Lab Results: RBC 2.53 M/uL (3.93-5.22) L 01/03/22 WBC 9.09 K/ul (4.8-10.8) 01/03/22 Hgb 7.5 g/dl (12.0-16.0) L 01/03/22 Hct 22.7 % (34.1-44.9) L 01/03/22 Plt Count 264 K/uL (130-400) 01/03/22 Neutrophils (%) (Auto) 68.7 % 01/02/22 Lymphocytes (%) (Auto) 20.2 % 01/02/22 Monocytes # (Auto) 0.55 K/uL (0.24-0.82) 01/02/22 Eosinophils # (Auto) 0.02 K/uL (0-0.50) 01/02/22 Immature Granulocyte % (Auto) 0.5 % 01/02/22 Neutrophils # (Auto) 3.78 K/uL (1.4-6.5) 01/02/22 Lymphocytes # (Auto) 1.11 K/uL (1.2-3.4) L 01/02/22 Monocytes # (Auto) 0.55 K/uL (0.24-0.82) 01/02/22 Eosinophils # (Auto) 0.02 K/uL (0-0.50) 01/02/22 Basophils # (Auto) 0.01 K/uL (0-0.2) 01/02/22 Immature Granulocyte # (Auto) 0.03 K/uL (0.00-0.02) H 01/02 Na 138 mmol/L (136-145) 01/03/22 K 3.7 mmol/L (3.5-5.1) 01/03/22 Cl 108 mmol/L (98-107) H 01/03/22 CO2 26 mmol/L (21-32) 01/03/22 Anion Gap 4 (3-11) 01/03/22 BUN 13 mg/dl (6-23) 01/03/22 Creatinine 0.60 mg/dl (0.6-1.2) 01/03/22 BUN/Creatinine Ratio 22.4 (10-20) H 01/03/22 Glucose Level 165 mg/dl (70-99(Fasting)) H 01/03/22 Ca 7.7 mg/dl (8.5-10.1) L 01/03/22 Total Bilirubin 0.5 mg/dl (0.2-1.0) 12/28/21 AST/SGOT 30 U/L (13-39) 01/02/22 ALT/SGPT 28 U/L (7-52) 01/02/22 Alkaline Phosphatase 59 U/L (34-104) 12/28/21 Total Protein 6.0 gm/dl (6.0-8.3) 12/28/21 Albumin 3.5 gm/dl (3.4-5.0) 12/28/21 Globulin 2.5 gm/dl (2.5-4.0) 12/28/21 Albumin/Globulin Ratio 1.4 (0.9-2) 12/28/21 Total CK 450 U/L (26-192) H 01/01/22 INR 1.1 (0.9-1.1) 12/28/21 SARS-CoV-2, RNA, NAAT POSITIVE (NEGATIVE) A* 12/28/21 Chest X-Ray 12/28/21 PG Care Time/CCT Total # of Minutes Spent Total Time Spent: 60 Total Time Spent with Patient: Total time spent is greater than 50% in coordination of care (as documented) at patient's floor/unit and/or counseling patient: [place] [address] Inpt Consult Level 4 Patient Type New History Comprehensive Exam Detailed Medical Decision Making Moderate Complexity Diagnoses Palliative care encounter Z51.5 Quality of life palliative care encounter Z51.5 Dementia F03.90 COVID-19 U07.1 Agitation due to dementia F03.911 Dehydration E86.0 Generalized weakness R53.1 Generalized abdominal pain R10.84 Iliac DVT (deep venous thrombosis) I82.429 Time Spent (min) 60
[2022-01-03] MEDS: OLANZapine 5 MG TABLET PO SCH (12:00)
[2022-01-03] MEDS ORDERED: fentaNYL citrate 100 MCG/2 ML VIAL ONE (13:37)
[2022-01-03] MEDS ORDERED: MIDAZOLAM HCL 1 MG/ML 2ML VIAL ONE (13:37)
--- NOTE | 2022-01-03 13:52 | Consultation ---
Date of Consultation January 03, 2022 Assessment & Plan (1) Iliac DVT (deep venous thrombosis): Pt with iliac vein DVT and thigh hematoma after starting lovenox, with hgb 7.5 today. AC has been stopped d/t bleeding risk. Recommend IVC filter insertion today by Dr Rich. Procedure discussed with pt , he is agreeable. History of Present Illness Reason for Consultation: DVT, hematoma Attending Physician: Adele Ely MD History of Present Illness 81 yo f with hx of dementia, CKD, DMII, admitted with COVID-19, iliac vein thrombus, and thigh hematoma, seen in consultation today for placement of IVC filter. Pt nonverbal d/t alzheimer's dementia. present, states ptnever had DVT prior to this. Developed some leg edema and pain, and sought medical attention. Was started on Lovenox, was d/c, then returned with thigh hematoma. Pt unable to answer questions. Allergies Allergy/AdvReac Type Severity Reaction Status Date / Time amoxicillin Allergy Unknown blisters Verified 12/28/21 18:38 clavulanic acid Allergy Unknown blisters Verified 12/28/21 18:38 Home Medications Medication Instructions Recorded Confirmed Type metoprolol succinate 25 mg 25 mg PO DAILY 12/19/21 12/28/21 History tablet,extended release 24 hr olanzapine 5 mg tablet (Zyprexa) 5 mg PO QID 12/19/21 12/28/21 History enoxaparin 80 mg/0.8 mL 80 mg (0.8 mL) subcut DAILY #8 mL 12/26/21 12/28/21 Rx subcutaneous syringe (Lovenox) nirmatrelvir 300 mg (150 mg See Rx Instructions PO .COMPLEX 12/26/21 12/28/21 Rx x2)-ritonavir 100 mg tablet,dose #30 tabs pack(EUA) (Paxlovid) aspirin 81 mg tablet,delayed 81 mg PO DAILY 12/28/21 12/28/21 History release calcium carbonate 500 mg-vitamin 1 tab PO DAILY 12/28/21 12/28/21 History D3 10 mcg (400 unit) tablet lorazepam 0.5 mg tablet 0.5 mg PO DAILY PRN Anxiety 12/28/21 12/28/21 History multivitamin 1 tab PO DAILY 12/28/21 12/28/21 History omega 7-nnt-rvw-fish oil 1,000 mg 1 cap PO DAILY 12/28/21 12/28/21 History (120 mg-180 mg) capsule (Fish Oil) trazodone 50 mg tablet 50 mg PO HS PRN Sleep 12/28/21 12/28/21 History vitamin E 268 mg (400 unit) capsule 268 mg PO DAILY 12/28/21 12/28/21 History Patient History Medical History Alzheimer's dementia Colitis COVID-19 Iliac DVT (deep venous thrombosis) Type 2 diabetes mellitus Surgical History H/O umbilical hernia repair Family History Father Dementia Mother Cancer Social History Smoking Status: Former smoker Tobacco Type: Cigarettes Smoking End Date: ; smoked briefly at that time; Hx Alcohol Use: No Hx Substance Use: Yes Preferred Language: Tamazight Communication Ability: Unable Data Center Manager Required: No Beliefs That Will Affect Care: None marital status: Current Living Situation: Spouse Current Living Situation Comment: lives in [place] 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 How many Children do You have: 4 How many Children do You have Comment: 1 child is Other Information That Helps Us Care for You: No Feels Safe at Home: Yes Safety Concerns: Feels Safe At This Time Assistive Devices: Cane, Glasses and Walker Review of Systems Review of Systems: Unobtainable due to cognitive status Physical Exam Constitutional: + ill appearing (chronically), + thin and + frail appearing Neck: trachea midline Respiratory: Auscultation: lungs clear to auscultation bilaterally and + diminished lung sounds Cardiovascular: Rate/Rhythm: regular rate and regular rhythm Vessels: posterior tibial pulses present, dorsalis pedis pulses present and radial pulses present; + abnormal peripheral pulses Extremities: normal capillary refill and + edema (mild) Gastrointestinal (Abdomen): Inspection/Auscultation: abdomen normal to inspection and normal bowel sounds Percussion/Palpation: abdomen soft Skin: no rashes, warm and dry Neurologic: awake (agitated, soft gloves on hands, unable to follow commands) Psychiatric: Orientation: + not alert and + not oriented x 3 Eye Contact: + poor eye contact Motor Behavior: + psychomotor agitation Results & Data ([facility]) Vital Signs (Past 12 Hours) Vital Signs Temp Pulse Resp BP BP Pulse Ox O2 Del Method 01/03/22 11:41 36.7 C 92 H 20 106/63 96 Room Air 01/03/22 07:00 Room Air 01/03/22 07:53 36.4 C L 84 20 108/66 99 Room Air 01/03/22 01:54 38.6 C H
--- NOTE | 2022-01-03 14:33 | Operative Report ---
Post Operative Report Pre & Post Diagnosis Operation Date: 01/03/22 08:20 Pre op Dx: Deep venous thrombosis with contraindication for anticoagulation Post op Dx: Deep venous thrombosis with contraindication for anticoagulation I identified the patient and participated in the time-out.: Yes Procedure Operation Date: 01/03/22 08:20 <Insertion of vena cava filter, femoral approach Fluoroscopy for positioning Surgeon Gregorio Rich MD Jewelry Appraiser none Estimated Blood Loss 0 Findings Consistent with Post-Op Diagnosis Specimens none Anesthesia Type Local Complications none Disposition Accompanied Patient To Recovery: No Disposition: Recovery Room Indications This patient is 81-year-old female with severe dementia. She was found to have a deep venous thrombosis of the right internal iliac vein. She was anticoagulated with heparin and subsequently developed a thigh bleed. The heparin had to be stopped due to the bleeding. Vena cava filter was recommended. Her understood the risks options and benefits and agreed to go ahead with this procedure. Description of Procedure The patient was brought to the angio suite and placed in the supine position. The left groin was prepped and draped in the usual fashion. The patient was identified and a timeout performed. Local anesthesia was administered to the left groin. The left common femoral vein was then punctured. A guidewire was then passed centrally into the inferior vena cava under fluoroscopic guidance. The puncture site was then dilated and the filter sheath inserted. It was passed to the infra renal vena cava. A venacavagram was done which showed no cava clot and an acceptable size. The renal veins were identified. The filter was then passed through the sheath and deployed in the infra renal vena cava in an upright position. Satisfied with the positioning of the filter, the sheath was removed. Pressure was applied to the puncture site. Adequate hemostasis was obtained and a sterile dressing was applied. The patient left the operation room in satisfactory condition and tolerated the procedure well. All needle and sponge counts were correct at the end of the procedure. I attest to the content of the Intraoperative Record and any orders documented therein. Any exceptions are noted below.
[2022-01-03] MEDS ORDERED: LIDOCAINE 1% LOCAL 20 ML VIAL INJ ONE (14:40)
[2022-01-03] MEDS ORDERED: VISIPAQUE IV PRN (14:40)
[2022-01-03] MEDS: OLANZapine 10 MG TAB PO SCH (19:30)
[2022-01-03] MEDS: MELATONIN 3 MG TAB PO SCH (19:30)
[2022-01-03] MEDS: MAGNESIUM SULFATE / D5W 1 GM/100 ML BAG IV SCH ×2 (19:41→21:16)
--- NOTE | 2022-01-03 19:43 | Hospitalist Progress Note ---
Date of Service January 03, 2022 Assessment & Plan (1) Acute blood loss anemia: Plan: 2nd to IM hematoma STOPPED lovenox. Hgb dropped to 7.5 today but remains HD stable so no transfusion indicated now s/p IVC filter. follow CBC In AM gives verbal consent for PRBC transfusion if needed but could consider IV iron if no transfusion indicated (2) Intramuscular hematoma: Plan: LEFT adductor musculature. As seen on CT and on exam. Suspect she probably had muscular injury in the left thigh from trauma from her prior fall on 12/26/21. Once on therapeutic lovenox any pre-existing scant bruising probably then bled. STOPPED lovenox. Follow H/H's. The bleeding should tamponade once lovenox works out of her system. She has not had any aspirin since admission (was on such at home). (3) COVID-19: Plan: s/p 5-day course of Remdesivir completed. CTA chest day of admission with mild "pulm edema" but suspect these were pulmonary infiltrates / pneumonia. Dexamethasone was deferred -- o2 sats stable and her pulmonary status has been fine since admission. COVID-induced rhabdomyolysis and traumatic rhabdo resolved with IV fluids. cont supportive care. PT, OT when able. overall has done poorly on multiple levels (4) Iliac DVT (deep venous thrombosis): Plan: seen on CT abd/pelvis on 12/26. had been started on lovenox at that time in ER and d/c home. upon admission on 12/28 lovenox was continued. CTA chest without PEs. formal Doppler RLE negative for DVT. I assume that her DVT was COVID-related from hypercoagulable state plus had recent hospitalization for colitis unfortunately has developed hematoma and anticoagulation stopped Appreciate Vascular surgery consult-now s/p IVC filter on 01/03. (5) Type 2 diabetes mellitus: Plan: new diagnosis made during prior hospital stay earlier this month with HbA1C >8%. DM diet. BSGs mildly high. continue lantus 5 units daily. (6) Alzheimer's dementia: Plan: advanced. ongoing acute delirium while here in setting of her illness. takes olanzapine 5mg QID. unusual dosing regimen but confirms this is how she takes it at home. she required IM haldol 2 days in a row despite the large dose of baseline zyprexa. psych recommended changing the zyprexa to 10mg BID - dose at noon, and dose at bedtime. unfortunately the 10mg dose at noon today made her lethargic thus cut back the noon dose to 5mg. (7) Rhabdomyolysis due to COVID-19: Plan: Peak CPK 1910. Had a reported fall on 12/26. Rhabdomyolysis likely due to COVID infection itself and the fall. last CPK down <500. mild elevation in AST was likely due to rhabdomyolysis. AST now normal. Cont fluids. (8) Chronic renal failure, stage 3b: Plan: baseline CrCl 30-45 repeat BMP am (9) Acute metabolic encephalopathy: Plan: 2nd to COVID infection, hospital psychosis, UTI, etc. this is in the setting of advanced dementia see above RE: zyprexa soft mitts restraints due to constant pulling out IVs, pulling at torres, etc cont melatonin HS (10) Urinary retention: Plan: likely 2nd to UTI s/p torres placement treat the UTI (11) UTI (urinary tract infection): Plan: had been on rocephin, but is growing Enterococcus and had fevers last night check BCxs changed rocephin to IV vanco on 01/02 (12) Hypomagnesemia: Plan: replace with IV magnesium and check level in AM (13) Colitis: Plan: as seen on CT earlier this month. radiographically resolved on 12/26 CT and clinically resolved. ischemic? infectious? regardless of etiology - resolved. Plan updated at bedside today Appreciate palliative discussion-change to DNR/DNI but goal still to get her better and home again Admission and Anticipated Discharge Date Admission Date: December 28, 2021 Subjective Pt had IVC filter today. SHe is confused, restless, unable to answer any questions with meaningful answers. at bedside said she is just about at her baseline mentation. He states he can understand what she wants but not many others can. Discussed possibility of needing a blood transfusion with and he is agreeable with verbal consent obtained if needed Review of Systems Review of Systems: Unobtainable due to cognitive status Physical Exam Physical Exam: gen - thin, awake, restless heart - RRR, s1 s2, no murmur lungs - CTA b/l; no rales abd - soft NT ND BS+; no HSM ext - pulses 2+ b/l, soft mitts in place musculo/skin - blotchy ecchymoses in the L groin and medial thigh; there is notable swelling and slight warmth in the proximal thigh, now with dressing in place left femoral site Results & Data Results & Data ([facility]) Vital Signs (Past 12 Hours) Vital Signs Temp Pulse Pulse Resp BP BP Pulse Ox 01/03/22 14:35 36.6 C 95 H 14 126/72 97 01/03/22 14:25 93 H 18 127/78 98 01/03/22 14:20 93 H 18 124/71 100 01/03/22 14:15 100 H 18 144/68 H 100 01/03/22 11:41 36.7 C 92 H 20 106/63 96 01/03/22 07:53 36.4 C L 84 20 108/66 99 O2 Del Method O2 Flow Rate 01/03/22 14:35 Room Air 01/03/22 14:25 Room Air 01/03/22 14:20 Oxymask 4 01/03/22 14:15 Oxymask 4 01/03/22 11:41 Room Air 01/03/22 07:53 Room Air Laboratory Results labs reviewed PG Care Time/CCT Total # of Minutes Spent Total Time Spent with Patient: Total time spent is greater than 50% in coordination of care (as documented) at patient's floor/unit and/or counseling patient: Coding Level of Care Code 70340 Subseq Hosp Care Lvl 2 Diagnoses Acute blood loss anemia D62 Intramuscular hematoma T14.8XXA COVID-19 U07.1 Iliac DVT (deep venous thrombosis) I82.429 Type 2 diabetes mellitus E11.9 Alzheimer's dementia G30.9; F02.80 Rhabdomyolysis due to COVID-19 U07.1; M62.82 Chronic renal failure, stage 3b N18.32 Acute metabolic encephalopathy G93.41 Urinary retention R33.9 UTI (urinary tract infection) N39.0 Hypomagnesemia E83.42 Colitis K52.9
[2022-01-04] MEDS: NSS + 20MEQ KCL 20 MEQ/1,000 ML BAG IV SCH (05:48)
[2022-01-04] MEDS: VANCOMYCIN HCL 750 MG in SODIUM CHLORIDE 0.9% 250 ML IV SCH ×2 (05:53→18:04)
[2022-01-04 07:36] LABS: Hematocrit (blood only) 22.9 % (34.1-44.9); Hemoglobin 7.8 g/dl (12.0-16.0); Mean Corpuscular Hgb Conc 34.1 g/dL (32.0-36.0); Mean Corpuscular Volume 88.1 fL (80.0-100.0); Mean Platelet Volume 9.9 fL (9.4-12.3); Platelet Count 318 K/uL (130-400); RDW Coefficient of Variation 13.7 % (11.5-14.5); RDW Standard Deviation 44.3 fL (36.4-46.3); White Blood Count 7.63 K/ul (4.8-10.8)
[2022-01-04 08:02] LABS: Creatinine Clr Calc Pharmacy 70.8 ml/min; Est GFR (African American) 102.6 ml/min; Est GFR (Non-African American) 88.5 ml/min
[2022-01-04] MEDS ORDERED: IRON SUCROSE 300 MG in SODIUM CHLORIDE 0.9% 250 ML IV ONE (08:30)
[2022-01-04] MEDS: LANTUS PER UNIT CHARGE SQ SCH (09:17)
[2022-01-04 10:18] LABS: BUN Creatinine Ratio 21.4 (10-20); Calcium 7.6 mg/dl (8.5-10.1); Creatinine Clr Calc Pharmacy 68.3 ml/min; Est GFR (African American) 101.3 ml/min; Est GFR (Non-African American) 87.4 ml/min; Magnesium 1.9 mg/dl (1.7-2.4); Potassium 3.7 mmol/L (3.5-5.1)
[2022-01-04] MEDS: OLANZapine 5 MG TABLET PO SCH (12:27)
--- NOTE | 2022-01-04 19:48 | Hospitalist Progress Note ---
Date of Service January 04, 2022 Assessment & Plan (1) Acute blood loss anemia: Plan: 2nd to IM hematoma STOPPED lovenox. Hgb dropped to 7.5 but up to 7.8 today but remains HD stable so no transfusion indicated will give Venofer today and tomorrow now s/p IVC filter. follow CBC In AM gives verbal consent for PRBC transfusion if needed but could consider IV iron if no transfusion indicated (2) Intramuscular hematoma: Plan: LEFT adductor musculature. As seen on CT and on exam. Suspect she probably had muscular injury in the left thigh from trauma from her prior fall on 12/26/21. Once on therapeutic lovenox any pre-existing scant bruising probably then bled. STOPPED lovenox. Follow H/H's. The bleeding should tamponade once lovenox works out of her system. She has not had any aspirin since admission (was on such at home). (3) COVID-19: Plan: s/p 5-day course of Remdesivir completed. CTA chest day of admission with mild "pulm edema" but suspect these were pulmonary infiltrates / pneumonia. Dexamethasone was deferred -- o2 sats stable and her pulmonary status has been fine since admission. COVID-induced rhabdomyolysis and traumatic rhabdo resolved with IV fluids. cont supportive care. PT, OT when able. overall has done poorly on multiple levels (4) Iliac DVT (deep venous thrombosis): Plan: seen on CT abd/pelvis on 12/26. had been started on lovenox at that time in ER and d/c home. upon admission on 12/28 lovenox was continued. CTA chest without PEs. formal Doppler RLE negative for DVT. I assume that her DVT was COVID-related from hypercoagulable state plus had recent hospitalization for colitis unfortunately has developed hematoma and anticoagulation stopped Appreciate Vascular surgery consult-now s/p IVC filter on 01/03. (5) Type 2 diabetes mellitus: Plan: new diagnosis made during prior hospital stay earlier this month with HbA1C >8%. DM diet. BSGs mildly high. continue lantus 5 units daily. (6) Alzheimer's dementia: Plan: advanced. ongoing acute delirium while here in setting of her illness. takes olanzapine 5mg QID. unusual dosing regimen but confirms this is how she takes it at home. she required IM haldol 2 days in a row despite the large dose of baseline zyprexa. psych recommended changing the zyprexa to 10mg BID - dose at noon, and dose at bedtime. unfortunately the 10mg dose at noon today made her lethargic thus cut back the noon dose to 5mg. (7) Rhabdomyolysis due to COVID-19: Plan: Peak CPK 1911. Had a reported fall on 12/26. Rhabdomyolysis likely due to COVID infection itself and the fall. last CPK down <500. mild elevation in AST was likely due to rhabdomyolysis. AST now normal. will dc IVFs (8) Chronic renal failure, stage 3b: Plan: baseline CrCl 30-45 repeat BMP am (9) Acute metabolic encephalopathy: Plan: 2nd to COVID infection, hospital psychosis, UTI, etc. this is in the setting of advanced dementia see above RE: zyprexa soft mitts restraints due to constant pulling out IVs, pulling at torres, etc cont melatonin HS (10) Urinary retention: Plan: likely 2nd to UTI s/p torres placement treat the UTI (11) UTI (urinary tract infection): Plan: had been on rocephin, but is growing Enterococcus and had fevers on evening of 01/02-now resolved check BCxs-NGTD changed rocephin to IV vanco on 01/02 reports allergy to Augmentin 25 years ago but has had amoxicillin on many occasions since that time without any problems-will switch to amox tomrorow (12) Hypomagnesemia: Plan: replaced and resolved (13) Colitis: Plan: as seen on CT earlier this month. radiographically resolved on 12/26 CT and clinically resolved. ischemic? infectious? regardless of etiology - resolved. Plan updated at bedside today Appreciate palliative discussion-change to DNR/DNI but goal still to get her better and home again Dispo-possible dc to home in 1-2 days if no further fevers and no bacteremia Admission and Anticipated Discharge Date Admission Date: December 28, 2021 Subjective Pt much improved today, less agitation, ate most of her meals as per , remains confused, not able to give me a history but is awake and alert. Review of Systems Review of Systems: Unobtainable due to cognitive status Physical Exam Physical Exam: gen - thin, awake, restless with hands/arms but not as much as previous heart - RRR, s1 s2, no murmur lungs - CTA b/l; no rales abd - soft NT ND BS+; no HSM ext - pulses 2+ b/l, soft mitts in place musculo/skin - blotchy ecchymoses in the L groin and medial thigh; there is notable swelling and slight warmth in the proximal thigh, now with dressing in place left femoral site Results & Data Results & Data ([facility]) Vital Signs (Past 12 Hours) Vital Signs Temp Pulse Resp BP Pulse Ox O2 Del Method 01/04/22 15:06 36.6 C 95 H 20 135/72 95 Room Air 01/04/22 08:00 36.6 C 113 H 18 129/74 96 Room Air Laboratory Results 01/04/22 01/04/22 01/04/22 Range/Units 17:01 12:00 07:47 WBC (4.8-10.8) K/ul RBC (3.93-5.22) M/uL Hgb (12.0-16.0) g/dl Hct (34.1-44.9) % MCV (80.0-100.0) fL MCH (25.0-34.0) pg MCHC (32.0-36.0) g/dL RDW Std Deviation (36.4-46.3) fL RDW Coeff of Dash (11.5-14.5) % Plt Count (130-400) K/uL MPV (9.4-12.3) fL Sodium (136-145) mmol/L Potassium (3.5-5.1) mmol/L Chloride (98-107) mmol/L Carbon Dioxide (21-32) mmol/L Anion Gap (3-11) BUN (6-23) mg/dl Creatinine (0.6-1.2) mg/dl Est Cr Clr Drug Dosing ml/min Est GFR ( Amer) ml/min Est GFR (Non-Af Amer) ml/min BUN/Creatinine Ratio (10-20) Glucose (70-99(Fasting)) mg/dl POC Glucose 202 H 173 H 169 H (70-99) mg/dl Calcium (8.5-10.1) mg/dl Magnesium (1.7-2.4) mg/dl 01/04/22 01/04/22 01/04/22 Range/Units 07:05 07:03 07:03 WBC 7.63 (4.8-10.8) K/ul RBC 2.60 L (3.93-5.22) M/uL Hgb 7.8 L (12.0-16.0) g/dl Hct 22.9 L (34.1-44.9) % MCV 88.1 (80.0-100.0) fL MCH 30.0 (25.0-34.0) pg MCHC 34.1 (32.0-36.0) g/dL RDW Std Deviation 44.3 (36.4-46.3) fL RDW Coeff of Dash 13.7 (11.5-14.5) % Plt Count 318 (130-400) K/uL MPV 9.9 (9.4-12.3) fL Sodium 140 (136-145) mmol/L Potassium 3.7 (3.5-5.1) mmol/L Chloride 107 (98-107) mmol/L Carbon Dioxide 23 (21-32) mmol/L Anion Gap 10 (3-11) BUN 12 (6-23) mg/dl Creatinine 0.56 L 0.54 L (0.6-1.2) mg/dl Est Cr Clr Drug Dosing 68.3 70.8 ml/min Est GFR ( Amer) 101.3 102.6 ml/min Est GFR (Non-Af Amer) 87.4 88.5 ml/min BUN/Creatinine Ratio 21.4 H (10-20) Glucose 145 H (70-99(Fasting)) mg/dl POC Glucose (70-99) mg/dl Calcium 7.6 L (8.5-10.1) mg/dl Magnesium 1.9 (1.7-2.4) mg/dl 01/03/22 Range/Units 20:19 WBC (4.8-10.8) K/ul RBC (3.93-5.22) M/uL Hgb (12.0-16.0) g/dl Hct (34.1-44.9) % MCV (80.0-100.0) fL MCH (25.0-34.0) pg MCHC (32.0-36.0) g/dL RDW Std Deviation (36.4-46.3) fL RDW Coeff of Dash (11.5-14.5) % Plt Count (130-400) K/uL MPV (9.4-12.3) fL Sodium (136-145) mmol/L Potassium (3.5-5.1) mmol/L Chloride (98-107) mmol/L Carbon Dioxide (21-32) mmol/L Anion Gap (3-11) BUN (6-23) mg/dl Creatinine (0.6-1.2) mg/dl Est Cr Clr Drug Dosing ml/min Est GFR ( Amer) ml/min Est GFR (Non-Af Amer) ml/min BUN/Creatinine Ratio (10-20) Glucose (70-99(Fasting)) mg/dl POC Glucose 198 H (70-99) mg/dl Calcium (8.5-10.1) mg/dl Magnesium (1.7-2.4) mg/dl PG Care Time/CCT Total # of Minutes Spent Total Time Spent with Patient: Total time spent is greater than 50% in coordination of care (as documented) at patient's floor/unit and/or counseling patient: Coding Level of Care Code 80074 Subseq Hosp Care Lvl 2 Diagnoses Acute blood loss anemia D62 Intramuscular hematoma T14.8XXA COVID-19 U07.1 Iliac DVT (deep venous thrombosis) I82.429 Type 2 diabetes mellitus E11.9 Alzheimer's dementia G30.9; F02.80 Rhabdomyolysis due to COVID-19 U07.1; M62.82 Chronic renal failure, stage 3b N18.32 Acute metabolic encephalopathy G93.41 Urinary retention R33.9 UTI (urinary tract infection) N39.0 Hypomagnesemia E83.42 Colitis K52.9
[2022-01-04] MEDS: MELATONIN 3 MG TAB PO SCH (20:09)
[2022-01-04] MEDS: OLANZapine 10 MG TAB PO SCH (20:09)
[2022-01-05] MEDS: NSS + 20MEQ KCL 20 MEQ/1,000 ML BAG IV SCH ×2 (03:25→18:55)
[2022-01-05] MEDS ORDERED: VANCOMYCIN LEVEL ONE (05:30)
[2022-01-05] MEDS: VANCOMYCIN HCL 750 MG in SODIUM CHLORIDE 0.9% 250 ML IV SCH (06:26)
[2022-01-05 06:47] LABS: Basophils # (auto) 0.02 K/uL (0-0.2); Basophils % (auto) 0.3 %; Eosinophils # (auto) 0.12 K/uL (0-0.50); Eosinophils % (auto) 1.9 %; Hematocrit (blood only) 23.4 % (34.1-44.9); Hemoglobin 7.7 g/dl (12.0-16.0); Immature Granulocytes % (auto) 3.1 %; Lymphocytes # (auto) 0.98 K/uL (1.2-3.4); Lymphocytes % (auto) 15.4 %; Mean Corpuscular Hemoglobin 29.5 pg (25.0-34.0); Mean Corpuscular Hgb Conc 32.9 g/dL (32.0-36.0); Mean Corpuscular Volume 89.7 fL (80.0-100.0); Mean Platelet Volume 9.7 fL (9.4-12.3); Monocytes # (auto) 0.64 K/uL (0.24-0.82); Monocytes % (auto) 10.1 %; Neutrophils % (auto) 69.2 %; Nucleated RBC # (auto) 0.03 K/uL (0-0); Nucleated RBC % (auto) 0.5 %; Platelet Count 370 K/uL (130-400); RDW Coefficient of Variation 13.9 % (11.5-14.5); RDW Standard Deviation 45.3 fL (36.4-46.3); Red Blood Count 2.61 M/uL (3.93-5.22); White Blood Count 6.36 K/ul (4.8-10.8)
[2022-01-05 07:19] LABS: Albumin Globulin Ratio 1.4 (0.9-2); Albumin Level 2.7 gm/dl (3.4-5.0); BUN Creatinine Ratio 16.1 (10-20); Bilirubin,Total 0.8 mg/dl (0.2-1.0); Calcium 7.8 mg/dl (8.5-10.1); Creatinine Clr Calc Pharmacy 68.3 ml/min; Est GFR (African American) 101.3 ml/min; Est GFR (Non-African American) 87.4 ml/min; Magnesium 1.8 mg/dl (1.7-2.4); Potassium 3.8 mmol/L (3.5-5.1); Total Protein 4.7 gm/dl (6.0-8.3)
[2022-01-05 07:24] LABS: Echinocytes 1+; Polychromasia 1+
--- NOTE | 2022-01-05 07:26 | Pharmacy Report ---
Pharmacy PK ABX Note - Date of Service January 05, 2022 - Assessment and Plan Assessment 81 year old F receiving Vancomycin for treatment of UTI. * Day #4 of abx therapy (received ceftriaxone 1 g on 01/01/22). * Patient last febrile on 01/03. No leukocytosis. Renal fxn stable. * Urine culture positive for Enterococcus faecalis S to ampicillin (patient with allergies of blisters to amoxicillin with advanced dementia) Plan Vancomycin * Maintenance dose: 750 mg IV every 12 hours predicted to achieve AUC of <400 mg/L.hr * Increase maintenance dose to 1000 mg IV q12 hours * Regimen is predicted to achieve target AUC/CARSON of 400-600 mg/L.hr * Plan for level check on Sunday AM. Pharmacy will continue to follow and will adjust dose/frequency as necessary. Thank you. Pharmacy has transitioned to AUC monitoring for vancomycin. AUC/CARSON is the preferred PK/PD target and is associated with decreased risk of nephrotoxicity compared to traditional trough targets.
[2022-01-05] MEDS: LANTUS PER UNIT CHARGE SQ SCH (08:37)
[2022-01-05] MEDS ORDERED: IRON SUCROSE 300 MG in SODIUM CHLORIDE 0.9% 250 ML IV ONE (09:00)
[2022-01-05] MEDS ORDERED: AMOXICILLIN SUSP 400 MG/5 ML PO ONE (10:00)
[2022-01-05] MEDS: AMOXICILLIN 500 MG CAP PO SCH ×2 (12:43→22:39)
[2022-01-05] MEDS: OLANZapine 5 MG TABLET PO SCH (12:43)
[2022-01-05] MEDS ORDERED: VANCOMYCIN HCL 1,000 MG in SODIUM CHLORIDE 0.9% 250 ML IV SCH (16:00)
--- NOTE | 2022-01-05 17:21 | Hospitalist Progress Note ---
Date of Service January 05, 2022 Assessment & Plan (1) Acute blood loss anemia: Plan: 2nd to IM hematoma STOPPED lovenox. Hgb dropped to 7.5 but up to 7.7 now, remains HD stable so no transfusion indicated will give Venofer dose #2 today and a third dose tomorrow now s/p IVC filter. follow CBC again in AM and if remains stable again, can discharge to home gives verbal consent for PRBC transfusion if needed (2) Intramuscular hematoma: Plan: LEFT adductor musculature. As seen on CT and on exam. Suspect she probably had muscular injury in the left thigh from trauma from her prior fall on 12/26/21. Once on therapeutic lovenox any pre-existing scant bruising probably then bled. STOPPED lovenox. Follow H/H's. The bleeding has likely achieved tamponade She has not had any aspirin since admission (was on such at home). Does not need aspirin for primary prevention (3) COVID-19: Plan: s/p 5-day course of Remdesivir completed. CTA chest day of admission with mild "pulm edema" but suspect these were pulmonary infiltrates / pneumonia. Dexamethasone was deferred -- o2 sats stable and her pulmonary status has been fine since admission. COVID-induced rhabdomyolysis and traumatic rhabdo resolved with IV fluids. cont supportive care. (4) Iliac DVT (deep venous thrombosis): Plan: seen on CT abd/pelvis on 12/26. had been started on lovenox at that time in ER and d/cd home. upon admission on 12/28 lovenox was continued. CTA chest without PEs. formal Doppler RLE negative for DVT. I assume that her DVT was COVID-related from hypercoagulable state plus had recent hospitalization for colitis unfortunately has developed hematoma and anticoagulation stopped Appreciate Vascular surgery consult-now s/p IVC filter on 01/03. (5) Type 2 diabetes mellitus: Plan: new diagnosis made during prior hospital stay earlier this month with HbA1C >8%. DM diet. BSGs mildly high. continue lantus 5 units daily. (6) Alzheimer's dementia: Plan: advanced. ongoing acute delirium while here in setting of her illness. takes olanzapine 5mg QID. unusual dosing regimen but confirms this is how she takes it at home. she required IM haldol 2 days in a row despite the large dose of baseline zyprexa. psych recommended changing the zyprexa to 10mg BID - dose at noon, and dose at bedtime. unfortunately the 10mg dose at noon made her lethargic thus cut back the noon dose to 5mg. (7) Rhabdomyolysis due to COVID-19: Plan: Peak CPK 1. Had a reported fall on 12/26. Rhabdomyolysis likely due to COVID infection itself and the fall. last CPK down <500. mild elevation in AST was likely due to rhabdomyolysis. AST now normal. will dc IVFs (8) Chronic renal failure, stage 3b: Plan: baseline CrCl 30-45 repeat BMP am (9) Acute metabolic encephalopathy: Plan: 2nd to COVID infection, hospital psychosis, UTI, etc. this is in the setting of advanced dementia see above RE: zyprexa soft mitts restraints due to constant pulling out IVs, pulling at torres, etc now discontinued cont melatonin HS Much improved (10) Urinary retention: Plan: likely 2nd to UTI s/p torres placement treat the UTI trial of void tomorrow (11) UTI (urinary tract infection): Plan: had been on rocephin, but is growing Enterococcus and had fevers on evening of 01/02-now resolved check BCxs-NGTD changed rocephin to IV vanco on 01/02 reports allergy to Augmentin 25 years ago but has had amoxicillin on many occasions since that time without any problems-will switch to amox today- did a test dose low dose and she tolerated -start amox 500mg po tid to finish out the course of 7 days (12) Hypomagnesemia: Plan: replaced and resolved (13) Colitis: Plan: as seen on CT earlier this month. radiographically resolved on 12/26 CT and clinically resolved. ischemic? infectious? regardless of etiology - resolved. Plan updated at bedside today Appreciate palliative discussion-change to DNR/DNI but goal still to get her better and home again Dispo-possible dc to home tomorrow Admission and Anticipated Discharge Date Admission Date: December 28, 2021 Subjective Less agitation today, remains afebrile, doing well otherwise as per nursing, remains confused, at bedside.Eating well. He is pleased with her progress and feels she is ready to come home tomorrow Review of Systems Review of Systems: Unobtainable due to cognitive status Physical Exam Physical Exam: gen - thin, sleeping heart - RRR, s1 s2, no murmur lungs - CTA b/l; no rales abd - soft NT ND BS+; no HSM ext - pulses 2+ b/l, soft mitts removed musculo/skin - blotchy ecchymoses in the L groin and medial thigh; there is notable swelling and slight warmth in the proximal thigh, now with dressing in place left femoral site Results & Data Results & Data ([facility]) Vital Signs (Past 12 Hours) Vital Signs Temp Pulse Pulse Resp BP Pulse Ox O2 Del Method 01/05/22 16:58 37.5 C 99 H 18 121/73 97 Room Air 01/05/22 12:48 96 01/05/22 12:40 36.7 C 109 H 18 128/55 L 95 Room Air 01/05/22 11:27 36.7 C 88 16 103/65 94 Room Air 01/05/22 10:32 36.7 C 93 H 16 114/67 95 Room Air 01/05/22 05:55 36.4 C L 108 H 20 134/70 97 Room Air Laboratory Results 01/05/22 01/05/22 01/05/22 Range/Units 16:51 11:54 07:33 WBC (4.8-10.8) K/ul RBC (3.93-5.22) M/uL Hgb (12.0-16.0) g/dl Hct (34.1-44.9) % MCV (80.0-100.0) fL MCH (25.0-34.0) pg MCHC (32.0-36.0) g/dL RDW Std Deviation (36.4-46.3) fL RDW Coeff of Dash (11.5-14.5) % Plt Count (130-400) K/uL MPV (9.4-12.3) fL Immature Gran % (Auto) % Neut % (Auto) % Lymph % (Auto) % Stone % (Auto) % Eos % (Auto) % Baso % (Auto) % Neut # (Auto) (1.4-6.5) K/uL Lymph # (Auto) (1.2-3.4) K/uL Stone # (Auto) (0.24-0.82) K/uL Eos # (Auto) (0-0.50) K/uL Baso # (Auto) (0-0.2) K/uL Immature Gran # (Auto) (0.00-0.02) K/uL Absolute Nucleated RBC (0-0) K/uL Nucleated RBC % (auto) % Polychromasia Echinocytes Sodium (136-145) mmol/L Potassium (3.5-5.1) mmol/L Chloride (98-107) mmol/L Carbon Dioxide (21-32) mmol/L Anion Gap (3-11) BUN (6-23) mg/dl Creatinine (0.6-1.2) mg/dl Est Cr Clr Drug Dosing ml/min Est GFR ( Amer) ml/min Est GFR (Non-Af Amer) ml/min BUN/Creatinine Ratio (10-20) Glucose (70-99(Fasting)) mg/dl POC Glucose 158 H 151 H 157 H (70-99) mg/dl Calcium (8.5-10.1) mg/dl Magnesium (1.7-2.4) mg/dl Total Bilirubin (0.2-1.0) mg/dl AST (13-39) U/L ALT (7-52) U/L Alkaline Phosphatase (34-104) U/L Total Creatine Kinase (26-192) U/L Total Protein (6.0-8.3) gm/dl Albumin (3.4-5.0) gm/dl Globulin (2.5-4.0) gm/dl Albumin/Globulin Ratio (0.9-2) Vancomycin Trough (10-20) mcg/ml 01/05/22 01/05/22 01/05/22 Range/Units 06:19 06:19 06:19 WBC 6.36 (4.8-10.8) K/ul RBC 2.61 L (3.93-5.22) M/uL Hgb 7.7 L (12.0-16.0) g/dl Hct 23.4 L (34.1-44.9) % MCV 89.7 (80.0-100.0) fL MCH 29.5 (25.0-34.0) pg MCHC 32.9 (32.0-36.0) g/dL RDW Std Deviation 45.3 (36.4-46.3) fL RDW Coeff of Dash 13.9 (11.5-14.5) % Plt Count 370 (130-400) K/uL MPV 9.7 (9.4-12.3) fL Immature Gran % (Auto) 3.1 % Neut % (Auto) 69.2 % Lymph % (Auto) 15.4 % Stone % (Auto) 10.1 % Eos % (Auto) 1.9 % Baso % (Auto) 0.3 % Neut # (Auto) 4.40 (1.4-6.5) K/uL Lymph # (Auto) 0.98 L (1.2-3.4) K/uL Stone # (Auto) 0.64 (0.24-0.82) K/uL Eos # (Auto) 0.12 (0-0.50) K/uL Baso # (Auto) 0.02 (0-0.2) K/uL Immature Gran # (Auto) 0.20 H (0.00-0.02) K/uL Absolute Nucleated RBC 0.03 H (0-0) K/uL Nucleated RBC % (auto) 0.5 % Polychromasia 1+ Echinocytes 1+ Sodium 138 (136-145) mmol/L Potassium 3.8 (3.5-5.1) mmol/L Chloride 107 (98-107) mmol/L Carbon Dioxide 24 (21-32) mmol/L Anion Gap 7 (3-11) BUN 9 (6-23) mg/dl Creatinine 0.56 L (0.6-1.2) mg/dl Est Cr Clr Drug Dosing 68.3 ml/min Est GFR ( Amer) 101.3 ml/min Est GFR (Non-Af Amer) 87.4 ml/min BUN/Creatinine Ratio 16.1 (10-20) Glucose 156 H (70-99(Fasting)) mg/dl POC Glucose (70-99) mg/dl Calcium 7.8 L (8.5-10.1) mg/dl Magnesium 1.8 (1.7-2.4) mg/dl Total Bilirubin 0.8 (0.2-1.0) mg/dl AST 26 (13-39) U/L ALT 27 (7-52) U/L Alkaline Phosphatase 52 (34-104) U/L Total Creatine Kinase 214 H (26-192) U/L Total Protein 4.7 L (6.0-8.3) gm/dl Albumin 2.7 L (3.4-5.0) gm/dl Globulin 2.0 L (2.5-4.0) gm/dl Albumin/Globulin Ratio 1.4 (0.9-2) Vancomycin Trough 8.4 L (10-20) mcg/ml 01/04/22 Range/Units 20:06 WBC (4.8-10.8) K/ul RBC (3.93-5.22) M/uL Hgb (12.0-16.0) g/dl Hct (34.1-44.9) % MCV (80.0-100.0) fL MCH (25.0-34.0) pg MCHC (32.0-36.0) g/dL RDW Std Deviation (36.4-46.3) fL RDW Coeff of Dash (11.5-14.5) % Plt Count (130-400) K/uL MPV (9.4-12.3) fL Immature Gran % (Auto) % Neut % (Auto) % Lymph % (Auto) % Stone % (Auto) % Eos % (Auto) % Baso % (Auto) % Neut # (Auto) (1.4-6.5) K/uL Lymph # (Auto) (1.2-3.4) K/uL Stone # (Auto) (0.24-0.82) K/uL Eos # (Auto) (0-0.50) K/uL Baso # (Auto) (0-0.2) K/uL Immature Gran # (Auto) (0.00-0.02) K/uL Absolute Nucleated RBC (0-0) K/uL Nucleated RBC % (auto) % Polychromasia Echinocytes Sodium (136-145) mmol/L Potassium (3.5-5.1) mmol/L Chloride (98-107) mmol/L Carbon Dioxide (21-32) mmol/L Anion Gap (3-11) BUN (6-23) mg/dl Creatinine (0.6-1.2) mg/dl Est Cr Clr Drug Dosing ml/min Est GFR ( Amer) ml/min Est GFR (Non-Af Amer) ml/min BUN/Creatinine Ratio (10-20) Glucose (70-99(Fasting)) mg/dl POC Glucose 175 H (70-99) mg/dl Calcium (8.5-10.1) mg/dl Magnesium (1.7-2.4) mg/dl Total Bilirubin (0.2-1.0) mg/dl AST (13-39) U/L ALT (7-52) U/L Alkaline Phosphatase (34-104) U/L Total Creatine Kinase (26-192) U/L Total Protein (6.0-8.3) gm/dl Albumin (3.4-5.0) gm/dl Globulin (2.5-4.0) gm/dl Albumin/Globulin Ratio (0.9-2) Vancomycin Trough (10-20) mcg/ml PG Care Time/CCT Total # of Minutes Spent Total Time Spent with Patient: Total time spent is greater than 50% in coordination of care (as documented) at patient's floor/unit and/or counseling patient: Coding Level of Care Code 63475 Subseq Hosp Care Lvl 2 Diagnoses Acute blood loss anemia D62 Intramuscular hematoma T14.8XXA COVID-19 U07.1 Iliac DVT (deep venous thrombosis) I82.429 Type 2 diabetes mellitus E11.9 Alzheimer's dementia G30.9; F02.80 Rhabdomyolysis due to COVID-19 U07.1; M62.82 Chronic renal failure, stage 3b N18.32 Acute metabolic encephalopathy G93.41 Urinary retention R33.9 UTI (urinary tract infection) N39.0 Hypomagnesemia E83.42 Colitis K52.9
[2022-01-05] MEDS: OLANZapine 10 MG TAB PO SCH (22:39)
[2022-01-05] MEDS: MELATONIN 3 MG TAB PO SCH (22:40)
[2022-01-06 09:19] LABS: Basophils # (auto) 0.02 K/uL (0-0.2); Basophils % (auto) 0.3 %; Eosinophils # (auto) 0.14 K/uL (0-0.50); Eosinophils % (auto) 2.4 %; Hematocrit (blood only) 23.1 % (34.1-44.9); Hemoglobin 7.8 g/dl (12.0-16.0); Immature Granulocytes # (auto) 0.27 K/uL (0.00-0.02); Immature Granulocytes % (auto) 4.6 %; Lymphocytes # (auto) 1.05 K/uL (1.2-3.4); Lymphocytes % (auto) 17.9 %; Mean Corpuscular Hemoglobin 30.1 pg (25.0-34.0); Mean Corpuscular Hgb Conc 33.8 g/dL (32.0-36.0); Mean Corpuscular Volume 89.2 fL (80.0-100.0); Mean Platelet Volume 9.2 fL (9.4-12.3); Monocytes # (auto) 0.62 K/uL (0.24-0.82); Monocytes % (auto) 10.6 %; Neutrophils # (auto) 3.75 K/uL (1.4-6.5); Neutrophils % (auto) 64.2 %; Nucleated RBC # (auto) 0.06 K/uL (0-0); Platelet Count 371 K/uL (130-400); RDW Coefficient of Variation 14.6 % (11.5-14.5); RDW Standard Deviation 46.5 fL (36.4-46.3); Red Blood Count 2.59 M/uL (3.93-5.22); White Blood Count 5.85 K/ul (4.8-10.8)
[2022-01-06 09:39] LABS: BUN Creatinine Ratio 16.7 (10-20); Calcium 8.2 mg/dl (8.5-10.1); Creatinine Clr Calc Pharmacy 70.1 ml/min; Est GFR (African American) 102.6 ml/min; Est GFR (Non-African American) 88.5 ml/min; Potassium 3.9 mmol/L (3.5-5.1)
[2022-01-06] MEDS: AMOXICILLIN 500 MG CAP PO SCH ×2 (10:02→14:47)
[2022-01-06 10:14] LABS: Echinocytes 1+; Polychromasia 1+
[2022-01-06] MEDS: LANTUS PER UNIT CHARGE SQ SCH (11:05)
[2022-01-06] MEDS: OLANZapine 5 MG TABLET PO SCH (12:02)
--- NOTE | 2022-01-06 12:47 | Discharge Summary ---
Date of Service January 06, 2022 Admission HPI Per Admitting Provider 81yo female with advanced dementia - hospitalized at [facility] from 12/17/21 to 12/19/21 for colitis - presents from home due to ongoing weakness, fatigue, poor oral intake, and simply not feeling well. Was seen in the ER on 12/26/21 for a fall. During that ER visit she tested positive for COVID-19 (was febrile in the ER at time of evaluation) and underwent CT a/p showing a right iliac vein and common femoral vein DVT. Paxlovid was advised along with lovenox 1.5mg/kg/day for the DVT. She was discharged home with her . The patient herself was unable to give any history during my bedside visit. After finishing with an examination I called the who reported the following - 12/27/21 - patient was "weak, tired, and slept all day." Only took a few bites of pudding and a few ounces of gatorade. She "couldn't walk" because of the weakness. did not note any cough, dyspnea, chest pain, abd pain, vomiting or diarrhea. He isn't sure if she had any fever yesterday. 12/27/21 - received a lovenox injection by her son in the evening hours. Also took Paxlovid yesterday only. Has not had any lovenox or Paxlovid today. With respect to dementia - knows her and his name. At baseline she walks and feeds herself. She does have tendencies towards agitation hence the zyprexa 4 times daily. reports he is COVID+ and has been sick for about 4 days with severe cough/congestion. Principal Diagnosis COVID-19, Fall, weakness, DVT, Intramuscular hematoma, Acute blood loss anemia, UTI Discharge Exam gen - thin, NAD, awake and alert, pleasantly confused heart - RRR, s1 s2, no murmur lungs - CTA b/l; no rales abd - soft NT ND BS+; no HSM ext - pulses 2+ b/l musculo/skin - blotchy ecchymoses in the L groin and medial thigh; there is notable swelling and slight warmth in the proximal thigh, now with dressing in place left femoral site Discharge Data Allergies Allergy/AdvReac Type Severity Reaction Status Date / Time clavulanic acid Allergy Unknown blisters Verified 12/28/21 18:38 Consultations 12/28/21 06:16 ED Decision to Admit Stat 01/02/22 13:19 Consult Vascular Surgery Routine 01/03/22 09:04 Consult Palliative Care Routine Procedures Performed Operation Date: 01/03/22 08:20 Actual Procedures p Inferior Vena Cava Filter Placement, Fluroscopy for Positioning(Left) - Gregorio Rich MD Ordered Studies 12/28/21 05:12 CT head/brain wo con Urgent 12/28/21 08:19 CT angio chest PE protocol Stat 12/28/21 09:29 US venous doppler LE RT Stat 01/02/22 09:26 CT Abd and Pelvis [CT abd pelvis wo con] Urgent 01/03/22 07:19 EV IVC filter placement Routine Hospital Course (1) Acute blood loss anemia: 2nd to IM hematoma STOPPED lovenox. Hgb dropped to 7.5 but up to 7.8 and stable for several days now, remains HD stable so no transfusion indicated received Venoferx #2 doses now s/p IVC filter. follow CBC again in 1 week with PCP and if remains stable or improved, can restart ASA remains OFF Lovenox for DVT (2) Intramuscular hematoma: LEFT adductor musculature. As seen on CT and on exam. Suspect she probably had muscular injury in the left thigh from trauma from her prior fall on 12/26/21. Once on therapeutic lovenox any pre-existing scant bruising probably then bled. STOPPED lovenox. The bleeding has achieved tamponade as evidenced by stable hgb for several days She has not had any aspirin since admission (was on such at home). reports she is on it for suspected old CVA -can restart aspirin in 1 week if hgb stable (3) COVID-19: s/p 5-day course of Remdesivir completed. CTA chest day of admission with mild "pulm edema" but suspect these were pulmonary infiltrates / pneumonia. Dexamethasone was deferred -- o2 sats stable and her pulmonary status has been fine since admission. COVID-induced rhabdomyolysis and traumatic rhabdo resolved with IV fluids. cont supportive care. (4) Iliac DVT (deep venous thrombosis): seen on CT abd/pelvis on 12/26. had been started on lovenox at that time in ER and d/cd home. upon admission on 12/28 lovenox was continued. CTA chest without PEs. formal Doppler RLE negative for DVT. I assume that her DVT was COVID-related from hypercoagulable state plus had recent hospitalization for colitis unfortunately has developed hematoma and anticoagulation stopped Appreciate Vascular surgery consult-now s/p IVC filter on 01/03. (5) Type 2 diabetes mellitus: new diagnosis made during prior hospital stay earlier this month with HbA1C >8%. DM diet. BSGs mildly high. received lantus 5 units daily here but dc to home on no meds and have f/u with PCP due to age and comorbidities, probably does not need any treatment (6) Alzheimer's dementia: advanced. ongoing acute delirium while here in setting of her illness. takes olanzapine 5mg QID. unusual dosing regimen but confirms this is how she takes it at home. she required IM haldol 2 days in a row despite the large dose of baseline zyprexa. psych recommended changing the zyprexa to 10mg BID - dose at noon, and dose at bedtime. unfortunately the 10mg dose at noon made her lethargic thus cut back the noon dose to 5mg.Keep these changes on discharge DOing well now With Ambulatory dysfunction and a history of falls. Her severe dementia causes inability to use a walker or cane properly and therefore she should use a wheelchair for ambulatory assistance (7) Rhabdomyolysis due to COVID-19: Peak CPK 1910. Had a reported fall on 12/26. Rhabdomyolysis likely due to COVID infection itself and the fall. treated with IVFs for many days CPK much improved mild elevation in AST was likely due to rhabdomyolysis. AST now normal. (8) Chronic renal failure, stage 3b: baseline CrCl 30-45 repeat BMP am (9) Acute metabolic encephalopathy: 2nd to COVID infection, hospital psychosis, UTI, etc. this is in the setting of advanced dementia see above RE: zyprexa soft mitts restraints due to constant pulling out IVs, pulling at torres, etc now discontinued cont melatonin HS Much improved (10) Urinary retention: likely 2nd to UTI s/p torres placement treat the UTI with Vanco IV and then amox to finish out 3 more days after dischrge for a total of 7 days no further fevers Torres removed prior to discharge for trial of void (11) UTI (urinary tract infection): had been on rocephin, but is growing Enterococcus and had fevers on evening of 01/02-now resolved check BCxs-NGTD changed rocephin to IV vanco on 01/02 and then to amox to finish out the course reports allergy to Augmentin 25 years ago but has had amoxicillin on many occasions since that time without any problems-will switch to amox today- did a test dose low dose and she tolerated (12) Hypomagnesemia: replaced and resolved (13) Colitis: as seen on CT earlier this month. radiographically resolved on 12/26 CT and clinically resolved. ischemic? infectious? regardless of etiology - resolved. Plan updated at bedside today Appreciate palliative discussion-change to DNR/DNI but goal still to get her better and home again Dispo-dc to home today with home health, wheelchair, 23/10 supervision due to high fall risk which is willing to accept rather than going to rehab as recommended by PT/OT Total Time Total Time Spent Total Time Spent (In Minutes): 35 min Discharge Plan Discharge Items Patient Disposition: Home - Home Health Services Reason For Visit: COVID 19, DVT Discharge Diagnosis: COVID-19, DVT, Intramuscular hematoma, UTI, Acute blood loss anemia Activity: As commented below Lifting: Gradually increase as tolerated Bathing: No limitations Exercise/Sports: Gradually increase as tolerated Exercise Comment: with home PT/OT Weightbearing: Full weightbearing Non-emergency contact: Primary Care Provider Call non-emergency contact if: you have any medication questions and your symptoms worsen Follow-up/Referrals: Otto Ko DO [Primary Care Provider] - (Follow up within 1-2 weeks) Diet: Carb Consistent or DM2 Addtl Attending Provider Instructions: Please finish out the course of antibiotics for your UTI. You should be supervised at all times, 23/10, after returning home due to weakness and difficulty with ambulation. You are at high risk for falling if not supervised. For your bleeding in to the muscle in the pelvis, your blood thinner injections (enoxaparin) were STOPPED. Your baby aspirin should also continue to be held until you see your PCP in follow up. If your blood count continues to remain stable, you can restart your aspirin for stroke prevention. You were given 2 doses of IV iron while here to help boost your blood count back up. You had an Inferior vena cava filter (IVC filter) placed to prevent the blood clot in your leg from traveling to the lung and causing problems. Please follow up with your PCP within 1 week. Pending Studies at Discharge: Yes (final blood cultures result-no growth to date) Stand-Alone Forms: [facility], Smoking Cessation Medications and DC Order Prescriptions: New amoxicillin 500 mg Capsule 500 mg PO TID 3 Days Qty: 9 0RF Continued lorazepam 0.5 mg tablet 0.5 mg PO DAILY PRN (Reason: Anxiety) multivitamin Tablet 1 tab PO DAILY calcium carbonate-vitamin D3 500 mg-10 mcg (400 unit) Tablet 1 tab PO DAILY omega 7-via-hrk-fish oil [Fish Oil] 1,000 mg (120 mg-180 mg) Capsule 1 cap PO DAILY vitamin E [Vitamin E-400] 268 mg (400 unit) Capsule 268 mg PO DAILY metoprolol succinate 25 mg tablet extended release 24 hr 25 mg PO DAILY Changed olanzapine [Zyprexa] 5 mg Tablet 5 mg PO DAILY Qty: 90 0RF Rx Instructions: at noon and 10mg at bedtime Discontinued aspirin 81 mg Tablet,Delayed Release (Dr/Ec) 81 mg PO DAILY enoxaparin [Lovenox] 80 mg/0.8 mL syringe 80 mg subcut DAILY Qty: 8 1RF Paxlovid (EUA) 300 mg (150 mg x 2)-100 mg tablet See Rx Instructions .ROUTE .COMPLEX Qty: 30 0RF Rx Instructions: take TWO 150 mg tablets of nirmatrelvir with ONE 100 mg tablet of ritonavir twice daily for 5 days No Action trazodone 50 mg tablet 50 mg PO HS PRN (Reason: Sleep) Discharge Orders: Discharge Order (Routine); Ordered 01/06/22 Ordered By: Adele Ely Admission Data Admit Date/Time: 12/28/21 08:26 Attending Provider: Adele Ely Admit Provider: Wes Carpio Primary Care Provider: Otto Ko Other Providers: Watson Cohen ; Gregorio Rich ; Tarah Macario Coding Level of Care Code D/C DAY MANAGEMENT >30 MINS Diagnoses Acute blood loss anemia D62 Intramuscular hematoma T14.8XXA COVID-19 U07.1 Iliac DVT (deep venous thrombosis) I82.429 Type 2 diabetes mellitus E11.9 Alzheimer's dementia G30.9; F02.80 Rhabdomyolysis due to COVID-19 U07.1; M62.82 Chronic renal failure, stage 3b N18.32 Acute metabolic encephalopathy G93.41 Urinary retention R33.9 UTI (urinary tract infection) N39.0 Hypomagnesemia E83.42 Colitis K52.9
[2022-01-08] MEDS ORDERED: VANCOMYCIN LEVEL ONE (03:30)
== END 2022-01-06 18:57 | disposition home health service (06) | DRG 177 ==
LOC: ED 05:02 → SUATTDRO 08:26 → EDINP 08:26 → 2N 11:46

== ENCOUNTER 2023-08-02 12:06 | Inpatient (IN) ==
[2023-08-02] MEDS: OPTIRAY 320 125ml IV ONE (12:46)
--- NOTE | 2023-08-02 12:50 | XRay Report ---
SINGLE VIEW CHEST CLINICAL HISTORY: Neurological deficit. Stroke like symptoms FINDINGS: An AP, portable, upright chest radiograph is compared to study dated 12/28/2021. The heart i s enlarged. The pulmonary vasculature is noncongested. Chronic interstitial thickening is similar to previous. The lungs and pleural spaces are clear. No pneumothorax is seen. The skeletal structures ar e osteopenic. The bony thorax is grossly intact. Degenerative change and scoliosis is noted in the sp ine. An IVC filter is seen in the upper abdomen. Excreted IV contrast is seen in the renal collecting systems. IMPRESSION: Cardiomegaly with no active disease in the chest. ACT 112: Negative or not required by law. Electronically signed by: Eric Dunn M.D. 08/02/2023 12:49 PM
[2023-08-02] MEDS: SODIUM CHLORIDE 0.9% 1,000 ML IV ONE ×2 (12:51→13:19)
[2023-08-02 12:54] LABS: Partial Thromboplastin Ratio 0.7; Partial Thromboplastin Time 20 Seconds (21-31); Prothrombin Time 10.5 Seconds (9.0-12.0)
--- NOTE | 2023-08-02 12:56 | Emergency Department Note ---
Impression & Plan Hyperosmolar hyperglycemic state (HHS), Acute metabolic encephalopathy, Dementia, Hypernatremia, Renal insufficiency ED Provider Note NAME: PIERCE MOLINA AGE: 83 SEX: F : 1940 ARRIVES VIA: Walk-In INFORMANT: Patient ED PROVIDER(S): Jeremie Metz MD CHIEF COMPLAINT: Stroke symptoms PLAN: Disposition: Admit MEDICAL DECISION MAKING: The patient is an 83-year-old woman with a past medical history of dementia, who presents to the emergency department via walk-in accompanied by her concern for change in mental status and strokelike symptoms where she had stopped speaking and interacting from her baseline which is poor to begin with due to her severe dementia. He reports her baseline is not following commands but will speak though confused. She normally moves her arms and legs equally and cannot ambulate without substantial assistance where the patient's reports he has to stand her up and guide her to where she needs to go. She also cannot feed self but due to her inability to maintain attention to do so. He reports that last night he noticed a change where she was worsening from this baseline. He reports she has had similar episodes like this in the past and most recently was in December of this year where she was seen in [place] emergency department and was hospitalized. He understands that she did not have a stroke at that time but was not sure of the diagnosis. The patient's blood sugar on arrival was in the undetectable due to being over 600 but the patient's reports that she does not have a history of diabetes. Otherwise 90 fevers, chills, cough, congestion, GI or symptoms. The patient's reports that she is DNR and DNI. On my evaluation the patient is acute on chronically ill-appearing but no acute distress, afebrile stable vital signs. She appears clinically dry. She exhibits left-sided facial droop with her mouth open and tongue protruding. She will track with eyes when she is spoken to but will keep neck/head turned to the left. She appears to exhibit some rigidity in her extremities but motor assessment is limited secondary to baseline dementia and inability to follow commands. She exhibits normal respiratory effort. Given the patient's presentation which could be consistent with stroke like symptoms in the setting of last known well considered to be 6 PM yesterday evening stroke alert was activated in the event a large vessel occlusion will be identified however the patient was determined to not be a TN candidate upon initial assessment. Case was discussed with [facility] tel[place]roke neurology, Dr. Panchal. Appreciate recommendation and consultation. She did agree to assess the patient while awaiting CT imaging. CT imaging was subsequently unremarkable without ICH, ischemia or severe narrowing occlusion of large vessel. Dr. Panchal agrees the patient is not a TNK nor endovascular candidate. Agrees with further treatment for metabolic encephalopathy related to HHS which was further confirmed on return of the patient's chemistry panel which demonstrated serum osmolality of 382, serum glucose of 770, sodium of 157 which corrects to a sodium of 170. Additionally recommends monitoring for development of fever and rigidity given the patient is on olanzapine. Recommends obtaining EEG for assessment of seizure activity as the patient is hypernatremia puts her at risk for this. Appreciate consultation and recommendations. Patient received initial IV fluid hydration with 1 L normal saline. Subsequently was ordered for half-normal saline with 20 mEq of KCl with initial rate of 250 cc/h with caution for overcorrection. Insulin drip also initiated. Appreciate consultation with ICU pharmacist. Case was d/w Dr. Sarmeinto [facility] hospitalist who will evaluate the patient for admission. Triage Nursing notes reviewed and agree them. Prior/external medical records reviewed Vital Signs: reviewed Differential diagnosis: Infection, dehydration, metabolic abnormality, hypo/hyperglycemia, electrolyte disturbance, anemia, hypoxia, cardiac sources, intracerebral event, toxicologic, neurologic, as well as other pathologies. ER treatment provided: See below. Diagnostics interpreted by me: ECG: Sinus tachycardia, 109 bpm, no ectopy, no overt ST elevation or depression, QTc 455, QRS 76. Cardiac Monitoring: An order for continuous cardiac monitoring was placed and demonstrated Sinus tachycardia, 109 bpm, no ectopy. Laboratory studies: See below Imaging studies: See below Consultation(s): Dr. Zamora, [facility] telestroke neurology Dr. Sarmiento [facility] hospitalist. HPI: The patient is an 83-year-old woman with a past medical history of dementia, who presents to the emergency department via walk-in accompanied by her concern for change in mental status and strokelike symptoms where she had stopped speaking and interacting from her baseline which is poor to begin with due to her severe dementia. He reports her baseline is not following commands but will speak though confused. She normally moves her arms and legs equally and cannot ambulate without substantial assistance where the patient's reports he has to stand her up and guide her to where she needs to go. She also cannot feed self but due to her inability to maintain attention to do so. He reports that last night he noticed a change where she was worsening from this baseline. He reports she has had similar episodes like this in the past and most recently was in December of this year where she was seen in [place] emergency department and was hospitalized. He understands that she did not have a stroke at that time but was not sure of the diagnosis. The patient's blood sugar on arrival was in the undetectable due to being over 600 but the patient's reports that she does not have a history of diabetes. Otherwise 90 fevers, chills, cough, congestion, GI or symptoms. The patient's reports that she is DNR and DNI. ROS: See above HPI for pertinent positives & negatives. A total of 10 systems reviewed and were otherwise negative. VITALS:See Below PHYSICAL EXAMINATION: GENERAL: Awake, alert, acute on chronically ill-appearing, in no distress HENT: Normocephalic, atraumatic. Oropharynx with dry mucous membranes and otherwise unremarkable. EYES: Normal conjunctiva. Sclera non-icteric. Will track. No disconjugate gaze. NECK: Fixed gaze to the left. RESPIRATORY: Clear to auscultation. CARDIAC: Tachycardic rate, normal rhythm. Extremities warm and well perfused. Pulses equal. ABDOMEN: Soft, non-distended. No tenderness to palpation. No rebound or guarding. No masses. MUSCULOSKELETAL: Chest examination reveals no tenderness. The back is symmetrical on inspection without obvious abnormality. There is no CVA tenderness to palpation. No joint edema. LOWER EXTREMITIES: Calves are equal size bilaterally and non-tender. No edema. No discoloration. NEURO: Nonverbal, Tracks with eyes, possible left facial droop, protruded tongue, limited motor assessment. SKIN: No rash or jaundice noted. ED COURSE: Critical Care: I have personally spent greater than 75 minutes of critical care time in the direct management of this patient. This includes bedside care, interpretation of diagnostic studies, and testing, discussion with consultants, patient, and family members, and other required patient management activities. This 75 minutes is in excess of all separately billable procedures. 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 How many Children do You have: 4 How many Children do You have Comment: 1 child is Other Information That Helps Us Care for You: No Feels Safe at Home: Yes Safety Concerns: Feels Safe At This Time Assistive Devices: Cane, Glasses and Walker Allergies Allergies Allergy/AdvReac Type Severity Reaction Status Date / Time clavulanic acid Allergy Unknown blisters Verified 08/02/23 15:42 haloperidol [From Haldol] AdvReac Severe COMBATIVE, Verified 08/02/23 15:42 AGITATED Home Meds Home Medications Medication Instructions Recorded Confirmed aspirin 81 mg tablet,delayed 81 mg PO DAILY 08/02/23 08/02/23 release melatonin 10 mg tablet 10 mg PO HS 08/02/23 08/02/23 [id number] tablet 1 tab PO QAM 08/02/23 08/02/23 olanzapine 5 mg tablet (Zyprexa) See Rx Instructions .Route .COMPLEX 08/02/23 08/02/23 zinc citrate 16.7 mg chewable 0 mg PO QAM 08/02/23 08/02/23 tablet Results & Data (ED) Vital Signs Vital Signs - 24 hr 08/02/23 12:15 08/02/23 12:28 08/02/23 12:30 Temperature 36.2 C L Temperature Source Temporal Artery Scan Pulse Rate 111 H 110 H 108 H Pulse Rate from SpO2 Sensor Respiratory Rate 12 29 H 18 Respiratory Effort / Characteristics Non-Labored Respiratory Depth Normal Blood Pressure 111/65 Blood Pressure Mean 80 Pulse Oximetry 97 Oxygen Delivery Method Room Air Oxygen Flow Rate Sepsis Recent Fever Within 48 Hours No Sepsis New/Unexplained Change in Mental Status No Sepsis Action Taken by Nursing No Action Required Oxygen Flow Rate - Titration Pulse Oximetry Post Tiitration 08/02/23 12:42 08/02/23 12:42 08/02/23 12:45 Temperature Temperature Source Pulse Rate 106 H Pulse Rate from SpO2 Sensor Respiratory Rate 28 H Respiratory Effort / Characteristics Respiratory Depth Blood Pressure 139/80 134/84 Blood Pressure Mean 119 101 Pulse Oximetry Oxygen Delivery Method Oxygen Flow Rate Sepsis Recent Fever Within 48 Hours Sepsis New/Unexplained Change in Mental Status Sepsis Action Taken by Nursing Oxygen Flow Rate - Titration Pulse Oximetry Post Tiitration 08/02/23 12:45 08/02/23 12:48 08/02/23 12:51 Temperature Temperature Source Pulse Rate 102 H 95 H Pulse Rate from SpO2 Sensor 100 H 96 H Respiratory Rate 20 19 Respiratory Effort / Characteristics Respiratory Depth Blood Pressure Blood Pressure Mean Pulse Oximetry 91 88 L 97 Oxygen Delivery Method Room Air Oxygen Flow Rate 0 Sepsis Recent Fever Within 48 Hours Sepsis New/Unexplained Change in Mental Status Sepsis Action Taken by Nursing Oxygen Flow Rate - Titration 2 Pulse Oximetry Post Tiitration 92 08/02/23 12:59 08/02/23 13:00 08/02/23 13:02 Temperature Temperature Source Pulse Rate 98 H 98 H Pulse Rate from SpO2 Sensor 98 H 100 H Respiratory Rate 18 17 Respiratory Effort / Characteristics Respiratory Depth Blood Pressure 151/95 H Blood Pressure Mean 110 Pulse Oximetry 100 100 Oxygen Delivery Method Oxygen Flow Rate Sepsis Recent Fever Within 48 Hours Sepsis New/Unexplained Change in Mental Status Sepsis Action Taken by Nursing Oxygen Flow Rate - Titration Pulse Oximetry Post Tiitration 08/02/23 13:09 08/02/23 13:30 08/02/23 14:32 Temperature Temperature Source Pulse Rate 110 H 90 87 Pulse Rate from SpO2 Sensor Respiratory Rate 18 17 Respiratory Effort / Characteristics Respiratory Depth Blood Pressure 159/98 H 138/91 Blood Pressure Mean 120 109 Pulse Oximetry 100 99 Oxygen Delivery Method Nasal Cannula Nasal Cannula Oxygen Flow Rate 2 2 Sepsis Recent Fever Within 48 Hours Sepsis New/Unexplained Change in Mental Status Sepsis Action Taken by Nursing Oxygen Flow Rate - Titration Pulse Oximetry Post Tiitration Laboratory Data Attestation: I reviewed the patient's lab results. 08/02/23 12:30 08/02/23 22:57 Lab Results 08/02/23 08/02/23 08/02/23 Range/Units 12:29 12:30 12:31 WBC 9.67 (4.8-10.8) K/ul RBC 4.95 (4.20-5.40) M/uL Hgb 15.3 (12.0-16.0) g/dl Hct 50.0 H (37.0-47.0) % MCV 101.0 H (80.0-100.0) fL MCH 30.9 (25.0-34.0) pg MCHC 30.6 L (32.0-36.0) g/dL RDW Std Deviation 52.4 H (36.4-46.3) fL RDW Coeff of Dash 13.9 (11.5-14.5) % Plt Count 205 (130-400) K/uL MPV 11.3 (9.4-12.4) fL Immature Gran % (Auto) 0.3 % Neut % (Auto) 77.8 % Lymph % (Auto) 16.4 % Tyrrell % (Auto) 4.6 % Eos % (Auto) 0.7 % Baso % (Auto) 0.2 % Neut # (Auto) 7.52 H (1.40-6.50) K/uL Lymph # (Auto) 1.59 (1.20-3.40) K/uL Tyrrell # (Auto) 0.44 (0.11-0.59) K/uL Eos # (Auto) 0.07 (0.00-0.50) K/uL Baso # (Auto) 0.02 (0.00-0.20) K/uL Immature Gran # (Auto) 0.03 (0.01-0.20) K/uL PT 10.5 (9.0-12.0) Seconds INR 1.0 (0.9-1.1) APTT 20 L (21-31) Seconds PTT Ratio 0.7 VBG pH (7.36-7.41) VBG pCO2 (38-50) mmHg VBG pO2 mmHg VBG HCO3 mmol/L VBG O2 Saturation % VBG Base Excess mEq/L Sodium 157 H* (136-145) mmol/L Potassium 4.8 (3.5-5.1) mmol/L Chloride 119 H (98-107) mmol/L Carbon Dioxide 28 (21-32) mmol/L Anion Gap 10 (3-11) BUN 49 H (6-23) mg/dl Creatinine 1.54 H (0.6-1.2) mg/dl Est Cr Clr Drug Dosing 19.7 ml/min Est GFR ( Amer) 35.8 ml/min Est GFR (Non-Af Amer) 30.9 ml/min BUN/Creatinine Ratio 31.8 H (10-20) Glucose 775 H* (70-99(Fasting)) mg/dl POC Glucose 591 H* > 600 H* (70-99) mg/dl Estimat Average Glucose 269 mg/dl Hemoglobin A1c 11.0 H (4.5-5.6) % Osmolality 384 H* (280-300) mOsm/kg Calcium 10.0 (8.6-10.3) mg/dl Phosphorus 4.8 (2.5-4.9) mg/dl Magnesium 2.7 H (1.7-2.4) mg/dl Total Bilirubin 0.5 (0.2-1.0) mg/dl AST 13 (13-39) U/L ALT 27 (7-52) U/L Alkaline Phosphatase 115 H (34-104) U/L Troponin I High Sens 10.0 (0-14) pg/ml Total Protein 7.4 (6.0-8.3) gm/dl Albumin 4.1 (3.4-5.0) gm/dl Globulin 3.3 (2.5-4.0) gm/dl Albumin/Globulin Ratio 1.2 (0.9-2) TSH 3.034 (0.300-4.500) uIu/ml Urine Color Urine Appearance (Clear) Urine pH (4.5-7.5) Ur Specific Floral (1.000-1.030) Urine Protein (Negative) Urine Glucose (UA) (Negative) Urine Ketones (Negative) Urine Blood (Negative) Urine Nitrite (Negative) Urine Bilirubin (Negative) Urine Urobilinogen (Negative) Ur Leukocyte Esterase (Negative) Urine WBC (Auto) (0-5) /hpf Urine RBC (Auto) (0-2) /hpf U Hyaline Cast (Auto) (0-2) /lpf U Epithel Cells (Auto) (0-2) /hpf Urine Bacteria (Auto) (None Seen) 08/02/23 08/02/23 Range/Units 13:18 14:24 WBC (4.8-10.8) K/ul RBC (4.20-5.40) M/uL Hgb (12.0-16.0) g/dl Hct (37.0-47.0) % MCV (80.0-100.0) fL MCH (25.0-34.0) pg MCHC (32.0-36.0) g/dL RDW Std Deviation (36.4-46.3) fL RDW Coeff of Dash (11.5-14.5) % Plt Count (130-400) K/uL MPV (9.4-12.4) fL Immature Gran % (Auto) % Neut % (Auto) % Lymph % (Auto) % Tyrrell % (Auto) % Eos % (Auto) % Baso % (Auto) % Neut # (Auto) (1.40-6.50) K/uL Lymph # (Auto) (1.20-3.40) K/uL Tyrrell # (Auto) (0.11-0.59) K/uL Eos # (Auto) (0.00-0.50) K/uL Baso # (Auto) (0.00-0.20) K/uL Immature Gran # (Auto) (0.01-0.20) K/uL PT (9.0-12.0) Seconds INR (0.9-1.1) APTT (21-31) Seconds PTT Ratio VBG pH 7.29 L (7.36-7.41) VBG pCO2 59 H (38-50) mmHg VBG pO2 20 mmHg VBG HCO3 28 mmol/L VBG O2 Saturation < 60.0 % VBG Base Excess 0.5 mEq/L Sodium 158 H* (136-145) mmol/L Potassium (3.5-5.1) mmol/L Chloride (98-107) mmol/L Carbon Dioxide (21-32) mmol/L Anion Gap (3-11) BUN (6-23) mg/dl Creatinine (0.6-1.2) mg/dl Est Cr Clr Drug Dosing ml/min Est GFR ( Amer) ml/min Est GFR (Non-Af Amer) ml/min BUN/Creatinine Ratio (10-20) Glucose (70-99(Fasting)) mg/dl POC Glucose (70-99) mg/dl Estimat Average Glucose mg/dl Hemoglobin A1c (4.5-5.6) % Osmolality (280-300) mOsm/kg Calcium (8.6-10.3) mg/dl Phosphorus (2.5-4.9) mg/dl Magnesium (1.7-2.4) mg/dl Total Bilirubin (0.2-1.0) mg/dl AST (13-39) U/L ALT (7-52) U/L Alkaline Phosphatase (34-104) U/L Troponin I High Sens (0-14) pg/ml Total Protein (6.0-8.3) gm/dl Albumin (3.4-5.0) gm/dl Globulin (2.5-4.0) gm/dl Albumin/Globulin Ratio (0.9-2) TSH (0.300-4.500) uIu/ml Urine Color Yellow Urine Appearance Clear (Clear) Urine pH 5.0 (4.5-7.5) Ur Specific Floral > 1.045 H (1.000-1.030) Urine Protein Trace H (Negative) Urine Glucose (UA) 3+ H (Negative) Urine Ketones Trace H (Negative) Urine Blood Negative (Negative) Urine Nitrite Negative (Negative) Urine Bilirubin Negative (Negative) Urine Urobilinogen Negative (Negative) Ur Leukocyte Esterase Negative (Negative) Urine WBC (Auto) >50 H (0-5) /hpf Urine RBC (Auto) 0-2 (0-2) /hpf U Hyaline Cast (Auto) 3-5 H (0-2) /lpf U Epithel Cells (Auto) 3-5 H (0-2) /hpf Urine Bacteria (Auto) None Seen (None Seen) Administered Medications Heparin Sodium (Porcine) (Heparin Sod 5,000 Unit/0.5 Ml Vial) 5,000 units SQ Q12 MANJEET Stop: 09/01/23 20:59 Last Admin: 08/02/23 22:06 Dose: 5,000 units Documented By: NICK Insulin Human Regular 250 (units/ Sodium Chloride) 250 mls @ 1.6 mls/hr IV .Q24H MANJEET; Protocol Stop: 09/01/23 13:44 Last Titration: 08/03/23 00:20 Dose: 1.6 unit/hr, 1.6 mls/hr Documented By: NICK Co-signed By: SMITA Titration: 08/02/23 19:20 Dose: 0 unit/hr, 0 mls/hr Documented By: NICK Co-signed By: SMITA Titration: 08/02/23 18:18 Dose: 2.6 unit/hr, 2.6 mls/hr Documented By: LUIS ALBERTO Co-signed By: CM Titration: 08/02/23 17:58 Dose: 3.2 unit/hr, 3.2 mls/hr Documented By: LUIS ALBERTO Co-signed By: CM Titration: 08/02/23 17:18 Dose: 0 unit/hr, 0 mls/hr Documented By: LUIS ALBERTO Co-signed By: DTT Titration: 08/02/23 16:13 Dose: 5.4 unit/hr, 5.4 mls/hr Documented By: LUIS ALBERTO Co-signed By: ASHLEY Admin: 08/02/23 14:30 Dose: 4.5 unit/hr, 4.5 mls/hr Documented By: KATHERINE Co-signed By: BEL Potassium Chloride/Dextrose/Sod Cl (D5w And 1/2nss + 20meq Kcl) 20 meq in 1,000 mls @ 150 mls/hr IV .Q6H40M MANJEET Stop: 08/04/23 00:39 Last Admin: 08/02/23 22:13 Dose: 150 mls/hr Documented By: NICK Insulin Aspart (Insulin Aspart Per Unit Charge) 0 units SC ACHS MANJEET Stop: 09/01/23 16:29 Last Admin: 08/02/23 20:19 Dose: Not Given Documented By: Admin: 08/02/23 16:19 Dose: Not Given Documented By: LUIS ALBERTO Discontinued Medications Gadobutrol (Gadobutrol 65ml Vial) 4.5 ml IV ONCE ONE Stop: 08/02/23 21:41 Last Admin: 08/02/23 21:40 Dose: 4.5 ml Documented By: ERICK Sodium Chloride (Nss) 1,000 mls @ 999 mls/hr IV .Q1H1M ONE Stop: 08/02/23 13:25 Last Infusion: 08/02/23 14:29 Dose: Infused Documented By: Admin: 08/02/23 12:51 Dose: 999 mls/hr Documented By: ML Sodium Chloride (Nss) 1,000 mls @ 999 mls/hr IV .Q1H1M ONE Stop: 08/02/23 13:59 Last Infusion: 08/02/23 14:29 Dose: Infused Documented By: Admin: 08/02/23 13:19 Dose: 999 mls/hr Documented By: ML Potassium Chloride/Sodium Chloride (1/2 Nss + 20meq Kcl 1000ml) 20 meq in 1,000 mls @ 100 mls/hr IV .Q10H MANJEET Stop: 09/01/23 13:44 Last Infusion: 08/02/23 22:16 Dose: Infused Documented By: Admin: 08/02/23 22:16 Dose: 150 mls/hr Documented By: Admin: 08/02/23 22:10 Dose: Not Given Documented By: Admin: 08/02/23 19:36 Dose: 150 mls/hr Documented By: Infusion: 08/02/23 19:36 Dose: Infused Documented By: Admin: 08/02/23 18:26 Dose: Not Given Documented By: LUIS ALBERTO Infusion: 08/02/23 16:52 Dose: 150 mls/hr Documented By: LUIS ALBERTO Admin: 08/02/23 14:31 Dose: 250 mls/hr Documented By: KATHERINE Potassium Phosphate 15 mmol/ (Sodium Chloride) 255 mls @ 88 mls/hr IV ONE ONE Stop: 08/02/23 23:23 Last Admin: 08/02/23 20:44 Dose: 88 mls/hr Documented By: NICK Levetiracetam 1,000 mg/ Sodium (Chloride) 110 mls @ 440 mls/hr IV NOW STA Stop: 08/02/23 20:50 Last Infusion: 08/02/23 22:25 Dose: Infused Documented By: Admin: 08/02/23 22:06 Dose: 440 mls/hr Documented By: NICK Ioversol (Optiray 320 100ml) 119 ml IV ONCE ONE Stop: 08/02/23 12:46 Last Admin: 08/02/23 16:18 Dose: Not Given Documented By: LUIS ALBERTO Ioversol (Optiray 320 125ml) 119 ml IV ONCE ONE Stop: 08/02/23 12:47 Last Admin: 08/02/23 12:46 Dose: 119 ml Documented By: MELITON Wayne (Hhs Goal Range 250-350 Mg/Dl) 1 each N/A ONE ONE Stop: 08/02/23 13:39 Last Admin: 08/02/23 14:30 Dose: Not Given Documented By: KATHERINE Wayne (Stat Iv Infusion Titration Per Protocol) 1 each N/A NOW STA Stop: 08/02/23 13:39 Last Admin: 08/02/23 14:31 Dose: Not Given Documented By: KATHERINE Wayne (Hhs Goal Range 250-350 Mg/Dl) 1 each N/A ONE ONE Stop: 08/02/23 15:23 Last Admin: 08/02/23 16:18 Dose: Not Given Documented By: LUIS ALBERTO Imaging Data Radiologist's Impression: Chest X-Ray 08/02/23 12:24 SINGLE VIEW CHEST CLINICAL HISTORY: Neurological deficit. Stroke like symptoms FINDINGS: An AP, portable, upright chest radiograph is compared to study dated 12/28/2021. The heart is enlarged. The pulmonary vasculature is noncongested. Chronic interstitial thickening is similar to previous. The lungs and pleural spaces are clear. No pneumothorax is seen. The skeletal structures are osteopenic. The bony thorax is grossly intact. Degenerative change and scoliosis is noted in the spine. An IVC filter is seen in the upper abdomen. Excreted IV contrast is seen in the renal collecting systems. IMPRESSION: Cardiomegaly with no active disease in the chest. ACT 112: Negative or not required by law. Electronically signed by: Eric Dunn M.D. 08/02/2023 12:[address] 08/02/23 12:[address] OF THE BRAIN; CT ANGIOGRAM OF THE BRAIN; CT ANGIOGRAM OF THE NECK CLINICAL HISTORY: Neurological deficit. Stroke like symptoms. Aphasia. COMPARISON STUDY: CT of the brain dated 12/28/2021. TECHNIQUE: Unenhanced axial CT scan of the brain is performed. Subsequently, following the IV administration of 119 of Optiray 320, CT angiogram of the head and neck was performed from the aortic arch to the vertex. Images are reviewed in the axial, sagittal, and coronal planes. 3-D MIPS images are created and assessed. IV contrast was administered without complication. All measurements were calculated based on NASCET criteria. A dose lowering technique was utilized adhering to the principles of ALARA. 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 There is no hemorrhage, mass effect, or evidence of acute territorial ischemia by CT criteria. There is no evidence of enhancing mass lesion on the angiogram phase images. The ventricles, sulci, and cisterns are prominent secondary to involutional change. Calderón-white matter differentiation is preserved. No extra- axial fluid collection is seen. Thoracic aorta: Visualized portions of the thoracic aorta are normal in caliber. The aortic arch demonstrates standard 3-vessel anatomy. Right carotid arterial system: The right common carotid artery is widely patent, as are the right internal and external carotid arteries. Calcified plaque is noted in the carotid bulb. Left carotid arterial system: The left common carotid artery is widely patent, as are the left internal and external carotid arteries. Mild calcified plaque is noted in the carotid bulb. Vertebral arteries: The vertebral arteries are widely patent bilaterally noting right-sided dominance. Subclavian arteries: Widely patent bilaterally. Intracranial vasculature: There is atherosclerotic calcification of the cavernous carotid arteries. The internal carotid arteries are patent at the skull base, as are the anterior and middle cerebral arteries bilaterally. The vertebrobasilar system and posterior cerebral arteries are widely patent. The right vertebral artery is dominant. There is no aneurysm, high-grade stenosis, or focal vessel cut off seen throughout the intracranial circulation. Jugular veins: Not well opacified. Dural sinuses: Not well opacified. Lung apices: Partially visualized upper lobe lung parenchyma appears clear. Soft tissues: The visualized pharyngeal soft tissues are normal in appearance noting angiographic phase technique. The oropharyngeal airway appears widely patent. The salivary and thyroid glands are normal in appearance. No cervical lymphadenopathy is seen. Skeletal structures: The skeletal structures are osteopenic. The calvarium appears intact. The cervical spine is maintained noting multilevel spondylosis. Orbits: The bony orbits are intact. Orbital contents are normal as visualized. Sinuses and mastoids: The paranasal sinuses are clear. There is trace right mastoid effusion. The left mastoid air cells are well pneumatized. Cerumen is noted in the right external auditory canal. IMPRESSION: 1. There is no hemorrhage, mass effect, or evidence of acute territorial ischemia by CT criteria. 2. Unremarkable CT angiogram of the brain. 3. Unremarkable CT angiogram of the neck. ACT 112: Negative or not required by law. Electronically signed by: Eric Dunn M.D. 08/02/2023 12:57 PM Head CTA 08/02/23 12:[address] OF THE BRAIN; CT ANGIOGRAM OF THE BRAIN; CT ANGIOGRAM OF THE NECK CLINICAL HISTORY: Neurological deficit. Stroke like symptoms. Aphasia. COMPARISON STUDY: CT of the brain dated 12/28/2021. TECHNIQUE: Unenhanced axial CT scan of the brain is performed. Subsequently, following the IV administration of 119 of Optiray 320, CT angiogram of the head and neck was performed from the aortic arch to the vertex. Images are reviewed in the axial, sagittal, and coronal planes. 3-D MIPS images are created and assessed. IV contrast was administered without complication. All measurements were calculated based on NASCET criteria. A dose lowering technique was utilized adhering to the principles of ALARA. 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 There is no hemorrhage, mass effect, or evidence of acute territorial ischemia by CT criteria. There is no evidence of enhancing mass lesion on the angiogram phase images. The ventricles, sulci, and cisterns are prominent secondary to involutional change. Calderón-white matter differentiation is preserved. No extra- axial fluid collection is seen. Thoracic aorta: Visualized portions of the thoracic aorta are normal in caliber. The aortic arch demonstrates standard 3-vessel anatomy. Right carotid arterial system: The right common carotid artery is widely patent, as are the right internal and external carotid arteries. Calcified plaque is noted in the carotid bulb. Left carotid arterial system: The left common carotid artery is widely patent, as are the left internal and external carotid arteries. Mild calcified plaque is noted in the carotid bulb. Vertebral arteries: The vertebral arteries are widely patent bilaterally noting right-sided dominance. Subclavian arteries: Widely patent bilaterally. Intracranial vasculature: There is atherosclerotic calcification of the cavernous carotid arteries. The internal carotid arteries are patent at the skull base, as are the anterior and middle cerebral arteries bilaterally. The vertebrobasilar system and posterior cerebral arteries are widely patent. The right vertebral artery is dominant. There is no aneurysm, high-grade stenosis, or focal vessel cut off seen throughout the intracranial circulation. Jugular veins: Not well opacified. Dural sinuses: Not well opacified. Lung apices: Partially visualized upper lobe lung parenchyma appears clear. Soft tissues: The visualized pharyngeal soft tissues are normal in appearance noting angiographic phase technique. The oropharyngeal airway appears widely patent. The salivary and thyroid glands are normal in appearance. No cervical lymphadenopathy is seen. Skeletal structures: The skeletal structures are osteopenic. The calvarium appears intact. The cervical spine is maintained noting multilevel spondylosis. Orbits: The bony orbits are intact. Orbital contents are normal as visualized. Sinuses and mastoids: The paranasal sinuses are clear. There is trace right mastoid effusion. The left mastoid air cells are well pneumatized. Cerumen is noted in the right external auditory canal. IMPRESSION: 1. There is no hemorrhage, mass effect, or evidence of acute territorial ischemia by CT criteria. 2. Unremarkable CT angiogram of the brain. 3. Unremarkable CT angiogram of the neck. ACT 112: Negative or not required by law. Electronically signed by: Eric Dunn M.D. 08/02/2023 12:57 PM Neck CTA 08/02/23 12:[address] OF THE BRAIN; CT ANGIOGRAM OF THE BRAIN; CT ANGIOGRAM OF THE NECK CLINICAL HISTORY: Neurological deficit. Stroke like symptoms. Aphasia. COMPARISON STUDY: CT of the brain dated 12/28/2021. TECHNIQUE: Unenhanced axial CT scan of the brain is performed. Subsequently, following the IV administration of 119 of Optiray 320, CT angiogram of the head and neck was performed from the aortic arch to the vertex. Images are reviewed in the axial, sagittal, and coronal planes. 3-D MIPS images are created and assessed. IV contrast was administered without complication. All measurements were calculated based on NASCET criteria. A dose lowering technique was utilized adhering to the principles of ALARA. 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 There is no hemorrhage, mass effect, or evidence of acute territorial ischemia by CT criteria. There is no evidence of enhancing mass lesion on the angiogram phase images. The ventricles, sulci, and cisterns are prominent secondary to involutional change. Calderón-white matter differentiation is preserved. No extra- axial fluid collection is seen. Thoracic aorta: Visualized portions of the thoracic aorta are normal in caliber. The aortic arch demonstrates standard 3-vessel anatomy. Right carotid arterial system: The right common carotid artery is widely patent, as are the right internal and external carotid arteries. Calcified plaque is noted in the carotid bulb. Left carotid arterial system: The left common carotid artery is widely patent, as are the left internal and external carotid arteries. Mild calcified plaque is noted in the carotid bulb. Vertebral arteries: The vertebral arteries are widely patent bilaterally noting right-sided dominance. Subclavian arteries: Widely patent bilaterally. Intracranial vasculature: There is atherosclerotic calcification of the cavernous carotid arteries. The internal carotid arteries are patent at the skull base, as are the anterior and middle cerebral arteries bilaterally. The vertebrobasilar system and posterior cerebral arteries are widely patent. The right vertebral artery is dominant. There is no aneurysm, high-grade stenosis, or focal vessel cut off seen throughout the intracranial circulation. Jugular veins: Not well opacified. Dural sinuses: Not well opacified. Lung apices: Partially visualized upper lobe lung parenchyma appears clear. Soft tissues: The visualized pharyngeal soft tissues are normal in appearance noting angiographic phase technique. The oropharyngeal airway appears widely patent. The salivary and thyroid glands are normal in appearance. No cervical lymphadenopathy is seen. Skeletal structures: The skeletal structures are osteopenic. The calvarium appears intact. The cervical spine is maintained noting multilevel spondylosis. Orbits: The bony orbits are intact. Orbital contents are normal as visualized. Sinuses and mastoids: The paranasal sinuses are clear. There is trace right mastoid effusion. The left mastoid air cells are well pneumatized. Cerumen is noted in the right external auditory canal. IMPRESSION: 1. There is no hemorrhage, mass effect, or evidence of acute territorial ischemia by CT criteria. 2. Unremarkable CT angiogram of the brain. 3. Unremarkable CT angiogram of the neck. ACT 112: Negative or not required by law. Electronically signed by: Eric Dunn M.D. 08/02/2023 12:57 PM Discharge Plan Visit Data Chief Complaint: Stroke/CVA Symptoms Stated Complaint: POSSIBLE STROKE, FACE WEAKNESS ED Provider: Jeremie Metz Discharge Problem: Hyperosmolar hyperglycemic state (HHS), Acute metabolic encephalopathy, Dementia, Hypernatremia, Renal insufficiency Patient Disposition: Admitted As Inpatient Discharge Instructions Interventions: ED Discharge Assessment Last Done: 08/02/23 16:01 Discharge Problem: Dementia Qualifiers: Dementia type: unspecified type Dementia severity: unspecified severity D ementia behavioral or psychological symptom: unspecified whether behavioral, psychotic, or mood disturbance or anxiety Qualified Code(s): F03.90 - Unspecified dementia, unspecified severity, without behavioral disturbance, psychotic disturbance, mood disturbance, and anxiety
--- NOTE | 2023-08-02 12:58 | CT Scan Report ---
UNENHANCED CT OF THE BRAIN; CT ANGIOGRAM OF THE BRAIN; CT ANGIOGRAM OF THE NECK CLINICAL HISTORY: Neurological deficit. Stroke like symptoms. Aphasia. COMPARISON STUDY: CT of the brain dated 12/28/2021. TECHNIQUE: Unenhanced axial CT scan of the brain is performed. Subsequently, following the IV adminis tration of 119 of Optiray 320, CT angiogram of the head and neck was performed from the aortic arch t o the vertex. Images are reviewed in the axial, sagittal, and coronal planes. 3-D MIPS images are cre ated and assessed. IV contrast was administered without complication. All measurements were calculate d based on NASCET criteria. A dose lowering technique was utilized adhering to the principles of ALA RA. CT DOSE: 1011.78 mGy.cm FINDINGS: Brain parenchyma: There is age related involutional change noting advanced subcortical and periventri cular microangiopathic disease. There is no hemorrhage, mass effect, or evidence of acute territorial ischemia by CT criteria. There is no evidence of enhancing mass lesion on the angiogram phase images . The ventricles, sulci, and cisterns are prominent secondary to involutional change. Calderón-white frank er differentiation is preserved. No extra-axial fluid collection is seen. Thoracic aorta: Visualized portions of the thoracic aorta are normal in caliber. The aortic arch demo nstrates standard 3-vessel anatomy. Right carotid arterial system: The right common carotid artery is widely patent, as are the right int ernal and external carotid arteries. Calcified plaque is noted in the carotid bulb. Left carotid arterial system: The left common carotid artery is widely patent, as are the left international logistics manager al and external carotid arteries. Mild calcified plaque is noted in the carotid bulb. Vertebral arteries: The vertebral arteries are widely patent bilaterally noting right-sided dominance . Subclavian arteries: Widely patent bilaterally. Intracranial vasculature: There is atherosclerotic calcification of the cavernous carotid arteries. T he internal carotid arteries are patent at the skull base, as are the anterior and middle cerebral ar teries bilaterally. The vertebrobasilar system and posterior cerebral arteries are widely patent. The right vertebral artery is dominant. There is no aneurysm, high-grade stenosis, or focal vessel cut o ff seen throughout the intracranial circulation. Jugular veins: Not well opacified. Dural sinuses: Not well opacified. Lung apices: Partially visualized upper lobe lung parenchyma appears clear. Soft tissues: The visualized pharyngeal soft tissues are normal in appearance noting angiographic pha se technique. The oropharyngeal airway appears widely patent. The salivary and thyroid glands are nor mal in appearance. No cervical lymphadenopathy is seen. Skeletal structures: The skeletal structures are osteopenic. The calvarium appears intact. The cervic al spine is maintained noting multilevel spondylosis. Orbits: The bony orbits are intact. Orbital contents are normal as visualized. Sinuses and mastoids: The paranasal sinuses are clear. There is trace right mastoid effusion. The lef t mastoid air cells are well pneumatized. Cerumen is noted in the right external auditory canal. IMPRESSION: 1. There is no hemorrhage, mass effect, or evidence of acute territorial ischemia by CT criteria. 2. Unremarkable CT angiogram of the brain. 3. Unremarkable CT angiogram of the neck. ACT 112: Negative or not required by law. Electronically signed by: Eric Dunn M.D. 08/02/2023 12:57 PM
[2023-08-02 12:59] LABS: Basophils # (auto) 0.02 K/uL (0.00-0.20); Basophils % (auto) 0.2 %; Eosinophils # (auto) 0.07 K/uL (0.00-0.50); Eosinophils % (auto) 0.7 %; Hemoglobin 15.3 g/dl (12.0-16.0); Immature Granulocytes # (auto) 0.03 K/uL (0.01-0.20); Immature Granulocytes % (auto) 0.3 %; Lymphocytes # (auto) 1.59 K/uL (1.20-3.40); Lymphocytes % (auto) 16.4 %; Mean Corpuscular Hemoglobin 30.9 pg (25.0-34.0); Mean Corpuscular Hgb Conc 30.6 g/dL (32.0-36.0); Mean Platelet Volume 11.3 fL (9.4-12.4); Monocytes # (auto) 0.44 K/uL (0.11-0.59); Monocytes % (auto) 4.6 %; Neutrophils # (auto) 7.52 K/uL (1.40-6.50); Neutrophils % (auto) 77.8 %; Platelet Count 205 K/uL (130-400); RDW Coefficient of Variation 13.9 % (11.5-14.5); RDW Standard Deviation 52.4 fL (36.4-46.3); Red Blood Count 4.95 M/uL (4.20-5.40); White Blood Count 9.67 K/ul (4.8-10.8)
[2023-08-02 13:28] LABS: Albumin Globulin Ratio 1.2 (0.9-2); Albumin Level 4.1 gm/dl (3.4-5.0); BUN Creatinine Ratio 31.8 (10-20); Bilirubin,Total 0.5 mg/dl (0.2-1.0); Creatinine Clr Calc Pharmacy 19.7 ml/min; Est GFR (African American) 35.8 ml/min; Est GFR (Non-African American) 30.9 ml/min; Globulin 3.3 gm/dl (2.5-4.0); Magnesium 2.7 mg/dl (1.7-2.4); Phosphorus 4.8 mg/dl (2.5-4.9); Potassium 4.8 mmol/L (3.5-5.1); Total Protein 7.4 gm/dl (6.0-8.3)
[2023-08-02 13:42] LABS: Thyroid Stimulating Hormone 3.034 uIu/ml (0.300-4.500)
[2023-08-02] MEDS ORDERED: LACTATED RINGER'S 1,000 ML IV SCH (13:45)
[2023-08-02] MEDS ORDERED: INSULIN REGULAR 250 UNITS in SODIUM CHLORIDE 0.9% 247.5 ML IV SCH (13:45)
[2023-08-02 13:49] LABS: Appearance Urine Clear (Clear); Bacteria Urine Automated None Seen (None Seen); Bilirubin Urine Negative (Negative); Blood Urine Negative (Negative); Color Urine Yellow; Glucose Urine UA 3+ (Negative); Ketones Urine Trace (Negative); Leukocyte Esterase Urine Negative (Negative); Nitrite Urine Negative (Negative); Protein Urine Trace (Negative); RBC Urine Automated 0-2 /hpf (0-2); Specific Gravity Urine > 1.045 (1.000-1.030); Urobilinogen Urine Negative (Negative); WBC Urine Automated >50 /hpf (0-5)
[2023-08-02] MEDS: HHS GOAL RANGE 250-350 mg/dl ONE ×2 (14:30→16:18)
[2023-08-02] MEDS: INSULIN REGULAR 250 UNITS in SODIUM CHLORIDE 0.9% 247.5 ML IV SCH (14:30)
[2023-08-02] MEDS: SODIUM CHLOR 0.45% + 20MEQ KCL 20 MEQ/1,000 ML BAG IV SCH (14:31)
[2023-08-02] MEDS: STAT IV Infusion **Titration per Protocol STA (14:31)
[2023-08-02 14:32] LABS: Estimated Average Glucose 269 mg/dl
--- NOTE | 2023-08-02 14:33 | History & Physical Report ---
Date of Service August 02, 2023 Assessment & Plan (1) Hyperosmolar hyperglycemic state (HHS): Plan: HbA1C 11.0 Initial fluid resuscitation with NSS 2L bolus Reduce ongoing rate of half NSS KCl to 150ml/hr given her small size and need to reduce sodium slower Add D5 once glucose within range to avoid precipitous drop in glucose IV insulin drip with aim 250-350 q4h BMP/VBG/PO/Mg (2) Hypernatremia: Plan: Suspected due to osmotic diuresis with hyperglycemia. Urine specific gravity elevated therefore not suspicious of diabetes insipidus - no need for urine osm. Corrected sodium for glucose 173 Aim correction 10-12 meq over next 24 hours Na 157 on admission -> 145-147 (although suspect will likely need to increase this aim as sodium initially increases with lowering glucose and osmotic shifting of water out of vascular space); using Na goal 145 free water deficit from corrected sodium (Na 173) of 3.6L although in reality we are also not aiming to "normalize" her glucose levels therefore free water repletion will be less and will expect sodium to initially increase with glucose correction therefore 24 hour aim will also be higher Rate of correction 0.5 meq/L/hr with half NSS with serum Na 170 approximately 114 ml/hr - hyperglycemia cause lover serum sodium levels will allow faster rate than this however q4h Na, will adjust fluids as needed (3) Stroke-like symptoms: Plan: EEG to assess for focal seizure Brain MRI once more stable (4) Acute metabolic encephalopathy: Plan: Unclear if she will return to baseline. Workup as above and reassess possible need for palliative care approach but given current reversible etiology with hypernatremia will reassess following treatment for this (5) Alzheimer's dementia: Plan: Baseline requires help with all ADLs including feeding and walking Hold olanzapine as may be having seizure and current decreased responsiveness Will need SLT consult prior to diet, NPO overnight (6) Type 2 diabetes mellitus: Plan: On no medication on this at baseline HbA1C 8.4 2021 therefore suspect she has had this for some time. Plan VTE Prophylaxis - heparin 5000 units SQ BID Diet - NPO Disposition - admit to PCU Admission and Anticipated Discharge Date Admission Date: August 02, 2023 History of Present Illness Chief Complaint: Altered mental state Stroke-like symptoms Primary Care Provider: DO Lm Hernandezkasi Anglin is an 83 year old female who presents to the ER with mouth hanging down, decreased responsiveness and stopped talking. No family at bedside when seen and unable to get any history from the patient (saying yes to name only). History taken from ER provider. Last known well 18:00. Baseline she is requiring help with all ADLs including walking, feeding, dressing. Significant change in her baseline this morning therefore family felt she was having a stroke and brought her to the ER. Allergies Allergy/AdvReac Type Severity Reaction Status Date / Time clavulanic acid Allergy Unknown blisters Verified 08/02/23 15:42 haloperidol [From Haldol] AdvReac Severe COMBATIVE, Verified 08/02/23 15:42 AGITATED Home Medications Medication Instructions Recorded Confirmed Type aspirin 81 mg tablet,delayed 81 mg PO DAILY 08/02/23 08/02/23 History release melatonin 10 mg tablet 10 mg PO HS 08/02/23 08/02/23 History ochaipfz-zkjqvxa-fsze-lutein tablet 1 tab PO QAM 08/02/23 08/02/23 History olanzapine 5 mg tablet (Zyprexa) See Rx Instructions .Route .COMPLEX 08/02/23 08/02/23 History zinc citrate 16.7 mg chewable 0 mg PO QAM 08/02/23 08/02/23 History tablet Past Med/Surg History Medical History Iliac DVT (deep venous thrombosis) Type 2 diabetes mellitus COVID-19 Colitis Alzheimer's dementia Surgical History H/O umbilical hernia repair Family History Father Dementia Mother Cancer Social History Smoking Status: Former smoker Tobacco Type: Cigarettes Hx Alcohol Use: No Hx Substance Use: Yes Preferred Language: Chinese Communication Ability: Unable Metropolitan Editor Required: No Beliefs That Will Affect Care: None marital status: Current Living Situation: Spouse Current Living Situation Comment: lives in [place] with current occupation: was a beautician How many Children do You have: 4 How many Children do You have Comment: 1 child is Other Information That Helps Us Care for You: No Feels Safe at Home: Yes Safety Concerns: Feels Safe At This Time Assistive Devices: Cane, Glasses and Walker Review of Systems Review of Systems: Unobtainable due to cognitive status Physical Exam Constitutional: + not well nourished and no acute distre ss Eyes: PERRL (patient resisting opening therefore difficult exam) ENMT: Mouth: + dry oral mucous membranes Respiratory: normal respiratory effort; no respiratory distress Auscultation: lungs clear to auscultation bilaterally Cardiovascular: Rate/Rhythm: regular rate and regular rhythm Heart Sounds: no murmur Extremities: normal capillary refill; no calf tenderness and no pedal edema Gastrointestinal (Abdomen): normal bowel sounds, soft, nontender, no hepatosplenomegaly Skin: no rashes, warm and dry (no areas of cellulitis seen) Neurologic: awake (says occasional words, GCS 8 [id number]); + does not move all extremities Psychiatric: Orientation: alert; + not oriented x 3 Results & Data Results & Data Vital Signs (Past 12 Hours) Vital Signs Temp Pulse Resp BP Pulse Ox O2 Del Method O2 Flow Rate 08/02/23 13:09 110 H 08/02/23 13:02 98 H 17 100 08/02/23 13:00 151/95 H 08/02/23 12:59 98 H 18 100 08/02/23 12:51 95 H 19 97 08/02/23 12:48 88 L Room Air 0 08/02/23 12:45 102 H 20 91 08/02/23 12:45 134/84 08/02/23 12:42 139/80 08/02/23 12:42 106 H 28 H 08/02/23 12:30 108 H 18 08/02/23 12:28 110 H 29 H 08/02/23 12:15 36.2 C L 111 H 12 111/65 97 Room Air Laboratory Results Abnormal lab results 08/02/23 08/02/23 08/02/23 Range/Units 12:29 12:30 12:31 Hct 50.0 H (37.0-47.0) % MCV 101.0 H (80.0-100.0) fL MCHC 30.6 L (32.0-36.0) g/dL RDW Std Deviation 52.4 H (36.4-46.3) fL Neut # (Auto) 7.52 H (1.40-6.50) K/uL APTT 20 L (21-31) Seconds VBG pH (7.36-7.41) VBG pCO2 (38-50) mmHg Sodium 157 H* (136-145) mmol/L Chloride 119 H (98-107) mmol/L BUN 49 H (6-23) mg/dl Creatinine 1.54 H (0.6-1.2) mg/dl BUN/Creatinine Ratio 31.8 H (10-20) Glucose 775 H* (70-99(Fasting)) mg/dl POC Glucose 591 H* > 600 H* (70-99) mg/dl Hemoglobin A1c 11.0 H (4.5-5.6) % Osmolality 384 H* (280-300) mOsm/kg Magnesium 2.7 H (1.7-2.4) mg/dl Alkaline Phosphatase 115 H (34-104) U/L Ur Specific [place] (1.000-1.030) Urine Protein (Negative) Urine Glucose (UA) (Negative) Urine Ketones (Negative) Urine WBC (Auto) (0-5) /hpf U Hyaline Cast (Auto) (0-2) /lpf U Epithel Cells (Auto) (0-2) /hpf 08/02/23 08/02/23 08/02/23 Range/Units 13:18 14:24 15:34 Hct (37.0-47.0) % MCV (80.0-100.0) fL MCHC (32.0-36.0) g/dL RDW Std Deviation (36.4-46.3) fL Neut # (Auto) (1.40-6.50) K/uL APTT (21-31) Seconds VBG pH 7.29 L (7.36-7.41) VBG pCO2 59 H (38-50) mmHg Sodium 158 H* (136-145) mmol/L Chloride (98-107) mmol/L BUN (6-23) mg/dl Creatinine (0.6-1.2) mg/dl BUN/Creatinine Ratio (10-20) Glucose (70-99(Fasting)) mg/dl POC Glucose 379 H* (70-99) mg/dl Hemoglobin A1c (4.5-5.6) % Osmolality (280-300) mOsm/kg Magnesium (1.7-2.4) mg/dl Alkaline Phosphatase (34-104) U/L Ur Specific [place] > 1.045 H (1.000-1.030) Urine Protein Trace H (Negative) Urine Glucose (UA) 3+ H (Negative) Urine Ketones Trace H (Negative) Urine WBC (Auto) >50 H (0-5) /hpf U Hyaline Cast (Auto) 3-5 H (0-2) /lpf U Epithel Cells (Auto) 3-5 H (0-2) /hpf Diagnostic Findings UNENHANCED CT OF THE BRAIN; CT ANGIOGRAM OF THE BRAIN; CT ANGIOGRAM OF THE NECK CLINICAL HISTORY: Neurological deficit. Stroke like symptoms. Aphasia. COMPARISON STUDY: CT of the brain dated 12/28/2021. TECHNIQUE: Unenhanced axial CT scan of the brain is performed. Subsequently, following the IV administration of 119 of Optiray 320, CT angiogram of the head and neck was performed from the aortic arch to the vertex. Images are reviewed in the axial, sagittal, and coronal planes. 3-D MIPS images are created and assessed. IV contrast was administered without complication. All measurements were calculated based on NASCET criteria. A dose lowering technique was utilized adhering to the principles of ALARA. 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 There is no hemorrhage, mass effect, or evidence of acute territorial ischemia by CT criteria. There is no evidence of enhancing mass lesion on the angiogram phase images. The ventricles, sulci, and cisterns are prominent secondary to involutional change. Calderón-white matter differentiation is preserved. No extra- axial fluid collection is seen. Thoracic aorta: Visualized portions of the thoracic aorta are normal in caliber. The aortic arch demonstrates standard 3-vessel anatomy. Right carotid arterial system: The right common carotid artery is widely patent, as are the right internal and external carotid arteries. Calcified plaque is noted in the carotid bulb. Left carotid arterial system: The left common carotid artery is widely patent, as are the left internal and external carotid arteries. Mild calcified plaque is noted in the carotid bulb. Vertebral arteries: The vertebral arteries are widely patent bilaterally noting right-sided dominance. Subclavian arteries: Widely patent bilaterally. Intracranial vasculature: There is atherosclerotic calcification of the cavernous carotid arteries. The internal carotid arteries are patent at the skull base, as are the anterior and middle cerebral arteries bilaterally. The vertebrobasilar system and posterior cerebral arteries are widely patent. The right vertebral artery is dominant. There is no aneurysm, high-grade stenosis, or focal vessel cut off seen throughout the intracranial circulation. Jugular veins: Not well opacified. Dural sinuses: Not well opacified. Lung apices: Partially visualized upper lobe lung parenchyma appears clear. Soft tissues: The visualized pharyngeal soft tissues are normal in appearance noting angiographic phase technique. The oropharyngeal airway appears widely patent. The salivary and thyroid glands are normal in appearance. No cervical lymphadenopathy is seen. Skeletal structures: The skeletal structures are osteopenic. The calvarium appears intact. The cervical spine is maintained noting multilevel spondylosis. Orbits: The bony orbits are intact. Orbital contents are normal as visualized. Sinuses and mastoids: The paranasal sinuses are clear. There is trace right mas toid effusion. The left mastoid air cells are well pneumatized. Cerumen is noted in the right external auditory canal. IMPRESSION: 1. There is no hemorrhage, mass effect, or evidence of acute territorial ischemia by CT criteria. 2. Unremarkable CT angiogram of the brain. 3. Unremarkable CT angiogram of the neck. SINGLE VIEW CHEST CLINICAL HISTORY: Neurological deficit. Stroke like symptoms FINDINGS: An AP, portable, upright chest radiograph is compared to study dated 12/28/2021. The heart is enlarged. The pulmonary vasculature is noncongested. Chronic interstitial thickening is similar to previous. The lungs and pleural spaces are clear. No pneumothorax is seen. The skeletal structures are osteopenic. The bony thorax is grossly intact. Degenerative change and scoliosis is noted in the spine. An IVC filter is seen in the upper abdomen. Excreted IV contrast is seen in the renal collecting systems. IMPRESSION: Cardiomegaly with no active disease in the chest. Medications Administered ER Medications Given: Normal saline 1L bolus Normal saline 1L bolus Half NSS KCl 20 meq @ 250ml/hr Insulin IV drip [facility] protocol ECG Rate (beats per minute): 109 Rhythm: sinus tachycardia Findings: + other (rightward axis) and + T-wave inversion (Inferior) Comparison ECG Date: from (Dec 28, 2021) Change: the following changes noted (TWI in inferior leads) Code Status & VTE Plan Code Status DNR/DNI per discussion with ER provider VTE Prophylaxis Plan VTE Prophylaxis will be ordered: Yes Critical Care Time Critical Care Time: Yes Total Critical Care Time: 55 PG Care Time/CCT Total # of Minutes Spent Total Time Spent with Patient: Total time spent is greater than 50% in coordination of care (as documented) at patient's floor/unit and/or counseling patient: Critical Care Time: Yes Total Critical Care Time: 55 Coding Level of Care Code 46963 INT INP/OBS CARE 3/75MIN Diagnoses Hyperosmolar hyperglycemic state (HHS) E11.00 Hypernatremia E87.0 Stroke-like symptoms R29.90 Acute metabolic encephalopathy G93.41 Alzheimer's dementia G30.9; F02.80 Type 2 diabetes mellitus E11.9 Additional Codes Critical Care Time - Critical Care Time: Yes ([id number])
[2023-08-02 14:37] LABS: Base Excess VBG 0.5 mEq/L; HCO3 VBG 28 mmol/L; Oxygen Saturation VBG < 60.0 %; PCO2 VBG 59 mmHg (38-50); PO2 VBG 20 mmHg; pH VBG 7.29 (7.36-7.41)
[2023-08-02] MEDS ORDERED: PHARMACY GLYCEMIC MGMT CONSULT PRN (15:22)
[2023-08-02] MEDS: OPTIRAY 320 100ml IV ONE (16:18)
[2023-08-02] MEDS: INSULIN ASPART PER UNIT CHARGE SC SCH (16:19)
[2023-08-02 19:55] LABS: BUN Creatinine Ratio 35.1 (10-20); Calcium 8.9 mg/dl (8.6-10.3); Creatinine Clr Calc Pharmacy 28.2 ml/min; Est GFR (African American) 53.2 ml/min; Est GFR (Non-African American) 45.9 ml/min; Magnesium 2.4 mg/dl (1.7-2.4); Phosphorus 1.5 mg/dl (2.5-4.9); Potassium 3.7 mmol/L (3.5-5.1)
[2023-08-02] MEDS ORDERED: POTASSIUM PHOS 3 MMOL/1 ML INFUSION IV STA (20:07)
[2023-08-02] MEDS ORDERED: levETIRAcetam 500 MG/5 ML VIAL IV STA (20:31)
[2023-08-02] MEDS: POTASSIUM PHOSPHATE 15 MMOL in SODIUM CHLORIDE 0.9% 250 ML IV ONE (20:44)
--- NOTE | 2023-08-02 20:44 | Electroencephalogram ---
EEG Procedure Note Date of Service August 02, 2023 Start / End Times Start Time: 6:23 PM End Time: 6:43 PM Referring Physician Guillermina History Severe dementia, concern for seizure activity, recurrent left-sided weakness, altered mental status Home Medication List Medication Instructions Recorded Confirmed Type aspirin 81 mg tablet,delayed 81 mg PO DAILY 08/02/23 08/02/23 History release melatonin 10 mg tablet 10 mg PO HS 08/02/23 08/02/23 History noucoxcy-khrohof-ujrr-lutein tablet 1 tab PO QAM 08/02/23 08/02/23 History olanzapine 5 mg tablet (Zyprexa) See Rx Instructions .Route .COMPLEX 08/02/23 08/02/23 History zinc citrate 16.7 mg chewable 0 mg PO QAM 08/02/23 08/02/23 History tablet Inpatient Medication List Potassium Chloride/Sodium Chloride (1/2 Nss + 20meq Kcl 1000ml) 20 meq in 1,000 mls @ 100 mls/hr IV .Q10H MANJEET Stop: 09/01/23 13:44 Last Admin: 08/02/23 19:36 Dose: 150 mls/hr Documented By: Infusion: 08/02/23 19:36 Dose: Infused Documented By: Admin: 08/02/23 18:26 Dose: Not Given Documented By: LUIS ALBERTO Infusion: 08/02/23 16:52 Dose: 150 mls/hr Documented By: LUIS ALBERTO Admin: 08/02/23 14:31 Dose: 250 mls/hr Documented By: KATHERINE Insulin Human Regular 250 (units/ Sodium Chloride) 250 mls @ 0 mls/hr IV .Q0M MANJEET; Protocol Stop: 09/01/23 13:44 Last Titration: 08/02/23 19:20 Dose: 0 unit/hr, 0 mls/hr Documented By: NICK Co-signed By: SMITA Titration: 08/02/23 18:18 Dose: 2.6 unit/hr, 2.6 mls/hr Documented By: LUIS ALBERTO Co-signed By: ASHLEY Titration: 08/02/23 17:58 Dose: 3.2 unit/hr, 3.2 mls/hr Documented By: LUIS ALBERTO Co-signed By: ASHLEY Titration: 08/02/23 17:18 Dose: 0 unit/hr, 0 mls/hr Documented By: LUIS ALBERTO Co-signed By: JYOTI Titration: 08/02/23 16:13 Dose: 5.4 unit/hr, 5.4 mls/hr Documented By: LUIS ALBERTO Co-signed By: ASHLEY Admin: 08/02/23 14:30 Dose: 4.5 unit/hr, 4.5 mls/hr Documented By: KATHERINE Co-signed By: BEL Insulin Aspart (Insulin Aspart Per Unit Charge) 0 units SC ACHS MANJEET Stop: 09/01/23 16:29 Last Admin: 08/02/23 20:19 Dose: Not Given Documented By: Admin: 08/02/23 16:19 Dose: Not Given Documented By: LUIS ALBERTO Discontinued Medications Sodium Chloride (Nss) 1,000 mls @ 999 mls/hr IV .Q1H1M ONE Stop: 08/02/23 13:25 Last Infusion: 08/02/23 14:29 Dose: Infused Documented By: Admin: 08/02/23 12:51 Dose: 999 mls/hr Documented By: ML Sodium Chloride (Nss) 1,000 mls @ 999 mls/hr IV .Q1H1M ONE Stop: 08/02/23 13:59 Last Infusion: 08/02/23 14:29 Dose: Infused Documented By: Admin: 08/02/23 13:19 Dose: 999 mls/hr Documented By: CALVIN Ioversol (Optiray 320 100ml) 119 ml IV ONCE ONE Stop: 08/02/23 12:46 Last Admin: 08/02/23 16:18 Dose: Not Given Documented By: LUIS ALBERTO Ioversol (Optiray 320 125ml) 119 ml IV ONCE ONE Stop: 08/02/23 12:47 Last Admin: 08/02/23 12:46 Dose: 119 ml Documented By: MELITON Wayne (Hhs Goal Range 250-350 Mg/Dl) 1 each N/A ONE ONE Stop: 08/02/23 13:39 Last Admin: 08/02/23 14:30 Dose: Not Given Documented By: KATHERINE Wayne (Stat Iv Infusion Titration Per Protocol) 1 each N/A NOW STA Stop: 08/02/23 13:39 Last Admin: 08/02/23 14:31 Dose: Not Given Documented By: KATHERINE Wayne (Hhs Goal Range 250-350 Mg/Dl) 1 each N/A ONE ONE Stop: 08/02/23 15:23 Last Admin: 08/02/23 16:18 Dose: Not Given Documented By: LUIS ALBERTO Description This is a 21 electrode EEG with a single channel dedicated to limited EKG. The electrodes were placed in accordance with the International 10-20 system. The background rhythm consists of continuous generalized 4.5 to 5 Hz theta slowing. There is intermittent right posterior temporal delta slowing and associated periodic sharps. There is prominent, fairly continuous, frontal beta activity, amplitude modestly greater on the right. Photic stimulation unremarkable. Interpretation Abnormal awake/drowsy EEG with findings potentially suggestive of focal seizure activity localizing to the posterior right temporal region as well as encephalopathy. Clinical Correlation Discussed with attending hospitalist, Dr. Sarmiento. Recommended starting Keppra, will give a loading dose followed by maintenance dosing. [facility] EEG Procedure Codes Indication for Procedure (1) Seizure: (2) Acute metabolic encephalopathy: Neurology Neurology: 53954 EEG include record awake & drowsy
[2023-08-02] MEDS: GADOBUTROL 65ML VIAL IV ONE (21:40)
[2023-08-02] MEDS: levETIRAcetam IV 1,000 MG in 0.9 % SODIUM CHLORIDE 100 ML IV STA (22:06)
[2023-08-02] MEDS: HEPARIN SOD 5,000 UNIT/0.5 ML VIAL SQ SCH (22:06)
[2023-08-02] MEDS: D5W AND 1/2NSS + 20MEQ KCL 20 MEQ/1,000 ML BAG IV SCH (22:13)
--- NOTE | 2023-08-02 22:54 | Magnetic Resonance Report ---
Exam(s): MRI HEAD IV Amt: 4.5ml gadavist EXAM: MR Head With Intravenous Contrast CLINICAL HISTORY: Reason for exam: right posterior temporal seizure activity. TECHNIQUE: Magnetic resonance images of the head/brain with intravenous contrast in multiple planes. CONTRAST: Patient received 4.5ml gadavist of IV contrast COMPARISON: Comparison made to prior head CT from December 20, 2021. FINDINGS: Brain: Moderate ventriculomegaly. The flow voids at the base of the brain are intact. No mass. No hemorrhage. No acute infarct. Advanced bilateral hippocampal atrophy. Ventricles: Moderate to advanced ventricular megaly. Bones/joints: Unremarkable. No acute fracture. Sinuses: Unremarkable as visualized. No acute sinusitis. Mastoid air cells: Unremarkable as visualized. No mastoid effusion. Orbits: Unremarkable as visualized. IMPRESSION: No evidence of acute intracranial pathology. Electronically signed by: Diya Briceño MD 08/02/23 22:53 PM
[2023-08-02 23:35] LABS: BUN Creatinine Ratio 33.6 (10-20); Calcium 8.5 mg/dl (8.6-10.3); Creatinine Clr Calc Pharmacy 29.3 ml/min; Est GFR (African American) 55.6 ml/min; Magnesium 2.2 mg/dl (1.7-2.4); Potassium 4.3 mmol/L (3.5-5.1)
[2023-08-03 02:53] LABS: BUN Creatinine Ratio 33.3 (10-20); Calcium 8.1 mg/dl (8.6-10.3); Creatinine Clr Calc Pharmacy 30.7 ml/min; Est GFR (African American) 58.9 ml/min; Est GFR (Non-African American) 50.8 ml/min; Magnesium 2.2 mg/dl (1.7-2.4); Phosphorus 3.3 mg/dl (2.5-4.9); Potassium 4.2 mmol/L (3.5-5.1)
--- NOTE | 2023-08-03 07:28 | Hospitalist Progress Note ---
Date of Service August 03, 2023 Assessment & Plan (1) Hyperosmolar hyperglycemic state (HHS): Plan: HbA1C 11.0 Initial fluid resuscitation with NSS 2L bolus DW5 + half NSS KCl to 150ml/hr IV insulin drip with aim 250-350 Pharmacy following q4h BMP/VBG/PO/Mg (2) Hypernatremia: Plan: Suspected due to osmotic diuresis with hyperglycemia. Corrected sodium for glucose 173 Rate of correction 0.5 meq/L/hr with half NSS with serum Na 170 approximately 114 ml/hr q4h Na, will adjust fluids as needed (3) Stroke-like symptoms: Plan: EEG was concerning for focal seizure. Neurology consulted and recommended continuing Keppra 500mg BID Brain MRI unremarkable (4) Acute metabolic encephalopathy: Plan: Possible need for palliative care approach but given current reversible etiology with hypernatremia will reassess following treatment (5) Alzheimer's dementia: Plan: Hold olanzapine as may be having seizure and current decreased responsiveness Will need SLT consult prior to diet, NPO for now (6) Type 2 diabetes mellitus: Plan: On no medication on this at baseline HbA1C 8.4 2021 therefore suspect she has had this for some time. Plan VTE Prophylaxis - heparin 5000 units SQ BID Diet - NPO Disposition - admit to PCU Admission and Anticipated Discharge Date Admission Date: August 02, 2023 Supervising Physician Co-Signing Physician Notes Attending Physician Supervision Note: I independently interviewed and examined the patient and verified the moore history and physical, reviewed labs and image studies and agree with findings and care plan noted above. HHS/Severe Hypernatremia in setting of worsening dementia - Brought up goals of care discussion to sitting at bedside. Will continue further discussion. Subjective 83 year old female with hx of dementia (on olanzapine for ~4 years) and DVT presenting with AMS and stroke like symptoms (lack of speech and reduced interactions) for about 2 days according to by the bedside. Patient occasionally has unresponsive episodes that usually resolves after an hour but this episode lasted much longer which prompted the patient's to bring her into the ER for concern of stroke. Patient was reported to have left facial droop and tongue protrusion on arrival in the ER with blood glucose at 241 and A1C at 11. No history of previous dx of DM. Patient's notes that she was able to sit up 2 weeks ago and normally tracts motion with her eyes but is often unable to process long sentences and commands. Unable to ambulate, dress or feed herself without assistance. Patient is able to make decisions when given choices but is takes a while to make the decision. Patient has Baseline rigidity but jamal oliveira notes progressive decline in patient's condition over the last 6-8 months. Review of Systems Review of Systems: Patient was unarousable and laying in bed with eyes closed. unable to get a ROS Physical Exam Physical Exam: General: Not alert and not oriented x 3 Not well nourished, resting with eyes closed Head: left sided facial droop, mouth open, neck stiff with head turned to the left Heart: normal r/r, no r/m/g, no edema, distal and radial pulses 2+ b/l lungs: CTA b/l Abd. nondistended, normal BS, Non tender to palpation, palpable mass in lower abd. neurologic: tremulous and rigidity in the upper extremity, absent knee DTR Results & Data Results & Data Vital Signs (Past 12 Hours) Vital Signs Temp Pulse Pulse Resp BP Pulse Ox O2 Del Method 08/03/23 02:57 36.8 C 86 19 106/53 L 94 Room Air 08/03/23 00:36 103 H 08/03/23 00:05 Room Air 08/02/23 22:57 37.2 C 97 H 22 115/66 95 Room Air 08/02/23 19:21 36.9 C 110 H 19 110/95 98 Room Air Diagnostic Findings CXR: cardiomegaly Unremarkable head and neck CT/CTA EEG concerning for focal partial seizure Brain MRI unremarkable Resident Activity Tracking Resident Involvement: Resident Care Provided Care Provided: Adult Hospital Medicine
[2023-08-03 07:59] LABS: Magnesium 2.2 mg/dl (1.7-2.4); Phosphorus 2.5 mg/dl (2.5-4.9)
--- NOTE | 2023-08-03 09:59 | Neurology Consultation ---
Date of Consultation August 03, 2023 Assessment & Plan (1) Alzheimer's dementia: (2) Seizure: (3) Hyperosmolar hyperglycemic state (HHS): Plan 83-year-old female with advanced Alzheimer's dementia, admitted with hyperosmolar hyperglycemic state, hypernatremia, acute metabolic encephalopathy, recurrent episodes of altered mental status as well as generalized and focal dystonia. Currently patient is acutely encephalopathic with dystonic rotation of the head to the left, no associated gaze to vergence or nystagmus. No posturing of the limbs. EEG indicates focal epileptiform abnormalities localizing to the posterior right cerebral hemisphere as well as encephalopathy. Brain MRI negative for acute process. Patient was given a 1000 mg loading dose of Keppra. Continue with Keppra 500 mg IV twice daily. Continue medical management of hyperosmolar hyperglycemic state and hyponatremia. Continue to hold olanzapine. If patient's neurologic status does not improve with treatment of her metabolic encephalopathy, would consider switching from Keppra to Depakote (consider Depakote 500 mg IV every 8 hours.) Would not recommend starting a cognitive enhancer for her dementia such as donepezil or memantine in the context of her acute medical illness and advanced age of her dementia. If patient's acute encephalopathy resolves, would consider switching from olanzapine to an alternative atypical neuroleptic such as Rexulti or Seroquel. History of Present Illness Reason for Consultation: seizures Requesting Physician: Guillermina Attending Physician: Haydee Gutierrez MD History of Present Illness The patient is an 83-year-old female with a history of advanced Alzheimer's dementia, lives at home with her spouse who is her primary caregiver. Her dementia has continued to decline over several years, at baseline she is able to ambulate to a limited degree with assistance, she has profound impairment of memory and general cognitive function and often does not recognize family members. She has become increasingly agitated and has been prescribed olanzapine by a dementia specialist at another institution. She has not been prescribed donepezil or memantine. Her spouse indicates that she has been exhibiting episodes of increased generalized dystonia as well as periodic alteration in mental status, especially her speech which will oftentimes be incomprehensible. She is incontinent. She is sometimes able to feed herself. She had presented to the [facility] emergency department back in December with a transient alteration in mental status potentially concerning for stroke although reportedly had a negative evaluation at that time. The patient had presented to the [facility] emergency department yesterday for sudden change in mental status, suddenly stopped speaking and interacting, not really following commands, reported stiffening of the limbs. She did have a telestroke consultation, etiology of episode unclear, not felt to be a TNKase candidate. A CTA of the head and neck were unremarkable, no hemorrhage or acute process, no large vessel occlusion. There was considerable generalized atrophy and chronic microvascular ischemic change, I independently reviewed these images. An EEG was completed early yesterday evening. The study revealed generalized slowing, focal right posterior temporal slowing and associated periodic sharps potentially consistent with focal seizure activity, as well as encephalopathy. Brain MRI reveals generalized atrophy and chronic microvascular ischemic disease. No evidence of acute stroke. No seizure focus identified. Patient has been admitted with hyperosmolar hyperglycemic state, hypernatremia, acute metabolic encephalopathy, in addition to the above neurologic presentation. Her is at bedside who provided much of the above history. The patient was unable to participate with history as she was fairly obtunded during my assessment. Allergies Allergy/AdvReac Type Severity Reaction Status Date / Time clavulanic acid Allergy Unknown blisters Verified 08/02/23 15:42 haloperidol [From Haldol] AdvReac Severe COMBATIVE, Verified 08/02/23 15:42 AGITATED Home Medications Medication Instructions Recorded Confirmed Type aspirin 81 mg tablet,delayed 81 mg PO DAILY 08/02/23 08/02/23 History release melatonin 10 mg tablet 10 mg PO HS 08/02/23 08/02/23 History wyefityj-kcncrzc-txph-lutein tablet 1 tab PO QAM 08/02/23 08/02/23 History olanzapine 5 mg tablet (Zyprexa) See Rx Instructions .Route .COMPLEX 08/02/23 08/02/23 History zinc citrate 16.7 mg chewable 0 mg PO QAM 08/02/23 08/02/23 History tablet Patient History Medical History Iliac DVT (deep venous thrombosis) Type 2 diabetes mellitus COVID-19 Colitis Alzheimer's dementia Surgical History H/O umbilical hernia repair Family History Father Dementia Mother Cancer Social History Smoking Status: Former smoker Tobacco Type: Cigarettes Hx Alcohol Use: No Hx Substance Use: Yes Preferred Language: Yoruba Communication Ability: Unable Electronic Technologist Required: No Beliefs That Will Affect Care: None marital status: Current Living Situation: Spouse Current Living Situation Comment: lives in [place] with current occupation: was a beautician How many Children do You have: 4 How many Children do You have Comment: 1 child is Other Information That Helps Us Care for You: No Feels Safe at Home: Yes Safety Concerns: Feels Safe At This Time Assistive Devices: Cane, Glasses and Walker Review of Systems Constitutional: Patient unable to provide review of systems due to altered mental status. Exam (Neuro) Constitutional: well developed, + thin and + behavioral limitations Eyes: normal visual harden by confrontation, PERRL and EOM intact bilaterally; no nystagmus Neurologic: Oriented to:: Other (Patient obtunded) Attention: negative Span Intact Cranial Nerves: Normal III, IV, (Pupils equal round reactive to light, no gaze deviation) and VII Rigidity: Rigidity (Generalized rigidity/dystonia, increased resistance to passive movement) Muscle Bulk/Involuntary Movements: No Involuntary Movements Deep Tendon Reflexes: Rt Triceps: 2+, Lt Triceps: 2+, Rt Biceps: 2+, Lt Biceps: 2+, Rt Brachioradialis: 2+, Lt Brachioradialis: 2+, Rt Patellar: 2+ and Lt Patellar: 2+ Special Tests: Babinski Present (Plantars withdrawal bilaterally) Details: Limited neurologic examination due to obtunded status. Patient nonverbal. She briefly keeps eyes open with prolonged tactile stimulation. Does not follow commands. Generalized dystonia, rigidity noted, keeps head rigidly turned to the left, no associated gaze deviation or nystagmus. No decerebrate or decorticate posturing of the limbs. Results & Data Vital Signs (Past 12 Hours) Vital Signs Temp Pulse Pulse Resp BP Pulse Ox O2 Del Method 08/03/23 09:34 79 08/03/23 02:57 36.8 C 86 19 106/53 L 94 Room Air 08/03/23 00:36 103 H 08/03/23 00:05 Room Air 08/02/23 22:57 37.2 C 97 H 22 115/66 95 Room Air Laboratory Results WBC 9.67, hemoglobin 15.3, hematocrit 50.0, platelet count 205, sodium 159, potassium 4.3, BUN 36, creatinine 1.07, glucose 241, hemoglobin A1c 11.0, osmolality 384, calcium 8.5, magnesium 2.2, AST 13, ALT 27, TSH 3.[address] of the head, CTA of the head and neck, and brain MRI are as described in the HPI, I independently reviewed these images. An electrocardiogram reveals sinus tachycardia, 109 bpm. Coding Level of Care Code 45532 INT INP/OBS CARE MIN Diagnoses Alzheimer's dementia G30.9; F02.80 Seizure R56.9 Hyperosmolar hyperglycemic state (HHS) E11.00 Time Spent (min) 90 Comment Total time includes patient contact, chart review, counseling, note preparation
[2023-08-03] MEDS: levETIRAcetam IV 500 MG in SODIUM CHLOR 0.9% MINI-B 100 ML IV SCH (10:06)
[2023-08-03 10:23] LABS: Anion Gap 4 (3-11); BUN Creatinine Ratio 31.9 (10-20); Blood Urea Nitrogen 30 mg/dl (6-23); Calcium 8.2 mg/dl (8.6-10.3); Carbon Dioxide 25 mmol/L (21-32); Chloride 127 mmol/L (98-107); Creatinine Clr Calc Pharmacy 34.6 ml/min; Est GFR (Non-African American) 56.1 ml/min; Glucose 231 mg/dl (70-99(Fasting)); Magnesium 2.3 mg/dl (1.7-2.4); Phosphorus 2.5 mg/dl (2.5-4.9); Sodium 156 mmol/L (136-145)
[2023-08-03 14:54] LABS: BUN Creatinine Ratio 29.5 (10-20); Calcium 8.2 mg/dl (8.6-10.3); Creatinine Clr Calc Pharmacy 34.2 ml/min; Est GFR (African American) 64.2 ml/min; Est GFR (Non-African American) 55.4 ml/min; Potassium 4.1 mmol/L (3.5-5.1)
--- NOTE | 2023-08-03 15:09 | Pharmacy Report ---
Pharmacy Glycemic Short Note 2 - Date of Service August 03, 2023 - Glycemic Short BSG Results (Last 24 hours): 08/02/23 08/02/23 08/02/23 15:34 16:09 16:10 Glucose 421 H* POC Glucose 379 H* 457 H* 403 H* 08/02/23 08/02/23 08/02/23 17:10 18:03 19:08 Glucose 174 H POC Glucose 269 H 228 H 08/02/23 08/02/23 08/02/23 19:14 20:15 22:02 Glucose POC Glucose 181 H 163 H 152 H 08/02/23 08/02/23 08/03/23 22:57 23:04 00:09 Glucose 241 H POC Glucose 236 H 287 H 08/03/23 08/03/23 08/03/23 01:11 02:04 02:06 Glucose 367 H* POC Glucose 322 H* 317 H* 364 H* 08/03/23 08/03/23 08/03/23 02:59 05:05 07:05 Glucose POC Glucose 310 H* 254 H 224 H 08/03/23 08/03/23 08/03/23 08:12 08:59 09:30 Glucose 231 H POC Glucose 229 H 238 H 08/03/23 08/03/23 08/03/23 10:05 11:08 12:18 Glucose POC Glucose 209 H 227 H 158 H 08/03/23 08/03/23 08/03/23 12:48 13:08 13:41 Glucose POC Glucose 204 H 214 H 239 H 08/03/23 08/03/23 08/03/23 13:59 14:20 14:38 Glucose 284 H POC Glucose 244 H 232 H 288 H OUTPATIENT ANTIDIABETIC REGIMEN: * n/A * A1c 11% 08/02/23 ASSESSMENT: * Patient admitted with [facility], insulin infusion initiated per protocol. Patient with dementia at baseline but severely altered on admission with possible seizure activity. Initial Measured serum osmolality 384, calculated 375 mOsm/kg. * Corrected sodium significantly elevated (168-173). Will need slow correction (goal 10-12 meq over 1st 24 hours). * Plan to continue insulin infusion until osmolality improved/improvement in mental status. * Current calculated serum osmolality 332 mOsm/kg, corrected sodium 157- currently on D51/2 + 20 kcl @ 150 ml/hr to be re-evaluated by hospitalist team PLAN FOR INPATIENT GLYCEMIC CONTROL: * Insulin infusion currently @ 0.7 units/hr
[2023-08-03] MEDS: ACETAMINOPHEN 1,000 MG/100 ML VIAL IV STA (17:53)
[2023-08-03 18:48] LABS: BUN Creatinine Ratio 28.3 (10-20); Calcium 8.2 mg/dl (8.6-10.3); Creatinine Clr Calc Pharmacy 32.8 ml/min; Est GFR (African American) 61.1 ml/min; Est GFR (Non-African American) 52.7 ml/min; Potassium 4.3 mmol/L (3.5-5.1)
[2023-08-03 22:31] LABS: BUN Creatinine Ratio 29.7 (10-20); Calcium 8.4 mg/dl (8.6-10.3); Creatinine Clr Calc Pharmacy 32.2 ml/min; Est GFR (African American) 59.6 ml/min; Est GFR (Non-African American) 51.4 ml/min; Potassium 4.5 mmol/L (3.5-5.1)
--- NOTE | 2023-08-04 09:14 | Hospitalist Progress Note ---
Date of Service August 04, 2023 Assessment & Plan (1) Hyperosmolar hyperglycemic state (HHS): Plan: HbA1C 11.0 Initial fluid resuscitation with NSS 2L bolus DW5 + half NSS KCl @ 100ml/hr IV insulin drip with aim 150-250, will increase BSG goal if Na increases with increased insulin Pharmacy following q4h BMP/VBG/PO/Mg (2) Hypernatremia: Plan: Suspected due to osmotic diuresis with hyperglycemia. Corrected sodium for glucose 154 today q4h Na, will adjust fluids as needed (3) Stroke-like symptoms: Plan: EEG was concerning for focal seizure. Neurology consulted and recommended continuing Keppra 500mg BID Brain MRI unremarkable (4) Acute metabolic encephalopathy: Plan: Possible need for palliative care approach but given current reversible etiology with hypernatremia will reassess following treatment (5) Alzheimer's dementia: Plan: Hold olanzapine as may be having seizure and current decreased responsiveness Will need SLT consult prior to diet, NPO for now (6) Type 2 diabetes mellitus: Plan: On no medication on this at baseline HbA1C 8.4 2021 therefore suspect she has had this for some time. Plan VTE Prophylaxis - heparin 5000 units SQ BID Diet - NPO Disposition - admit to PCU Admission and Anticipated Discharge Date Admission Date: August 02, 2023 Supervising Physician Co-Signing Physician Notes Attending Physician Supervision Note: I independently interviewed and examined the patient and verified the moore history and physical, reviewed labs and image studies and agree with findings and care plan noted above. Metabolic encephalopathy - multifactorial. Seizure - EEG -focal epileptiform abnormality. Started on Keppra - continue. Hold olanzapine since it lowers seizure threshold -If encephalopathy does not improve - planning to switch Depakote. -once encephalopathy resolves, would consider switching from olanzapine to Rexulti or Seroquel. Fever -urine culture negative. No hypoxia. Normal WBC count. -Check chest x-ray since high risk for aspiration considering mental status. Severe Hypernatremia -continue hydration with free water Severe dementia - brought up goals of care discussion /3 to sitting at bedside. Will continue further discussion. Heparin SQ Subjective Patient seen and evaluated at bedside this morning. No acute events overnight. Remains encephalopathic vs delerium on dementia. Not interactive. Family at bedside reports she woke overnight but was disoriented. Review of Systems Review of Systems: Limited by encephalopathy/dementia Physical Exam Physical Exam: Constitutional: cachectic appearing, not interactive HEENT: NCAT CV: Extremities well perfused, no cyanosis/edema Resp: no increased work of breathing MSK: no gross deformities appreciated Skin: warm, dry, no rash appreciated Neuro: not interactive Results & Data Results & Data Vital Signs (Past 12 Hours) Vital Signs Temp Pulse Pulse Resp BP Pulse Ox O2 Del Method 08/04/23 08:00 36.8 C 77 19 131/77 93 Room Air 08/04/23 02:55 36.8 C 96 H 22 149/79 H 90 Room Air 08/03/23 23:59 73 08/03/23 23:30 36.8 C 76 22 148/83 H 92 Room Air 08/03/23 21:19 Room Air Resident Activity Tracking Resident Involvement: Resident Care Provided Care Provided: Adult Hospital Medicine
[2023-08-04 09:40] LABS: Base Excess VBG -1.9 mEq/L; HCO3 VBG 22 mmol/L; PCO2 VBG 35 mmHg (38-50); PO2 VBG 52 mmHg; pH VBG 7.41 (7.36-7.41)
--- NOTE | 2023-08-04 09:59 | Neurology Progress Note ---
Date of Service August 04, 2023 Assessment & Plan (1) Seizure: (2) Hyperosmolar hyperglycemic state (HHS): Admission and Anticipated Discharge Date Admission Date: August 02, 2023 Subjective pt this morning sleepy but arousable and opening eyes spontaneously. pt making eye contacts. no limb movements. she still with jaw movements that is chronic in nature. Results & Data Vital Signs (Past 12 Hours) Vital Signs Temp Pulse Pulse Resp BP Pulse Ox O2 Del Method 08/04/23 08:00 36.8 C 77 19 131/77 93 Room Air 08/04/23 02:55 36.8 C 96 H 22 149/79 H 90 Room Air 08/03/23 23:59 73 08/03/23 23:30 36.8 C 76 22 148/83 H 92 Room Air Exam (Neuro) Physical Exam: Neuro: Mental: drowsy, opening eyes at times and making eye contact. non-verbal. CN: PERRL, slight jaw movements to left (chronic). blinks eyes. Motor: diffuse increase tone t/o all limbs. jaw movements at times. no limbs movements noted. gait: deferred. Impression: 83-year-old female with advanced Alzheimer's dementia, admitted with hyperosmolar hyperglycemic state, hypernatremia, acute metabolic encephalopathy, recurrent episodes of altered mental status as well as generalized and focal dystonia. pt seems to be slightly improved with now making eye contacts and opening them spontaneously. Seizure appears to be controlled now. Pt may also have UTI. Recommendations: consider tx for UTI continue tx for hypernatremia and hyperglycemia continue keppra as now IV hydration and nutritional care. continue supportive care as now. likely need [facility] rehab. Chart reviewed I have spent more than 50% educating patient about potential diagnosis and neurological evaluation and coordinating care with patient's treatment team. Total time spent (including chart review and coordination of care): 50 min (this includes chart review). PG Care Time/CCT Total # of Minutes Spent Total Time Spent with Patient: Total time spent is greater than 50% in coordination of care (as documented) at patient's floor/unit and/or counseling patient: Coding Level of Care Code 19828 SUB INP/OBS CARE 3/50MIN Diagnoses Seizure R56.9 Hyperosmolar hyperglycemic state (HHS) E11.00
[2023-08-04 10:11] LABS: Hematocrit (blood only) 37.1 % (37.0-47.0); Hemoglobin 11.4 g/dl (12.0-16.0); Mean Corpuscular Hemoglobin 30.2 pg (25.0-34.0); Mean Corpuscular Hgb Conc 30.7 g/dL (32.0-36.0); Mean Corpuscular Volume 98.4 fL (80.0-100.0); Mean Platelet Volume 11.3 fL (9.4-12.4); Platelet Count 94 K/uL (130-400); Platelet Estimate Decreased (Normal); RDW Coefficient of Variation 13.5 % (11.5-14.5); RDW Standard Deviation 49.2 fL (36.4-46.3); Red Blood Count 3.77 M/uL (4.20-5.40); White Blood Count 8.77 K/ul (4.8-10.8)
[2023-08-04 10:17] LABS: Albumin Globulin Ratio 1.3 (0.9-2); BUN Creatinine Ratio 30.2 (10-20); Bilirubin,Total 0.5 mg/dl (0.2-1.0); Calcium 8.1 mg/dl (8.6-10.3); Creatinine Clr Calc Pharmacy 37.6 ml/min; Est GFR (African American) 72.4 ml/min; Est GFR (Non-African American) 62.5 ml/min; Globulin 2.4 gm/dl (2.5-4.0); Magnesium 2.1 mg/dl (1.7-2.4); Potassium 4.1 mmol/L (3.5-5.1); Total Protein 5.4 gm/dl (6.0-8.3)
--- NOTE | 2023-08-04 11:26 | XRay Report ---
SINGLE VIEW CHEST CLINICAL HISTORY: Hypernatremia. FINDINGS: An AP, portable, upright chest radiograph is compared to study dated 08/02/2023. The examinat ion is degraded by portable technique and patient rotation. The heart is enlarged noting atheroscler otic calcification of the thoracic aorta. The pulmonary vasculature is noncongested. Chronic intersti tial thickening is similar to previous. There is mild bibasilar scarring/atelectasis. No airspace con solidation or large pleural effusion is identified. No pneumothorax is seen. The skeletal structures are osteopenic. The bony thorax is grossly intact. Arthritic change is noted in the shoulders and spi ne. An IVC filter is partially visualized in the upper abdomen. IMPRESSION: Cardiomegaly with no active disease in the chest. ACT 112: Negative or not required by law. Electronically signed by: Eric Dunn M.D. 08/04/2023 11:25 AM
[2023-08-04] MEDS: D5W AND 1/2NSS + 20MEQ KCL 20 MEQ/1,000 ML BAG IV SCH (11:36)
[2023-08-04] MEDS: INSULIN PROTOCOL GOAL RANGE ONE (13:13)
[2023-08-04 13:27] LABS: Base Excess VBG -1.8 mEq/L; HCO3 VBG 23 mmol/L; Oxygen Saturation VBG 74.8 %; PCO2 VBG 39 mmHg (38-50); PO2 VBG 31 mmHg; pH VBG 7.38 (7.36-7.41)
[2023-08-04 13:45] LABS: BUN Creatinine Ratio 28.7 (10-20); Creatinine Clr Calc Pharmacy 37.1 ml/min; Est GFR (African American) 71.4 ml/min; Est GFR (Non-African American) 61.6 ml/min; Magnesium 2.1 mg/dl (1.7-2.4); Potassium 4.1 mmol/L (3.5-5.1)
--- NOTE | 2023-08-04 14:32 | Pharmacy Report ---
Pharmacy Glycemic Short Note 2 - Date of Service August 04, 2023 - Glycemic Short BSG Results (Last 24 hours): 08/03/23 08/03/23 08/03/23 14:20 14:38 15:59 Glucose 284 H POC Glucose 232 H 288 H 326 H* 08/03/23 08/03/23 08/03/23 16:00 17:15 18:12 Glucose POC Glucose 305 H* 266 H 305 H* 08/03/23 08/03/23 08/03/23 18:13 19:54 21:26 Glucose 350 H* 341 H* POC Glucose 383 H* 08/03/23 08/04/23 08/04/23 21:56 00:02 02:02 Glucose POC Glucose 355 H* 286 H 298 H 08/04/23 08/04/23 08/04/23 04:01 07:56 07:57 Glucose POC Glucose 315 H* 335 H* 253 H 08/04/23 08/04/23 08/04/23 09:23 11:45 12:51 Glucose 292 H 258 H POC Glucose 202 H OUTPATIENT ANTIDIABETIC REGIMEN: * n/A * A1c 11% 08/02/23 ASSESSMENT: 08/03: * Patient remains on IV insulin infusion for HHS. BSGs have ranged from 202 - 335 mg/dL thus far today. * Serum osmolality trending downward, calculated serum osmo of 325 mOsm/kg and corrected sodium of 153 meq/L this morning. * Per discussion with Hospitalist, mental status has not improved but likely cause is multifactorial (electrolyte abnormalities, progression of dementia, addition of antiepileptics). Since BSGs have been consistently at goal and serum osmo is improving, it was decided to lower goal range to 150-250 mg/dL. 08/02: * Patient admitted with HHS, insulin infusion initiated per protocol. Patient with dementia at baseline but severely altered on admission with possible seizure activity. Initial Measured serum osmolality 384, calculated 375 mOsm/kg. * Corrected sodium significantly elevated (168-173). Will need slow correction (goal 10-12 meq over 1st 24 hours). * Plan to continue insulin infusion until osmolality improved/improvement in mental status. * Current calculated serum osmolality 332 mOsm/kg, corrected sodium 157- currently on D51/2 + 20 kcl @ 150 ml/hr to be re-evaluated by hospitalist team PLAN FOR INPATIENT GLYCEMIC CONTROL: * Continue IV Insulin infusion
[2023-08-04] MEDS ORDERED: GLUCAGON FOR INJ 1 MG VIAL IM PRN (14:45)
[2023-08-04] MEDS ORDERED: GLUCOSE 10 TAB/TUBE PO PRN (14:45)
[2023-08-04] MEDS ORDERED: DEXTROSE 50% 50 ML SYRINGE IV PRN (14:45)
[2023-08-04] MEDS ORDERED: GLUCOSE 40% GEL 15 GM TUBE PO PRN (14:45)
[2023-08-04] MEDS ORDERED: CARBOHYDRATES FOR HYPOGLYCEMIA PO PRN (14:45)
[2023-08-04 17:06] LABS: Base Excess VBG -1.5 mEq/L; HCO3 VBG 24 mmol/L; Oxygen Saturation VBG < 60.0 %; PCO2 VBG 41 mmHg (38-50); PO2 VBG < 20 mmHg; pH VBG 7.37 (7.36-7.41)
[2023-08-04 17:30] LABS: BUN Creatinine Ratio 25.9 (10-20); Calcium 8.1 mg/dl (8.6-10.3); Est GFR (African American) 73.4 ml/min; Est GFR (Non-African American) 63.4 ml/min; Potassium 4.2 mmol/L (3.5-5.1)
[2023-08-04 21:08] LABS: Base Excess VBG -2.8 mEq/L; HCO3 VBG 22 mmol/L; Oxygen Saturation VBG 65.3 %; PCO2 VBG 37 mmHg (38-50); PO2 VBG 33 mmHg; pH VBG 7.38 (7.36-7.41)
[2023-08-04 21:33] LABS: BUN Creatinine Ratio 25.6 (10-20); Calcium 8.1 mg/dl (8.6-10.3); Creatinine Clr Calc Pharmacy 41.4 ml/min; Est GFR (African American) 81.5 ml/min; Est GFR (Non-African American) 70.3 ml/min; Magnesium 1.9 mg/dl (1.7-2.4)
[2023-08-05 00:40] LABS: Base Excess VBG -2.5 mEq/L; HCO3 VBG 23 mmol/L; Oxygen Saturation VBG < 60.0 %; PCO2 VBG 39 mmHg (38-50); PO2 VBG 24 mmHg; pH VBG 7.37 (7.36-7.41)
[2023-08-05 01:01] LABS: BUN Creatinine Ratio 23.8 (10-20); Creatinine Clr Calc Pharmacy 40.4 ml/min; Est GFR (Non-African American) 68.2 ml/min; Magnesium 1.9 mg/dl (1.7-2.4); Potassium 4.1 mmol/L (3.5-5.1)
[2023-08-05 05:36] LABS: Base Excess VBG -1.3 mEq/L; HCO3 VBG 23 mmol/L; Oxygen Saturation VBG 79.5 %; PCO2 VBG 35 mmHg (38-50); PO2 VBG 44 mmHg; pH VBG 7.42 (7.36-7.41)
[2023-08-05 06:00] LABS: BUN Creatinine Ratio 22.7 (10-20); Calcium 7.9 mg/dl (8.6-10.3); Creatinine Clr Calc Pharmacy 43.1 ml/min; Est GFR (African American) 85.4 ml/min; Est GFR (Non-African American) 73.7 ml/min; Magnesium 1.7 mg/dl (1.7-2.4); Potassium 4.2 mmol/L (3.5-5.1)
[2023-08-05 08:41] LABS: HCO3 VBG 23 mmol/L; Oxygen Saturation VBG < 60.0 %; PCO2 VBG 40 mmHg (38-50); PO2 VBG 28 mmHg; pH VBG 7.37 (7.36-7.41)
[2023-08-05 09:06] LABS: BUN Creatinine Ratio 20.5 (10-20); Calcium 7.6 mg/dl (8.6-10.3); Creatinine Clr Calc Pharmacy 48.3 ml/min; Est GFR (African American) 88.3 ml/min; Est GFR (Non-African American) 76.2 ml/min; Magnesium 1.7 mg/dl (1.7-2.4); Potassium 4.2 mmol/L (3.5-5.1)
--- NOTE | 2023-08-05 09:48 | Hospitalist Progress Note ---
Date of Service August 05, 2023 Assessment & Plan (1) Hyperosmolar hyperglycemic state (HHS): Plan: HbA1C 11.0 Initial fluid resuscitation with NSS 2L bolus DW5 + half NSS KCl @ 150ml/hr IV insulin drip with aim 100-200 Pharmacy following q4h BMP/VBG/PO/Mg (2) Hypernatremia: Plan: Suspected due to osmotic diuresis with hyperglycemia. Corrected sodium for glucose 147-149 today q4h Na, will adjust fluids as needed (3) Stroke-like symptoms: Plan: EEG was concerning for focal seizure. Neurology consulted and recommended continuing Keppra 500mg BID Brain MRI unremarkable Due to AMS, will consider changing medication to Depakote (4) Acute metabolic encephalopathy: Plan: Possible need for palliative care approach Will have GOC discussion with family today (5) Alzheimer's dementia: Plan: Hold olanzapine as may be having seizure and current decreased responsiveness Will need SLT consult prior to diet, NPO for now (6) Type 2 diabetes mellitus: Plan: On no medication on this at baseline HbA1C 8.4 2021 therefore suspect she has had this for some time. Plan VTE Prophylaxis - heparin 5000 units SQ BID Diet - NPO Disposition - admit to PCU Admission and Anticipated Discharge Date Admission Date: August 02, 2023 Supervising Physician Co-Signing Physician Notes Attending Physician Supervision Note: I independently interviewed and examined the patient and verified the moore history and physical, reviewed labs and image studies and agree with findings and care plan noted above. Metabolic encephalopathy - multifactorial. -continue IVF and NPO status since not alert. -speech therapy hasn't been able to assess swallowing d/t mental status Seizure - EEG -focal epileptiform abnormality. Started on Keppra - continue. Hold olanzapine since it lowers seizure threshold -Per neuro 08/03 - continue keppra for now. -once encephalopathy resolves, would consider switching from olanzapine to Rexulti or Seroquel. Fever -urine culture negative. No hypoxia. Normal WBC count. CXR with no acute pathology. -? sec to atelectasis. Severe Hypernatremia - resolved. HHS - resolved. A1c 11. Severe dementia - will continue discussion regarding goals of care. Understands the prominent role of worsening dementia into the current presentation. Heparin SQ Subjective Patient seen and evaluated at bedside this morning. No acute events overnight. Pt arousable this am, still not making meaningful eye contact or conversation. Na improved. Spoke to re: goals of care; will discuss with family. Review of Systems Review of Systems: Limited by encephalopathy/dementia Physical Exam Physical Exam: Constitutional: cachectic appearing, not interactive HEENT: NCAT CV: RRR, -M/R/G. Extremities well perfused, no cyanosis/edema Resp: CTAB, no increased work of breathing MSK: no gross deformities appreciated Skin: warm, dry, no rash appreciated Neuro: not interactive Results & Data Results & Data Vital Signs (Past 12 Hours) Vital Signs Temp Pulse Pulse Resp BP Pulse Ox O2 Del Method 08/05/23 08:10 36.8 C 68 17 127/90 95 Room Air 08/05/23 02:31 37.5 C 70 18 106/72 96 Room Air 08/04/23 23:36 82 08/04/23 22:33 38.1 C H 87 24 151/80 H 96 Room Air Resident Activity Tracking Resident Involvement: Resident Care Provided Care Provided: Adult Hospital Medicine
--- NOTE | 2023-08-05 10:56 | Neurology Progress Note ---
Date of Service August 05, 2023 Assessment & Plan (1) Hyperosmolar hyperglycemic state (HHS): Admission and Anticipated Discharge Date Admission Date: August 02, 2023 Subjective pt this morning alert and looking around and able to swallow pudding and ice chips given by the speech path. Results & Data Vital Signs (Past 12 Hours) Vital Signs Temp Pulse Pulse Resp BP Pulse Ox O2 Del Method 08/05/23 08:10 36.8 C 68 17 127/90 95 Room Air 08/05/23 02:31 37.5 C 70 18 106/72 96 Room Air 08/04/23 23:36 82 Exam (Neuro) Physical Exam: Neuro: Mental: very much alert and eating pudding and ice chips and making good eye contacts. non-verbal. CN: PERRL, making good chewing motion and swallowing soft food well. looking around with full EOM. Motor: diffuse increase tone t/o all limbs. . not much abnormal movements or dykinesia seen. gait: deferred. Impression: 83-year-old female with advanced Alzheimer's dementia, admitted with hyperosmolar hyperglycemic state, hypernatremia, acute metabolic encephalopathy, recurrent episodes of altered mental status as well as generalized and focal dystonia. pt appears to be much improved and now fully alert and eating soft food when given. Recommendations: continue tx for hypernatremia and hyperglycemia continue keppra IV hydration and nutritional care. continue supportive care as now. 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 not much to add at this point from neurology. pt's wish to f/u with me as outpt when discharged. routine f/u with me reasonable when discharged. please call again if new question. Chart reviewed I have spent more than 50% educating patient about potential diagnosis and neurological evaluation and coordinating care with patient's treatment team. Total time spent (including chart review and coordination of care): 35 min (this includes chart review). PG Care Time/CCT Total # of Minutes Spent Total Time Spent with Patient: Total time spent is greater than 50% in coordination of care (as documented) at patient's floor/unit and/or counseling patient: Coding Level of Care Code 94499 SUB INP/OBS CARE 2/35MIN Diagnoses Hyperosmolar hyperglycemic state (HHS) E11.00
[2023-08-05 12:09] LABS: Appearance Urine Clear (Clear); Bacteria Urine Automated None Seen (None Seen); Bilirubin Urine Negative (Negative); Blood Urine 1+ (Negative); Cast Urine Automated 0-2 /lpf (0-2); Color Urine Yellow; Epithelial Cell Urine Auto 0-2 /hpf (0-2); Glucose Urine UA 3+ (Negative); Ketones Urine Negative (Negative); Leukocyte Esterase Urine Negative (Negative); Nitrite Urine Negative (Negative); Protein Urine Negative (Negative); Specific Gravity Urine 1.025 (1.000-1.030); Urobilinogen Urine Negative (Negative)
[2023-08-05 13:28] LABS: Base Excess VBG -4.3 mEq/L; HCO3 VBG 20 mmol/L; Oxygen Saturation VBG 80.2 %; PCO2 VBG 32 mmHg (38-50); PO2 VBG 40 mmHg
[2023-08-05 13:45] LABS: BUN Creatinine Ratio 19.4 (10-20); Calcium 7.7 mg/dl (8.6-10.3); Est GFR (African American) 89.8 ml/min; Est GFR (Non-African American) 77.4 ml/min; Magnesium 1.6 mg/dl (1.7-2.4); Potassium 4.2 mmol/L (3.5-5.1)
[2023-08-05 16:46] LABS: HCO3 VBG 21 mmol/L; Oxygen Saturation VBG 86.5 %; PCO2 VBG 34 mmHg (38-50); PO2 VBG 46 mmHg
--- NOTE | 2023-08-05 16:46 | Pharmacy Report ---
Pharmacy Glycemic Short Note 2 - Date of Service August 05, 2023 - Glycemic Short BSG Results (Last 24 hours): 08/04/23 08/04/23 08/04/23 16:53 16:54 20:10 Glucose 268 H POC Glucose 221 H 235 H 08/04/23 08/05/23 08/05/23 20:58 00:02 00:36 Glucose 207 H 275 H POC Glucose 236 H 08/05/23 08/05/23 08/05/23 05:31 08:07 08:26 Glucose 296 H 279 H POC Glucose 270 H 08/05/23 08/05/23 08/05/23 09:01 10:03 11:07 Glucose POC Glucose 220 H 305 H* 229 H 08/05/23 08/05/23 08/05/23 12:18 13:09 13:13 Glucose 259 H POC Glucose 257 H 232 H 08/05/23 08/05/23 14:12 15:32 Glucose POC Glucose 227 H 252 H OUTPATIENT ANTIDIABETIC REGIMEN: * n/A * A1c 11% 08/02/23 ASSESSMENT: 08/04: * Patient remains on IV insulin infusion * Patient evaluated by Neuro - per note; patient alert, making eye contact and swallowing soft food. * Reviewed labs with Hospitalist. Calculated osmolarity of ~303, which remains slightly above normal range. Per discussion with Hospitalist, mental status has improved some and is likely at baseline. Diet has been advanced to full liquids. Insulin infusion goal range was reduced earlier today to 100-200 mg/dL. Provider would like to proceed with adding SQ basal insulin. Plans to continue dextrose containing fluids until evidence of pt tolerating diet. Will likely be difficult to transition patient off insulin while dextrose containing fluids running. 08/03: * Patient remains on IV insulin infusion for HHS. BSGs have ranged from 202 - 335 mg/dL thus far today. * Serum osmolality trending downward, calculated serum osmo of 325 mOsm/kg and corrected sodium of 153 meq/L this morning. * Per discussion with Hospitalist, mental status has not improved but likely cause is multifactorial (electrolyte abnormalities, progression of dementia, addition of antiepileptics). Since BSGs have been consistently at goal and serum osmo is improving, it was decided to lower goal range to 150-250 mg/dL. 08/02: * Patient admitted with HHS, insulin infusion initiated per protocol. Patient with dementia at baseline but severely altered on admission with possible seizure activity. Initial Measured serum osmolality 384, calculated 375 mOsm/kg. * Corrected sodium significantly elevated (168-173). Will need slow correction (goal 10-12 meq over 1st 24 hours). * Plan to continue insulin infusion until osmolality improved/improvement in mental status. * Current calculated serum osmolality 332 mOsm/kg, corrected sodium 157- currently on D51/2 + 20 kcl @ 150 ml/hr to be re-evaluated by hospitalist team PLAN FOR INPATIENT GLYCEMIC CONTROL: * Continue IV Insulin infusion * may discontinue when BSG is < 200 mg/dL x 2 consecutive BSG checks * Lantus 15 units SQ x 1 dose now * If transitioned to SQ insulin, would utilize goal range 140 - 180 mg/dL (targeting higher BSGs based on patient age and uncertain goals of care at this time)
[2023-08-05] MEDS: LANTUS PER UNIT CHARGE SC ONE (17:01)
[2023-08-05 17:14] LABS: Calcium 7.4 mg/dl (8.6-10.3); Creatinine Clr Calc Pharmacy 56.9 ml/min; Est GFR (African American) 96.6 ml/min; Est GFR (Non-African American) 83.4 ml/min; Magnesium 1.6 mg/dl (1.7-2.4)
[2023-08-05] MEDS: INSULIN ASPART PER UNIT CHARGE SC SCH (20:13)
[2023-08-05 20:54] LABS: HCO3 VBG 23 mmol/L; Oxygen Saturation VBG < 60.0 %; PCO2 VBG 40 mmHg (38-50); PO2 VBG 24 mmHg; pH VBG 7.37 (7.36-7.41)
[2023-08-05 21:16] LABS: BUN Creatinine Ratio 17.7 (10-20); Calcium 8.1 mg/dl (8.6-10.3); Creatinine Clr Calc Pharmacy 56.9 ml/min; Est GFR (African American) 96.6 ml/min; Est GFR (Non-African American) 83.4 ml/min; Magnesium 1.7 mg/dl (1.7-2.4); Potassium 4.5 mmol/L (3.5-5.1)
--- NOTE | 2023-08-05 21:22 | Electrocardiogram Report ---
Test Reason : Blood Pressure : / mmHG Vent. Rate : 109 BPM Atrial Rate : 109 BPM P-R Int : 126 ms QRS Dur : 076 ms QT Int : 338 ms P-R-T Axes : 006 099 -11 degrees QTc Int : 455 ms Sinus tachycardia Rightward axis Anterior infarct , age undetermined Abnormal ECG When compared with ECG of 28-DEC-2021 05:38, Questionable change in QRS axis T wave inversion now evident in Inferior leads Confirmed by Marcial Flynn ([id number]) on 08/05/2023 9:21:55 PM Referred By: REFERRED SELF Confirmed By:Marcial Flynn
[2023-08-06] MEDS: INSULIN ASPART PER UNIT CHARGE SC SCH (00:04)
[2023-08-06 00:59] LABS: Base Excess VBG 1.1 mEq/L; HCO3 VBG 25 mmol/L; Oxygen Saturation VBG 70.8 %; PCO2 VBG 37 mmHg (38-50); PO2 VBG 36 mmHg; pH VBG 7.44 (7.36-7.41)
[2023-08-06 01:18] LABS: BUN Creatinine Ratio 15.9 (10-20); Calcium 7.9 mg/dl (8.6-10.3); Creatinine Clr Calc Pharmacy 51.1 ml/min; Est GFR (African American) 93.3 ml/min; Est GFR (Non-African American) 80.5 ml/min; Magnesium 1.6 mg/dl (1.7-2.4); Potassium 4.2 mmol/L (3.5-5.1)
[2023-08-06 06:09] LABS: Base Excess VBG -1.5 mEq/L; HCO3 VBG 23 mmol/L; Oxygen Saturation VBG < 60.0 %; PCO2 VBG 37 mmHg (38-50); PO2 VBG 27 mmHg
[2023-08-06 06:34] LABS: BUN Creatinine Ratio 12.3 (10-20); Calcium 7.8 mg/dl (8.6-10.3); Creatinine Clr Calc Pharmacy 48.3 ml/min; Est GFR (African American) 88.3 ml/min; Est GFR (Non-African American) 76.2 ml/min; Magnesium 1.5 mg/dl (1.7-2.4); Potassium 4.4 mmol/L (3.5-5.1)
--- NOTE | 2023-08-06 06:49 | Hospitalist Progress Note ---
Date of Service August 06, 2023 Assessment & Plan (1) Hyperosmolar hyperglycemic state (HHS): (2) Hypernatremia: (3) Stroke-like symptoms: (4) Acute metabolic encephalopathy: (5) Alzheimer's dementia: (6) Type 2 diabetes mellitus: Plan 83 year old female with hx of dementia (on olanzapine for ~4 years) and DVT presenting with AMS and stroke like symptoms (lack of speech and reduced interactions) for about 2 days according to by the bedside. Acute metabolic encephalopathy Multifactorial - Secondary to Alzheimer/ hypernatremia/current illness Possible need for palliative care approach Will have GOC discussion with family today - they want patient to return home on d/c, case management following Hyperosmolar hyperglycemic state (HHS) -resolved HbA1C 11.0 s/p Insulin drip + DW5 + half NSS KCl @ 150ml/hr Pharmacy following d/c fluids - Pureed/ DM2 diet today (speech path recommendations) - will monitor for refeeding syndrome Hypernatremia - resolved Suspected due to osmotic diuresis with hyperglycemia. Corrected sodium for glucose 143 D/C fluids today BMP am Stroke-like symptoms: EEG was concerning for focal seizure. Neurology consulted and recommended continuing Keppra 500mg BID Brain MRI unremarkable Continue to monitor Alzheimer's dementia: Hold olanzapine as may be having seizure and current decreased responsiveness SLT consulted, aprec recommendations Diet started today - will monitor for refeeding syndrome Type 2 diabetes mellitus: On no medication on this at baseline HbA1C 8.4 2021 therefore suspect she has had this for some time. Admission and Anticipated Discharge Date Admission Date: August 02, 2023 Supervising Physician Co-Signing Physician Notes I personally examined the patient and verified all moore points of history and exam, discussed case, and agree with decision making with Dr Paolo Kowalski MS2 and Dr Tor Morales presentp.o. intake improving a little. Otherwise close to her baseline at home. Feels comfortable taking care of her at home. Vitals noted, in general she is sitting in the chair appears to be soundly sleeping but no distress. Breathing unlabored no accessory muscle use good effort. Skin without rashes pallor or icterus. Neuro without focal deficits. Metabolic encephalopathy - multifactorial. Hyperglycemic dehydration being the biggest part, possibly a little bit seizure related too - slowly improving p.o. intakehusband notes otherwise she is more or less back to her baseline. Hopefully home once her p.o. intake is adequate enough. Seizure - EEG -focal epileptiform abnormality. Started on Keppra - continue. Hold olanzapine since it lowers seizure threshold And may have been contributing to rigidity Fever -urine culture negative. No hypoxia. Normal WBC count. CXR with no acute pathology. -? sec to atelectasis. Severe Hypernatremia - resolved. HHS - resolved. A1c 11. Severe dementia - appears to have a very good understanding of her baseline state and dementia in general. Heparin SQ Subjective Divya is an 83 y/o female with HHS, hypernatremia, acute metabolic encephalopathy, AD, and DM II with no acute events overnight. Seem to be back at baseline as per on bedside Review of Systems Constitutional: as per Subjective / HPI Physical Exam Physical Exam: Constitutional: cachectic appearing, not interactive, awake with stimulus HEENT: NCAT CV: RRR, no murmurs, Extremities well perfused, no cyanosis/edema Resp: CTAB, no increased work of breathing MSK: no gross deformities appreciated Skin: warm, dry, no rash appreciated Neuro: not interactive Results & Data Results & Data Vital Signs (Past 12 Hours) Vital Signs Temp Pulse Pulse Resp BP Pulse Ox O2 Del Method 08/06/23 02:39 36.8 C 78 18 138/71 97 Room Air 08/05/23 23:17 82 08/05/23 22:49 36.6 C 86 18 125/52 L 97 Room Air 08/05/23 19:16 36.6 C 79 18 135/79 99 Room Air Resident Activity Tracking Resident Involvement: Resident Care Provided Care Provided: Adult Hospital Medicine
[2023-08-06] MEDS: LACTATED RINGER'S 1,000 ML IV SCH (07:28)
[2023-08-06] MEDS: LANTUS PER UNIT CHARGE SC SCH (08:15)
[2023-08-06] MEDS: MAGNESIUM SULFATE / D5W 1 GM/100 ML BAG IV SCH (08:31)
--- NOTE | 2023-08-06 12:58 | Pharmacy Report ---
Pharmacy Glycemic Short Note 2 - Date of Service August 06, 2023 - Glycemic Short BSG Results (Last 24 hours): 08/05/23 08/05/23 08/05/23 13:09 13:13 14:12 Glucose 259 H POC Glucose 232 H 227 H 08/05/23 08/05/23 08/05/23 15:32 16:29 17:01 Glucose 216 H POC Glucose 252 H 193 H 08/05/23 08/05/23 08/05/23 18:04 20:05 20:43 Glucose 211 H POC Glucose 157 H 259 H 08/05/23 08/06/23 08/06/23 23:36 00:42 03:53 Glucose 215 H POC Glucose 199 H 215 H 08/06/23 08/06/23 08/06/23 05:53 07:22 12:00 Glucose 256 H POC Glucose 234 H 200 H OUTPATIENT ANTIDIABETIC REGIMEN: * n/A * A1c 11% 08/02/23 ASSESSMENT: 08/05: * Dextrose containing IVFs discontinued this AM * Small amounts of carbs consumed w/ breakfast and lunch (16g and 8g CHO respectively) * Will continue "moderate" stress Lantus dosing at this time, however will spit the dose BID to give a greater buffer against hypoglycemia if PO intake poor. It is difficult to assess basal needs given overnight dextrose infusion. * Will continue current Novolog CF and CR for now - follow post-prandial trends 08/04: * Patient remains on IV insulin infusion * Patient evaluated by Neuro - per note; patient alert, making eye contact and swallowing soft food. * Reviewed labs with Hospitalist. Calculated osmolarity of ~303, which remains slightly above normal range. Per discussion with Hospitalist, mental status has improved some and is likely at baseline. Diet has been advanced to full liquids. Insulin infusion goal range was reduced earlier today to 100-200 mg/dL. Provider would like to proceed with adding SQ basal insulin. Plans to continue dextrose containing fluids until evidence of pt tolerating diet. Will likely be difficult to transition patient off insulin while dextrose containing fluids running. 08/03: * Patient remains on IV insulin infusion for HHS. BSGs have ranged from 202 - 335 mg/dL thus far today. * Serum osmolality trending downward, calculated serum osmo of 325 mOsm/kg and corrected sodium of 153 meq/L this morning. * Per discussion with Hospitalist, mental status has not improved but likely cause is multifactorial (electrolyte abnormalities, progression of dementia, addition of antiepileptics). Since BSGs have been consistently at goal and serum osmo is improving, it was decided to lower goal range to 150-250 mg/dL. 08/02: * Patient admitted with HHS, insulin infusion initiated per protocol. Patient with dementia at baseline but severely altered on admission with possible seizure activity. Initial Measured serum osmolality 384, calculated 375 mOsm/kg. * Corrected sodium significantly elevated (168-173). Will need slow correction (goal 10-12 meq over 1st 24 hours). * Plan to continue insulin infusion until osmolality improved/improvement in mental status. * Current calculated serum osmolality 332 mOsm/kg, corrected sodium 157- currently on D51/2 + 20 kcl @ 150 ml/hr to be re-evaluated by hospitalist team PLAN FOR INPATIENT GLYCEMIC CONTROL: * Basal insulin * Lantus 8 units SQ BID - hold if BSG less than 110 * Bolus insulin: Novolog SQ ACHS * Goal range: 140-180mg/dL * Correction factor: 30mg/dL/unit * Carb ratio: 1 unit per 15 grams CHO consumes with meals
--- NOTE | 2023-08-06 17:26 | Billing Data ---
Date of Service August 06, 2023 Coding Level of Care Code 52947 SUB INP/OBS CARE
--- NOTE | 2023-08-07 07:36 | Hospitalist Progress Note ---
Date of Service August 07, 2023 Assessment & Plan (1) Hyperosmolar hyperglycemic state (HHS): (2) Hypernatremia: (3) Stroke-like symptoms: (4) Acute metabolic encephalopathy: (5) Alzheimer's dementia: (6) Type 2 diabetes mellitus: Plan 83 year old female with hx of dementia (on olanzapine for ~4 years) and DVT presenting with AMS and stroke like symptoms (lack of speech and reduced interactions) for about 2 days according to by the bedside. She became afebrile (101.8 F) and tachycardic (120s) this AM around 6am meeting SIRS criteria, no confirmed infection. Ordered ESR, CRP, CBC, UA to determine cause. Plan to also repeat blood and urine cultures. Acute metabolic encephalopathy Multifactorial - Secondary to Alzheimer/ hypernatremia/current illness Possible need for palliative care approach Will have GOC discussion with family today - they want patient to return home on d/c, case management following Hyperosmolar hyperglycemic state (HHS) -resolved HbA1C 11.0 s/p Insulin drip + DW5 + half NSS KCl @ 150ml/hr Pharmacy following d/c fluids - Pureed/ DM2 diet today (speech path recommendations) - will monitor for refeeding syndrome BMP am Hypernatremia - resolved Suspected due to osmotic diuresis with hyperglycemia. Corrected sodium for glucose 143 D/C fluids today BMP am Stroke-like symptoms: EEG was concerning for focal seizure. Neurology consulted and recommended continuing Keppra 500mg BID Brain MRI unremarkable Continue to monitor Alzheimer's dementia: Hold olanzapine as may be having seizure and current decreased responsiveness SLT consulted, aprec recommendations Diet started today - will monitor for refeeding syndrome Type 2 diabetes mellitus: On no medication on this at baseline HbA1C 8.4 2021 therefore suspect she has had this for some time. Lantus 8 units BID - plan to discharge patient with this DVT prophylaxis: Lovenox Pureed /DM2 diet Discharge tomorrow am Admission and Anticipated Discharge Date Admission Date: August 02, 2023 Supervising Physician Co-Signing Physician Notes I personally examined the patient and verified all moore points of history and exam, discussed case, and agree with decision making with Dr Paolo Kowalski MS2 and Dr Tor Morales fever this morning. notes that she ate better for breakfast. Sleeping now. Vitals noted, in general she is sitting in the chair appears to be soundly sleeping but no distress. Breathing unlabored no accessory muscle use good effort. Skin without rashes pallor or icterus. Neuro without focal deficits. Metabolic encephalopathy - multifactorial. Hyperglycemic dehydration being the biggest part, possibly a little bit seizure related too - P.o. intake improvedappears to be safe/stable for home once everything is set up in this regard. Feverprobably urinary tract infection versus less likely atelectasis. Start Augmentin given that family goal is definitely to get her home as soon as is safe, awaiting urine culture. Seizure - EEG -focal epileptiform abnormality. Started on Keppra - continue. Holding olanzapine since it lowers seizure threshold and may have been contributing to rigidity Severe Hypernatremia - resolved. HHS - resolved. A1c 11. Will send home on a modest dose of basal only to try to help protect her against future HHS. Severe dementia - appears to have a very good understanding of her baseline state and dementia in general. Heparin SQ Subjective Divya is an 83 y/o female with HHS, hypernatremia, acute metabolic encephalo [place], AD, and DM II. Improvement in return to baseline today as per at bedside. Pt is unresponsive at baseline. notes pt was awake and interactive the previous night and was able to eat more this morning. Review of Systems Constitutional: as per Subjective / HPI Physical Exam Physical Exam: Constitutional: cachectic appearing, not interactive, awake with stimulus HEENT: NCAT CV: RRR, no murmurs, Extremities well perfused, no cyanosis/edema Resp: CTAB, no increased work of breathing MSK: no gross deformities appreciated Skin: warm, dry, no rash appreciated Neuro: not interactive Results & Data Results & Data Vital Signs (Past 12 Hours) Vital Signs Temp Pulse Pulse Resp BP Pulse Ox O2 Del Method 08/07/23 07:13 36.7 C 113 H 20 115/73 96 Room Air 08/07/23 02:52 37.0 C 93 H 22 112/69 95 Room Air 08/07/23 00:56 90 08/06/23 23:06 37.3 C 96 H 22 132/82 96 Room Air 08/06/23 21:20 Room Air Laboratory Results 08/07/23 08/07/23 08/07/23 Range/Units 11:36 07:09 05:47 WBC 9.22 (4.8-10.8) K/ul RBC 3.74 L (4.20-5.40) M/uL Hgb 11.2 L (12.0-16.0) g/dl Hct 34.9 L (37.0-47.0) % MCV 93.3 D (80.0-100.0) fL MCH 29.9 (25.0-34.0) pg MCHC 32.1 (32.0-36.0) g/dL RDW Std Deviation 43.8 (36.4-46.3) fL RDW Coeff of Dash 12.8 (11.5-14.5) % Plt Count 118 L (130-400) K/uL MPV 13.0 H (9.4-12.4) fL Immature Gran % (Auto) 0.4 % Neut % (Auto) 76.8 % Lymph % (Auto) 14.9 % [place] % (Auto) 6.7 % Eos % (Auto) 1.1 % Baso % (Auto) 0.1 % Neut # (Auto) 7.08 H (1.40-6.50) K/uL Lymph # (Auto) 1.37 (1.20-3.40) K/uL [place] # (Auto) 0.62 H (0.11-0.59) K/uL Eos # (Auto) 0.10 (0.00-0.50) K/uL Baso # (Auto) 0.01 (0.00-0.20) K/uL Immature Gran # (Auto) 0.04 (0.01-0.20) K/uL ESR 37 H (0-30) mm/hr Sodium (136-145) mmol/L Potassium (3.5-5.1) mmol/L Chloride (98-107) mmol/L Carbon Dioxide (21-32) mmol/L Anion Gap (3-11) BUN (6-23) mg/dl Creatinine (0.6-1.2) mg/dl Est Cr Clr Drug Dosing ml/min Est GFR ( Amer) ml/min Est GFR (Non-Af Amer) ml/min BUN/Creatinine Ratio (10-20) Glucose (70-99(Fasting)) mg/dl POC Glucose 199 H 155 H (70-99) mg/dl Calcium (8.6-10.3) mg/dl Phosphorus (2.5-4.9) mg/dl Magnesium (1.7-2.4) mg/dl C-Reactive Protein (0-0.5) mg/dl 08/07/23 08/06/23 08/06/23 Range/Units 05:42 20:44 16:02 WBC (4.8-10.8) K/ul RBC (4.20-5.40) M/uL Hgb (12.0-16.0) g/dl Hct (37.0-47.0) % MCV (80.0-100.0) fL MCH (25.0-34.0) pg MCHC (32.0-36.0) g/dL RDW Std Deviation (36.4-46.3) fL RDW Coeff of Dash (11.5-14.5) % Plt Count (130-400) K/uL MPV (9.4-12.4) fL Immature Gran % (Auto) % Neut % (Auto) % Lymph % (Auto) % [place] % (Auto) % Eos % (Auto) % Baso % (Auto) % Neut # (Auto) (1.40-6.50) K/uL Lymph # (Auto) (1.20-3.40) K/uL [place] # (Auto) (0.11-0.59) K/uL Eos # (Auto) (0.00-0.50) K/uL Baso # (Auto) (0.00-0.20) K/uL Immature Gran # (Auto) (0.01-0.20) K/uL ESR (0-30) mm/hr Sodium 141 (136-145) mmol/L Potassium 4.1 (3.5-5.1) mmol/L Chloride 111 H (98-107) mmol/L Carbon Dioxide 23 (21-32) mmol/L Anion Gap 7 (3-11) BUN 9 (6-23) mg/dl Creatinine 0.75 (0.6-1.2) mg/dl Est Cr Clr Drug Dosing 46.1 ml/min Est GFR ( Amer) 85.4 ml/min Est GFR (Non-Af Amer) 73.7 ml/min BUN/Creatinine Ratio 12.0 (10-20) Glucose 153 H (70-99(Fasting)) mg/dl POC Glucose 119 H 93 (70-99) mg/dl Calcium 8.4 L (8.6-10.3) mg/dl Phosphorus 2.7 (2.5-4.9) mg/dl Magnesium 1.7 (1.7-2.4) mg/dl C-Reactive Protein 3.78 H (0-0.5) mg/dl Diagnostic Findings Chest X-Ray 08/02/23 12:24 IMPRESSION: Cardiomegaly with no active disease in the chest. Electronically signed by: Eric Dunn M.D. 08/02/2023 12:[address] 08/02/23 12:24 IMPRESSION: 1. There is no hemorrhage, mass effect, or evidence of acute territorial ischemia by CT criteria. 2. Unremarkable CT angiogram of the brain. 3. Unremarkable CT angiogram of the neck. Electronically signed by: Eric Dunn M.D. 08/02/2023 12:57 PM Head CTA 08/02/23 12:24 IMPRESSION: 1. There is no hemorrhage, mass effect, or evidence of acute territorial ischemia by CT criteria. 2. Unremarkable CT angiogram of the brain. 3. Unremarkable CT angiogram of the neck. Electronically signed by: Eric Dunn M.D. 08/02/2023 12:57 PM Neck CTA 08/02/23 12:24 IMPRESSION: 1. There is no hemorrhage, mass effect, or evidence of acute territorial ischemia by CT criteria. 2. Unremarkable CT angiogram of the brain. 3. Unremarkable CT angiogram of the neck. Electronically signed by: Eric Dunn M.D. 08/02/2023 12:57 PM Brain MRI 08/02/23 20:27 IMPRESSION: No evidence of acute intracranial pathology. Electronically signed by: Diya Briceño MD 08/02/23 22:53 PM Chest X-Ray 08/04/23 11:05 IMPRESSION: Cardiomegaly with no active disease in the chest. Electronically signed by: Eric Dunn M.D. 08/04/2023 11:25 AM Resident Activity Tracking Resident Involvement: Resident Care Provided Care Provided: [facility]
[2023-08-07 07:50] LABS: Calcium 8.4 mg/dl (8.6-10.3); Creatinine Clr Calc Pharmacy 46.1 ml/min; Est GFR (African American) 85.4 ml/min; Est GFR (Non-African American) 73.7 ml/min; Magnesium 1.7 mg/dl (1.7-2.4); Phosphorus 2.7 mg/dl (2.5-4.9); Potassium 4.1 mmol/L (3.5-5.1)
[2023-08-07] MEDS: ACETAMINOPHEN 1,000 MG/100 ML VIAL IV STA (08:08)
[2023-08-07 09:58] LABS: C Reactive Protein 3.78 mg/dl (0-0.5)
[2023-08-07 10:23] LABS: Basophils # (auto) 0.01 K/uL (0.00-0.20); Basophils % (auto) 0.1 %; Eosinophils % (auto) 1.1 %; Hematocrit (blood only) 34.9 % (37.0-47.0); Hemoglobin 11.2 g/dl (12.0-16.0); Immature Granulocytes # (auto) 0.04 K/uL (0.01-0.20); Immature Granulocytes % (auto) 0.4 %; Lymphocytes # (auto) 1.37 K/uL (1.20-3.40); Lymphocytes % (auto) 14.9 %; Mean Corpuscular Hemoglobin 29.9 pg (25.0-34.0); Mean Corpuscular Hgb Conc 32.1 g/dL (32.0-36.0); Mean Corpuscular Volume 93.3 fL (80.0-100.0); Monocytes # (auto) 0.62 K/uL (0.11-0.59); Monocytes % (auto) 6.7 %; Neutrophils # (auto) 7.08 K/uL (1.40-6.50); Neutrophils % (auto) 76.8 %; Platelet Count 118 K/uL (130-400); RDW Coefficient of Variation 12.8 % (11.5-14.5); RDW Standard Deviation 43.8 fL (36.4-46.3); Red Blood Count 3.74 M/uL (4.20-5.40); White Blood Count 9.22 K/ul (4.8-10.8)
[2023-08-07 16:44] LABS: Appearance Urine Cloudy (Clear); Bacteria Urine Automated None Seen (None Seen); Bilirubin Urine Negative (Negative); Blood Urine 3+ (Negative); Color Urine Dark Yellow; Epithelial Cell Urine Auto 0-2 /hpf (0-2); Glucose Urine UA Negative (Negative); Ketones Urine Trace (Negative); Leukocyte Esterase Urine Trace (Negative); Nitrite Urine Negative (Negative); Protein Urine Trace (Negative); RBC Urine Automated >20 /hpf (0-2); Specific Gravity Urine 1.036 (1.000-1.030); Urobilinogen Urine Negative (Negative); WBC Urine Automated 21-50 /hpf (0-5)
[2023-08-07] MEDS: AMOXICILLIN/CLAVULANATE SUSP 400/57 MG 5 ML BTL PO SCH (17:47)
--- NOTE | 2023-08-07 19:32 | Billing Data ---
Date of Service August 07, 2023 Coding Level of Care Code 15436 SUB INP/OBS CARE
--- NOTE | 2023-08-08 07:02 | Discharge Summary ---
Date of Service August 08, 2023 Admission HPI Per Admitting Provider Divya Anglin is an 83 year old female who presents to the ER with mouth hanging down, decreased responsiveness and stopped talking. No family at bedside when seen and unable to get any history from the patient (saying yes to name only). History taken from ER provider. Last known well 18:00. Baseline she is requiring help with all ADLs including walking, feeding, dressing. Significant change in her baseline this morning therefore family felt she was having a stroke and brought her to the ER. Admission Exam Per Admitting Provider PHYSICAL EXAMINATION: GENERAL: Awake, alert, acute on chronically ill-appearing, in no distress HENT: Normocephalic, atraumatic. Oropharynx with dry mucous membranes and otherwise unremarkable. EYES: Normal conjunctiva. Sclera non-icteric. Will track. No disconjugate gaze. NECK: Fixed gaze to the left. RESPIRATORY: Clear to auscultation. CARDIAC: Tachycardic rate, normal rhythm. Extremities warm and well perfused. Pulses equal. ABDOMEN: Soft, non-distended. No tenderness to palpation. No rebound or guarding. No masses. MUSCULOSKELETAL: Chest examination reveals no tenderness. The back is symmetrical on inspection without obvious abnormality. There is no CVA tenderness to palpation. No joint edema. LOWER EXTREMITIES: Calves are equal size bilaterally and non-tender. No edema. No discoloration. NEURO: Nonverbal, Tracks with eyes, possible left facial droop, protruded tongue, limited motor assessment. SKIN: No rash or jaundice noted. Principal Diagnosis Hyperglycemia hyperosmolar state Discharge Exam Constitutional: NAD, cachectic-appearing. HEENT: Anicteric sclera and no conjunctival injection. Cardio: RRR. Normal S1 and S2. No murmurs appreciated. Resp: Breath sounds equal and CTA b/l. MSK: No gross deformities appreciated. Ext: Extremities well-perfused. No cyanosis, clubbing, edema. Skin: Warm, dry, no rashes. Neuro: Not interactive at baseline. Discharge Data Allergies Allergy/AdvReac Type Severity Reaction Status Date / Time clavulanic acid Allergy Unknown blisters Verified 08/02/23 15:42 haloperidol [From Haldol] AdvReac Severe COMBATIVE, Verified 08/02/23 15:42 AGITATED Consultations 08/02/23 13:59 ED Decision to Admit Stat 08/02/23 23:31 Consult Neurology Routine Ordered Studies 08/02/23 12:24 CT angio head w con Stat CT angio neck with con Stat CT head/brain wo con Stat 08/02/23 20:27 MRI Brain [MR brain seizure wo/w con] Stat Chest X-Ray 08/02/23 12:24 SINGLE VIEW CHEST CLINICAL HISTORY: Neurological deficit. Stroke like symptoms FINDINGS: An AP, portable, upright chest radiograph is compared to study dated 12/28/2021. The heart is enlarged. The pulmonary vasculature is noncongested. Chronic interstitial thickening is similar to previous. The lungs and pleural spaces are clear. No pneumothorax is seen. The skeletal structures are osteopenic. The bony thorax is grossly intact. Degenerative change and scoliosis is noted in the spine. An IVC filter is seen in the upper abdomen. Excreted IV contrast is seen in the renal collecting systems. IMPRESSION: Cardiomegaly with no active disease in the chest. ACT 112: Negative or not required by law. Electronically signed by: Eric Dunn M.D. 08/02/2023 12:[address] 08/02/23 12:[address] OF THE BRAIN; CT ANGIOGRAM OF THE BRAIN; CT ANGIOGRAM OF THE NECK CLINICAL HISTORY: Neurological deficit. Stroke like symptoms. Aphasia. COMPARISON STUDY: CT of the brain dated 12/28/2021. TECHNIQUE: Unenhanced axial CT scan of the brain is performed. Subsequently, following the IV administration of 119 of Optiray 320, CT angiogram of the head and neck was performed from the aortic arch to the vertex. Images are reviewed in the axial, sagittal, and coronal planes. 3-D MIPS images are created and assessed. IV contrast was administered without complication. All measurements were calculated based on NASCET criteria. A dose lowering technique was utilized adhering to the principles of ALARA. 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 There is no hemorrhage, mass effect, or evidence of acute territorial ischemia by CT criteria. There is no evidence of enhancing mass lesion on the angiogram phase images. The ventricles, sulci, and cisterns are prominent secondary to involutional change. Calderón-white matter differentiation is preserved. No extra- axial fluid collection is seen. Thoracic aorta: Visualized portions of the thoracic aorta are normal in caliber. The aortic arch demonstrates standard 3-vessel anatomy. Right carotid arterial system: The right common carotid artery is widely patent, as are the right internal and external carotid arteries. Calcified plaque is noted in the carotid bulb. Left carotid arterial system: The left common carotid artery is widely patent, as are the left internal and external carotid arteries. Mild calcified plaque is noted in the carotid bulb. Vertebral arteries: The vertebral arteries are widely patent bilaterally noting right-sided dominance. Subclavian arteries: Widely patent bilaterally. Intracranial vasculature: There is atherosclerotic calcification of the cavernous carotid arteries. The internal carotid arteries are patent at the skull base, as are the anterior and middle cerebral arteries bilaterally. The vertebrobasilar system and posterior cerebral arteries are widely patent. The right vertebral artery is dominant. There is no aneurysm, high-grade stenosis, or focal vessel cut off seen throughout the intracranial circulation. Jugular veins: Not well opacified. Dural sinuses: Not well opacified. Lung apices: Partially visualized upper lobe lung parenchyma appears clear. Soft tissues: The visualized pharyngeal soft tissues are normal in appearance noting angiographic phase technique. The oropharyngeal airway appears widely patent. The salivary and thyroid glands are normal in appearance. No cervical lymphadenopathy is seen. Skeletal structures: The skeletal structures are osteopenic. The calvarium appears intact. The cervical spine is maintained noting multilevel spondylosis. Orbits: The bony orbits are intact. Orbital contents are normal as visualized. Sinuses and mastoids: The paranasal sinuses are clear. There is trace right mastoid effusion. The left mastoid air cells are well pneumatized. Cerumen is noted in the right external auditory canal. IMPRESSION: 1. There is no hemorrhage, mass effect, or evidence of acute territorial ischemia by CT criteria. 2. Unremarkable CT angiogram of the brain. 3. Unremarkable CT angiogram of the neck. ACT 112: Negative or not required by law. Electronically signed by: Eric Dunn M.D. 08/02/2023 12:57 PM Head CTA 08/02/23 12:[address] OF THE BRAIN; CT ANGIOGRAM OF THE BRAIN; CT ANGIOGRAM OF THE NECK CLINICAL HISTORY: Neurological deficit. Stroke like symptoms. Aphasia. COMPARISON STUDY: CT of the brain dated 12/28/2021. TECHNIQUE: Unenhanced axial CT scan of the brain is performed. Subsequently, following the IV administration of 119 of Optiray 320, CT angiogram of the head and neck was performed from the aortic arch to the vertex. Images are reviewed in the axial, sagittal, and coronal planes. 3-D MIPS images are created and assessed. IV contrast was administered without complication. All measurements were calculated based on NASCET criteria. A dose lowering technique was utilized adhering to the principles of ALARA. 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 There is no hemorrhage, mass effect, or evidence of acute territorial ischemia by CT criteria. There is no evidence of enhancing mass lesion on the angiogram phase images. The ventricles, sulci, and cisterns are prominent secondary to i nvolutional change. Calderón-white matter differentiation is preserved. No extra- axial fluid collection is seen. Thoracic aorta: Visualized portions of the thoracic aorta are normal in caliber. The aortic arch demonstrates standard 3-vessel anatomy. Right carotid arterial system: The right common carotid artery is widely patent, as are the right internal and external carotid arteries. Calcified plaque is noted in the carotid bulb. Left carotid arterial system: The left common carotid artery is widely patent, as are the left internal and external carotid arteries. Mild calcified plaque is noted in the carotid bulb. Vertebral arteries: The vertebral arteries are widely patent bilaterally noting right-sided dominance. Subclavian arteries: Widely patent bilaterally. Intracranial vasculature: There is atherosclerotic calcification of the cavernous carotid arteries. The internal carotid arteries are patent at the skull base, as are the anterior and middle cerebral arteries bilaterally. The vertebrobasilar system and posterior cerebral arteries are widely patent. The right vertebral artery is dominant. There is no aneurysm, high-grade stenosis, or focal vessel cut off seen throughout the intracranial circulation. Jugular veins: Not well opacified. Dural sinuses: Not well opacified. Lung apices: Partially visualized upper lobe lung parenchyma appears clear. Soft tissues: The visualized pharyngeal soft tissues are normal in appearance noting angiographic phase technique. The oropharyngeal airway appears widely patent. The salivary and thyroid glands are normal in appearance. No cervical lymphadenopathy is seen. Skeletal structures: The skeletal structures are osteopenic. The calvarium appears intact. The cervical spine is maintained noting multilevel spondylosis. Orbits: The bony orbits are intact. Orbital contents are normal as visualized. Sinuses and mastoids: The paranasal sinuses are clear. There is trace right mastoid effusion. The left mastoid air cells are well pneumatized. Cerumen is noted in the right external auditory canal. IMPRESSION: 1. There is no hemorrhage, mass effect, or evidence of acute territorial ischemia by CT criteria. 2. Unremarkable CT angiogram of the brain. 3. Unremarkable CT angiogram of the neck. ACT 112: Negative or not required by law. Electronically signed by: Eric Dunn M.D. 08/02/2023 12:57 PM Neck CTA 08/02/23 12:[address] OF THE BRAIN; CT ANGIOGRAM OF THE BRAIN; CT ANGIOGRAM OF THE NECK CLINICAL HISTORY: Neurological deficit. Stroke like symptoms. Aphasia. COMPARISON STUDY: CT of the brain dated 12/28/2021. TECHNIQUE: Unenhanced axial CT scan of the brain is performed. Subsequently, following the IV administration of 119 of Optiray 320, CT angiogram of the head and neck was performed from the aortic arch to the vertex. Images are reviewed in the axial, sagittal, and coronal planes. 3-D MIPS images are created and assessed. IV contrast was administered without complication. All measurements were calculated based on NASCET criteria. A dose lowering technique was utilized adhering to the principles of ALARA. 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 There is no hemorrhage, mass effect, or evidence of acute territorial ischemia by CT criteria. There is no evidence of enhancing mass lesion on the angiogram phase images. The ventricles, sulci, and cisterns are prominent secondary to involutional change. Calderón-white matter differentiation is preserved. No extra- axial fluid collection is seen. Thoracic aorta: Visualized portions of the thoracic aorta are normal in caliber. The aortic arch demonstrates standard 3-vessel anatomy. Right carotid arterial system: The right common carotid artery is widely patent, as are the right internal and external carotid arteries. Calcified plaque is noted in the carotid bulb. Left carotid arterial system: The left common carotid artery is widely patent, as are the left internal and external carotid arteries. Mild calcified plaque is noted in the carotid bulb. Vertebral arteries: The vertebral arteries are widely patent bilaterally noting right-sided dominance. Subclavian arteries: Widely patent bilaterally. Intracranial vasculature: There is atherosclerotic calcification of the cavernous carotid arteries. The internal carotid arteries are patent at the skull base, as are the anterior and middle cerebral arteries bilaterally. The vertebrobasilar system and posterior cerebral arteries are widely patent. The right vertebral artery is dominant. There is no aneurysm, high-grade stenosis, or focal vessel cut off seen throughout the intracranial circulation. Jugular veins: Not well opacified. Dural sinuses: Not well opacified. Lung apices: Partially visualized upper lobe lung parenchyma appears clear. Soft tissues: The visualized pharyngeal soft tissues are normal in appearance noting angiographic phase technique. The oropharyngeal airway appears widely patent. The salivary and thyroid glands are normal in appearance. No cervical lymphadenopathy is seen. Skeletal structures: The skeletal structures are osteopenic. The calvarium appears intact. The cervical spine is maintained noting multilevel spondylosis. Orbits: The bony orbits are intact. Orbital contents are normal as visualized. Sinuses and mastoids: The paranasal sinuses are clear. There is trace right mastoid effusion. The left mastoid air cells are well pneumatized. Cerumen is noted in the right external auditory canal. IMPRESSION: 1. There is no hemorrhage, mass effect, or evidence of acute territorial ischemia by CT criteria. 2. Unremarkable CT angiogram of the brain. 3. Unremarkable CT angiogram of the neck. ACT 112: Negative or not required by law. Electronically signed by: Eric Dunn M.D. 08/02/2023 12:57 PM Brain MRI 08/02/23 20:27 Exam(s): MRI HEAD IV Amt: 4.5ml gadavist EXAM: MR Head With Intravenous Contrast CLINICAL HISTORY: Reason for exam: right posterior temporal seizure activity. TECHNIQUE: Magnetic resonance images of the head/brain with intravenous contrast in multiple planes. CONTRAST: Patient received 4.5ml gadavist of IV contrast COMPARISON: Comparison made to prior head CT from December 20, 2021. FINDINGS: Brain: Moderate ventriculomegaly. The flow voids at the base of the brain are intact. No mass. No hemorrhage. No acute infarct. Advanced bilateral hippocampal atrophy. Ventricles: Moderate to advanced ventricular megaly. Bones/joints: Unremarkable. No acute fracture. Sinuses: Unremarkable as visualized. No acute sinusitis. Mastoid air cells: Unremarkable as visualized. No mastoid effusion. Orbits: Unremarkable as visualized. IMPRESSION: No evidence of acute intracranial pathology. Electronically signed by: Diya Briceño MD 08/02/23 22:53 PM Chest X-Ray 08/04/23 11:05 SINGLE VIEW CHEST CLINICAL HISTORY: Hypernatremia. FINDINGS: An AP, portable, upright chest radiograph is compared to study dated 08/02/2023. The examination is degraded by portable technique and patient rotation. The heart is enlarged noting atherosclerotic calcification of the thoracic aorta. The pulmonary vasculature is noncongested. Chronic interstitial thickening is similar to previous. There is mild bibasilar scarring/atelectasis. No airspace consolidation or large pleural effusion is identified. No pneumothorax is seen. The skeletal structures are osteopenic. The bony thorax is grossly intact. Arthritic change is noted in the shoulders and spine. An IVC filter is partially visualized in the upper abdomen. IMPRESSION: Cardiomegaly with no active disease in the chest. ACT 112: Negative or not required by law. Electronically signed by: Eric Dunn M.D. 08/04/2023 11:25 AM Diabetes Follow up Diabetes Follow-up Needed for HgbA1c >9% Hospital Course (1) Hyperosmolar hyperglycemic state (HHS): (2) Hypernatremia: (3) Stroke-like symptoms: (4) Acute metabolic encephalopathy: (5) Alzheimer's dementia: (6) Type 2 diabetes mellitus: Plan 83 year old female with hx of dementia (on olanzapine for ~4 years) and DVT presenting with AMS and stroke like symptoms (lack of speech and reduced interactions) for about 2 days according to by the bedside. Acute metabolic encephalopathy Multifactorial - Secondary to Alzheimer/ hypernatremia/current illness Hospice home Systemic inflammatory response syndrome (SIRS)/UTI Pt became afebrile (101.8 F) and tachycardic (120s) yesterday AM around 6am meeting SIRS criteria UA positive for URI Blood and urine cultures repeated. UTI suspected and being treated with amoxicillin-clavulanate 10ml PO BIDM 5 days Type 2 diabetes mellitus: Hyperosmolar hyperglycemic state (HHS) - resolved HbA1C 11.0 s/p Insulin drip + DW5 + half NSS KCl @ 150ml/hr d/c fluids - Pureed/ DM2 diet yesterday (speech path recommendations) Sent with Insulin Glargline 6 units BID Recommended to follow with PCP for adjustment due to rapid change on Alzheimer's Hypernatremia - resolved Suspected due to osmotic diuresis with hyperglycemia. Corrected sodium for glucose 143 D/C fluids Stroke-like symptoms: EEG -focal epileptiform abnormality. Neurology consulted and recommended continuing Keppra 500mg BID Brain MRI unremarkable - f/u outpatient with neurology Alzheimer's dementia: Hold olanzapine as may be having seizure and current decreased responsivenes Total Time Total Time Spent Total Time Spent (In Minutes): <30 Discharge Plan Discharge Items Patient Disposition: Hospice - Home Reason For Visit: HYPEROSMOLAR HYPERGLYCEMIC STATE Discharge Diagnosis: Hyperosmolar hyperglycemic state Hypernatremia Activity: Resume your previous activity Non-emergency contact: Primary Care Provider Call non-emergency contact if: you have any medication questions Follow-up/Referrals: Otto Ko DO [Primary Care Provider] - Diet: Carb Consistent or DM2 Addtl Attending Provider Instructions: Divya was admitted due to increased lethargy. She was found with hyperosmolar hyperglycemic state (happens when your blood sugar levels are too high for a long period, leading to dehydration and confusion). She was treated with IV insulin and IV fluids. Additionally she was found with seizures which she was placed on Keppra, and anticonvulsive medication New medications: Insulin regimen * Lantus 6 units twice a day * Check blood sugar when patient is symptomatic, dizziness, shakiness, sweating, irritability Keppra 500 mg (5 ml) twice a day Augmentin 10 ml twice a day for 4 days * Hold this medication: Olanzapine Follow-up appointments: Make a follow-up appointment with your PCP within the next week. It is very important that you follow up with them shortly after discharge from the hospital. Keep all your follow-up appointments as already scheduled. If you cannot make an appointment, notify your provider. Medications: Your medication list has been reviewed and reconciled upon discharge to ensure accuracy and continuity of care. An updated list of all your medications is included with your hospital discharge paperwork. Please review this list closely, and make note of any changes. Take your medications as instructed; do not skip a dose of your medicines. Make sure all of your doctors know every medicine you are taking (including qfvj-iab-[id number] medicines, vitamins, and supplements). Call your primary care provider before taking any new medicines (including ukqc-bub-mnwkvnu medicines, vitamins, and supplements), because some of these may interact with your current medications, or may make your symptoms worse. Tell your primary care provider if you cannot afford your medications. CALL 911 OR GO TO THE EMERGENCY DEPARTMENT if you experience any of the following: Sudden, severe abdominal pain or nausea/vomiting Severe chest pain, or chest pain that radiates (moves) to your jaw or arm Sudden, severe shortness of breath or difficulty breathing Thank you for allowing us to participate in your care. Pending Studies at Discharge: No Stand-Alone Forms: [facility], Smoking Cessation Medications and DC Order Prescriptions: New levetiracetam [Keppra] 100 mg/mL solution 500 mg PO BID Qty: 200 0RF amoxicillin-pot clavulanate 400-57 mg/5 mL Suspension For Reconstitution 10 ml PO BIDM 4 Days Qty: 80 0RF (DME) blood sugar diagnostic Strip See Rx Instructions .Route Qty: 30 0RF Rx Instructions: As directed (DME) lancets [Acti-Se Lancets] 28 gauge misc See Rx Instructions .Route Qty: 100 0RF Rx Instructions: As directed (DME) blood-glucose meter Misc See Rx Instructions .Route Qty: 1 0RF Rx Instructions: As directed (DME) pen needle, diabetic, safety 31 gauge x 5/32" needle See Rx Instructions .Route Qty: 100 0RF Rx Instructions: Use with insulin insulin glargine 100 unit/mL (3 mL) insulin pen 6 unit subcut BID Qty: 15 0RF Continued aspirin 81 mg Tablet,Delayed Release (Dr/Ec) 81 mg PO DAILY ckorpdre-neukbdu-ymic-lutein Tablet 1 tab PO QAM melatonin 10 mg Tablet 10 mg PO HS zinc citrate 16.7 mg Tablet,Chewable 0 mg PO QAM Rx Instructions: PT'S NOT SURE OF STRENGTH, JUST A GUMMY. Discontinued olanzapine [Zyprexa] 5 mg tablet See Rx Instructions .ROUTE .COMPLEX Rx Instructions: TAKES 5 MG AT 1000, THEN 2.5 MG AT 1400(ONLY IF NOT SLEEPING), THEN 5 MG AT 1600, AND 7.5 MG AT 2000. PER PT'S , "IF SHE IS SLEEPING AT 1600, SOMETIMES DON'T GIVE DOSE". Discharge Orders: Discharge Order (Routine); Ordered 08/08/23 Ordered By: Jose Reeves/Other Patient Handouts: High Blood Sugar (Hyperglycemia), Hypoglycemia (Low Blood Sugar), Managing Type 2 Diabetes, Injection Pens Dc Admission Data Admit Date/Time: 08/02/23 14:43 Attending Provider: Levi Rajput Admit Provider: Wes Sarmiento Primary Care Provider: Otto Ko Other Providers: Wes Sarmiento; Dwaine Simpson Other Interventions: Discharge Summary Assessment (RN) Last Done: 08/08/23 09:49 Supervising Physician Co-Signing Physician Notes I personally examined the patient and verified all moore points of history and exam, discussed case, and agree with decision making with Dr Paolo AGUILERA and Dr Tor Morales No new problems. Family ready to take her home. Discussed fever and probable UTI. Discussed outpatient insulin management. Vitals noted, in general she is Laying in bed soundly sleeping but no distress. Breathing unlabored no accessory muscle use good effort. Skin without rashes pallor or icterus. Neuro without focal deficits. Metabolic encephalopathy - multifactorial. Hyperglycemic dehydration being the biggest part, possibly a little bit seizure related too - P.o. intake improvedappears to be safe/stable for home today Feverprobably urinary tract infection versus less likely atelectasis. appears to be improving on Augmentin. Continue at discharge. Follow urine culture. Seizure - EEG -focal epileptiform abnormality. Started on Keppra - continue. Holding olanzapine since it lowers seizure threshold and may have been contributing to rigidity Severe Hypernatremia - resolved. HHS - resolved. A1c 11. Will send home on a modest dose of basal only to try to help protect her against future HHS. Discussed this with family in depth. Answered all questions to the best my ability and to their satisfaction. Severe dementia - appears to have a very good understanding of her baseline state and dementia in general. Heparin SQ Resident Activity Tracking Resident Involvement: Resident Care Provided Care Provided: Adult Hospital Medicine
[2023-08-08 07:36] LABS: Basophils # (auto) 0.01 K/uL (0.00-0.20); Basophils % (auto) 0.1 %; Eosinophils % (auto) 2.6 %; Hematocrit (blood only) 32.6 % (37.0-47.0); Hemoglobin 10.7 g/dl (12.0-16.0); Immature Granulocytes # (auto) 0.09 K/uL (0.01-0.20); Immature Granulocytes % (auto) 1.1 %; Lymphocytes # (auto) 2.15 K/uL (1.20-3.40); Lymphocytes % (auto) 27.5 %; Mean Corpuscular Hemoglobin 30.5 pg (25.0-34.0); Mean Corpuscular Hgb Conc 32.8 g/dL (32.0-36.0); Mean Corpuscular Volume 92.9 fL (80.0-100.0); Monocytes # (auto) 0.61 K/uL (0.11-0.59); Monocytes % (auto) 7.8 %; Neutrophils # (auto) 4.77 K/uL (1.40-6.50); Neutrophils % (auto) 60.9 %; Platelet Count 156 K/uL (130-400); RDW Coefficient of Variation 12.9 % (11.5-14.5); RDW Standard Deviation 43.8 fL (36.4-46.3); Red Blood Count 3.51 M/uL (4.20-5.40); White Blood Count 7.83 K/ul (4.8-10.8)
[2023-08-08 08:02] LABS: BUN Creatinine Ratio 15.4 (10-20); Calcium 8.3 mg/dl (8.6-10.3); Creatinine Clr Calc Pharmacy 44.3 ml/min; Est GFR (African American) 81.5 ml/min; Est GFR (Non-African American) 70.3 ml/min; Magnesium 1.7 mg/dl (1.7-2.4); Phosphorus 3.1 mg/dl (2.5-4.9)
--- NOTE | 2023-08-08 17:11 | Billing Data ---
Date of Service August 08, 2023 Coding Level of Care Code 18669 IN/OBS DISCH 30 MIN/LESS
== END 2023-08-08 10:38 | disposition hospice, home (50) | DRG 637 ==
LOC: ED 12:06 → SUATTDRO 14:43 → 2E 14:43 → 3E 08-07 10:03